=== PATIENT | male | born 1945 | race Caucasian/White ===

== ENCOUNTER → 2022-10-01 14:40 | Outpatient (BNVA) | payer MEDICARE, BC, OTHER, SELFPAY | PROVIDERS: PCP Internal Medicine; Visit Provider Psychiatry & Neurology Neurology | DX: R26.89 Other abnormalities of gait and mobility (principal) | CPT/HCPCS: 99202 ==

== ENCOUNTER → 2022-12-23 13:48 | Outpatient (BNVA) | payer MEDICARE, OTHER, SELFPAY | PROVIDERS: PCP Internal Medicine; Visit Provider Psychiatry & Neurology Neurology | DX: R26.89 Other abnormalities of gait and mobility (principal) | CPT/HCPCS: 99212 ==

== ENCOUNTER 2023-01-21 19:25 | Outpatient (REF) | payer MEDICARE, OTHER, SELFPAY ==
--- NOTE | ~2023-01-21 | MR_ITS ---
EXAMINATION: MRI OF THE BRAIN WITHOUT CONTRAST CLINICAL INFORMATION: Neurodegenerative disease. Abnormality of gait and mobility. COMPARISON: There are no prior studies available for comparison. Some images are degraded by patient motion artifact. TECHNIQUE: MRI of the brain was obtained using routine sequences without contrast. FINDINGS: No diffusion abnormalities are identified to suggest an acute or subacute infarct. No mass effect or midline shift is seen. The ventricles and sulci are commensurately prominent consistent with diffuse volume loss; volume loss is also noted in the cerebellum. There are extensive areas of increased T2 and FLAIR signal in the periventricular subcortical white matter, most consistent with chronic microvascular ischemic changes. There may be a 2 cm arachnoid cyst in the anterior left posterior fossa. The brainstem appears normal. No pathologic magnetic susceptibility artifact is identified on the gradient refocused acquisition. The craniocervical junction and marrow signal appear normal. 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 The major intracranial flow-voids at the level of the [place] are preserved. The dural venous sinus flow-voids are maintained. The mastoid air cells are well-aerated. There are small retention cysts in the inferior maxillary sinuses bilaterally. MR/MR head/brain wo con IMPRESSION: 1. There are no acute bleeds or territorial infarcts. No masses are demonstrated. 2. There are chronic microvascular ischemic changes and there is diffuse volume loss, including the cerebellum. There may be a 2 cm arachnoid cyst in the anterior left posterior fossa. 3. A 2 mm focus of low T1 signal in the pars intermedia of the pituitary gland may be consistent with a small pars intermedia cyst.
== END 2023-01-21 19:26 | disposition home or self-care (01) ==
LOC: HO.MRI 19:25
PROVIDERS: PCP Internal Medicine; Visit Provider Psychiatry & Neurology Neurology
DX: R26.89 Other abnormalities of gait and mobility (principal)
CPT/HCPCS: 70551

== ENCOUNTER 2023-06-08 14:55 | Outpatient (AMB) | payer MEDICARE, OTHER, SELFPAY ==
--- NOTE | 2023-06-08 15:09 | A.OFFVIS_ITS ---
Intake Vital Signs 06/08/23 15:14 Height 5 ft 11 in BP 122/78 Blood Pressure Location Rt brachial Position Sitting Respiration 17 Pulse 82 Pulse Source Pulse Oximeter Pulse Oximetry (%) 96 Oxygen Delivery Method Room Air Intake Visit Reasons: 4munsteadiness/stiffness (OK PER )-confirmed Intake Note: Pt presents to the office for his 4 month follow up and to discuss the results of his MRI. Allergies No Known Allergies Allergy (Verified 06/08/23 15:11) Medication List - Last Reconciled 06/08/23 by Demi Garcia MD albuterol sulfate 90 mcg/actuation inhalation amlodipine 2.5 mg PO DAILY bupropion HCl ea PO carbidopa-levodopa 25-100 mg 1 tab PO TID carbidopa-levodopa 25-100 mg (Sinemet) 1 tab PO QID fluoxetine 40 mg PO levothyroxine 75 mcg PO multivitamin 1 tab PO potassium chloride ER tabs PO temazepam 30 mg PO HPI HPI Comments History of Present Illness Details 78y/o male comes for evaluation of stiff ness , balance issues and gait problems.he responded to carbidopa/levodopa 25/100 1tab 11am, 4pm, 8pm.His gait and transfer in and out of the car is better no side effects No knee pain.He still has falls while transferring.He has urinary incontinence.He reports some cognitive issues. Previous history-He had bilateral knee replacements in November 2021 and March 2022. He was wheelchair bound for 6-12 mths prior to that which made his recovery slow. His knee pain resolved but his gait and balance did not improve. His balance and gait issues started atleast 10 years ago - he had knee pain. 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 He also had back pain many years ago treated with cortisone shots and has resolved. He denies any numbness, denies any tremors. He has h/o falls.He reports fh/o knee issues and has gait problems. He reports mild dysarthria. 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 Asthma Depression Hypothyroidism Surgical History Hx of shoulder surgery Hx of knee surgery Hx of appendectomy Family History Father COPD (chronic obstructive pulmonary disease) Mother Leukemia Social History Alcohol intake: never Patient Tobacco Use Status: Never used Tobacco Physical Exam Vital Signs: Last Vital Signs Pulse 82 06/08/23 15:14 Resp 17 06/08/23 15:14 BP 122/78 06/08/23 15:14 Pulse Ox 96 06/08/23 15:14 Oxygen Delivery Method Room Air 06/08/23 15:14 Const General: cooperative, healthy appearing and comfortable Nutritional Appearance: average body habitus Orientation/consciousness: patient oriented x3 Limitations: wheelchair HEENT Head: Yes normal to inspection and Yes normocephalic Eyes Pupils: Equal, round and reactive pupils present Neuro Other: good facial expression and blink Gait - better , good stride and unable to walk without assistance normal posture No tremors no cog wheel rigidity General: patient oriented x3 Cranial nerves: Yes Facial sensation intact/muscles of mastication intact, Yes Equal, round and reactive pupils present, Yes Bilaterally intact EOM present, Yes Nystagmus not present, Yes Normal facial strength present, Yes Midline tongue present, Yes Symmetric palate elevation present and Yes Ability to bilaterally elevate shoulders present Gait exam (Neuro): Shuffling gait present and Wide-based gait present Motor exam (neuro): 5/5 motor strength present throughout and Normal motor muscle tone present throughout Assessment & Plan Assessment & Plan (1) Neurodegenerative gait disorder: Comment: Frontal gait disorder, ? astasia katia Code(s): R26.89 - Other abnormalities of gait and mobility Plan Increase carbidopa/levodopa 25/100 1.5 tab qid side effects including GI distress, hypetension, dizziness etc discussed Medications: Changed From carbidopa-levodopa 25-100 mg (Sinemet) [id number] 1 tab PO QID 120 tabs 6RF To carbidopa-levodopa 25-100 mg (Sinemet) [id number] 1.5 tabs PO QID 180 tabs 6RF Coding Level of Care Code Est Pt Level 4 (93739) Diagnoses Neurodegenerative gait disorder R26.89
[2023-06-08 15:14] VITALS: BP 122/78; PULSE 82; RESP 17; O2SAT 96
== END 2023-06-08 15:32 | disposition home or self-care (01) ==
PROVIDERS: Visit Provider Psychiatry & Neurology Neurology
DX: R26.89 Other abnormalities of gait and mobility (principal)
CPT/HCPCS: 99214

== ENCOUNTER → 2023-06-08 14:55 | Outpatient (BNVA) | payer MEDICARE, OTHER, SELFPAY | PROVIDERS: Visit Provider Psychiatry & Neurology Neurology | DX: R26.89 Other abnormalities of gait and mobility (principal) | CPT/HCPCS: 99212 ==

== ENCOUNTER 2023-12-14 15:09 | Outpatient (AMB) | payer MEDICARE, OTHER, SELFPAY ==
--- NOTE | 2023-12-14 15:23 | A.OFFVIS_ITS ---
Vital Signs 12/14/23 15:24 Height 5 ft 11 in BP 168/82 H Blood Pressure Location Rt brachial Position Sitting Respiration 16 Pulse 71 Pulse Source Pulse Oximeter Pulse Oximetry (%) 98 Oxygen Delivery Method Room Air Intake Visit Reasons: 6M follow up-CONF Intake Note: Pt presents to the office for a 6 month follow up for Neurodegenerative gait disorder. Rn Angiography Required: No Allergies No Known Allergies Allergy (Verified 12/14/23 15:24) HPI Comments Details: 78y/o male comes for follow up of stiffness , balance issues and gait problems.He had knee surgery in Jul 2023 - revision and he is feeling better.He had mitarl valve repair in Sep 2023 and he is feeling better. He walks short distances with a walker. He responded to carbidopa/levodopa 25/100 1.5 tab 11am, 4pm, 8pm, 11pm .His gait and transfer in and out of the car is better no side effects No falls.He has urinary incontinence.He reports some cognitive issues. Speech is Ok Previous history-He had bilateral knee replacements in November 2021 and March 2022. He was wheelchair bound for 6-12 mths prior to that which made his recovery slow. His knee pain resolved but his gait and balance did not improve. His balance and gait issues started atleast 10 years ago - he had knee pain. 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 He also had back pain many years ago treated with cortisone shots and has resolved. He denies any numbness, denies any tremors. He has h/o falls.He reports fh/o knee issues and has gait problems. He reports mild dysarthria. 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 Asthma Depression Hypothyroidism Surgical History H/O mitral valve repair Hx of heart surgery H/O left knee surgery Hx of shoulder surgery Hx of knee surgery Hx of appendectomy Family History Father COPD (chronic obstructive pulmonary disease) Mother Leukemia Social History Alcohol intake: never Patient Tobacco Use Status: Never used Tobacco Physical Exam Vital Signs: Last Vital Signs Pulse 71 12/14/23 15:24 Resp 16 12/14/23 15:24 BP 168/82 H 12/14/23 15:24 Pulse Ox 98 12/14/23 15:24 Oxygen Delivery Method Room Air 12/14/23 15:24 Const General: cooperative, healthy appearing and comfortable Nutritional Appearance: average body habitus Orientation/consciousness: patient oriented x3 Limitations: wheelchair HEENT Head: Yes normal to inspection and Yes normocephalic Eyes Pupils: Equal, round and reactive pupils present Neuro Other: good facial expression and blink Gait - better , good stride and unable to walk without assistance normal posture No tremors no cog wheel rigidity General: patient oriented x3 Cranial nerves: Yes Facial sensation intact/muscles of mastication intact, Yes Equal, round and reactive pupils present, Yes Bilaterally intact EOM present, Yes Nystagmus not present, Yes Normal facial strength present, Yes Midline tongue present, Yes Symmetric palate elevation present and Yes Ability to bilaterally elevate shoulders present Gait exam (Neuro): Shuffling gait present and Wide-based gait present Motor exam (neuro): 5/5 motor strength present throughout and Normal motor muscle tone present throughout Deep tendon reflexes (DTR's): Right triceps reflex intensity grade: 1+, Left triceps reflex intensity grade: 1+, Rt Biceps (C5, C6): 1+, Left biceps reflex intensity grade: 1+, Right brachioradialis reflex intensity grade: 1+, Left brachioradialis reflex intensity grade: 1+, Right patellar reflex intensity grade: 1+ and Left patellar reflex intensity grade: 1+ Assessment & Plan Assessment & Plan (1) Neurodegenerative gait disorder: Comment: Frontal gait disorder, ? astasia abasia Code(s): R26.89 - Other abnormalities of gait and mobility Category: Medical Plan Continue carbidopa/levodopa 1 tabs qid side effects including GI distress, hypotension, dizziness etc discussed OT for hands Orders: Referrals [facility] Referral R26.89 - Other abnormalities of gait and mobility, R26.9 - Unspecified abnormalities of gait and mobility Coding Level of Care Code Est Pt Level 4 (45513) Diagnoses Neurodegenerative gait disorder R26.89
[2023-12-14 15:24] VITALS: BP 168/82; PULSE 71; RESP 16; O2SAT 98
== END 2023-12-14 15:58 | disposition home or self-care (01) ==
PROVIDERS: PCP Internal Medicine; Visit Provider Psychiatry & Neurology Neurology
DX: R26.89 Other abnormalities of gait and mobility (principal)
CPT/HCPCS: 99214

== ENCOUNTER → 2023-12-14 15:09 | Outpatient (BNVA) | payer MEDICARE, BC, OTHER, SELFPAY | PROVIDERS: PCP Internal Medicine; Visit Provider Psychiatry & Neurology Neurology | DX: R26.89 Other abnormalities of gait and mobility (principal) | CPT/HCPCS: 99212 ==

== ENCOUNTER 2024-08-31 14:27 | Outpatient (AMB) | payer MEDICARE, OTHER, SELFPAY ==
[2024-08-31 14:28] VITALS: BP 126/80
--- NOTE | 2024-08-31 14:28 | MHC.OFFVIS ---
Vital Signs 08/31/24 14:28 Height 5 ft 11 in BP 126/80 Blood Pressure Location Rt brachial Position Sitting Intake Visit Reasons: 6 mon follow up Intake Note: Patient presents for 6 month follow up Allergies No Known Allergies Allergy (Verified 08/31/24 14:32) Medication List - Last Reconciled 08/31/24 by Demi Garcia MD albuterol sulfate 90 mcg/actuation inhalation amlodipine 2.5 mg PO DAILY bupropion HCl SR ea PO carbidopa-levodopa 25-100 mg 2 tab at8 am 1.5tab at 11am 2tabs 5 pm 1.5 tabs 11pm orally 4 times a day; fluoxetine 40 mg PO levothyroxine 75 mcg PO multivitamin 1 tab PO potassium chloride ER tabs PO temazepam 30 mg PO HPI Comments Details: 79y/o male comes for follow up of stiffness , balance issues and gait problems.No worsening of his gait and balance.Mild worsening of his ADLS. He has difficulty writing He had knee surgery in Jul 2023 - revision and he is feeling better.He had mitral valve repair in Sep 2023 and he is feeling better. He walks short distances with a walker.No falls He responded to carbidopa/levodopa 25/100 1.5 tab 11am, 4pm, 8pm, 11pm .His gait and transfer in and out of the car is better no side effects .He has urinary incontinence.He reports some cognitive issues. Speech is Ok Previous history-He had bilateral knee replacements in November 2021 and March 2022. He was wheelchair bound for 6-12 mths prior to that which made his recovery slow. His knee pain resolved but his gait and balance did not improve. His balance and gait issues started atleast 10 years ago - he had knee pain. 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 He also had back pain many years ago treated with cortisone shots and has resolved. He denies any numbness, denies any tremors. He has h/o falls.He reports fh/o knee issues and has gait problems. He reports mild dysarthria. 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 Asthma Depression Hypothyroidism Surgical History H/O mitral valve repair Hx of heart surgery H/O left knee surgery Hx of shoulder surgery Hx of knee surgery Hx of appendectomy Family History Father COPD (chronic obstructive pulmonary disease) Mother Leukemia Social History Alcohol intake: never Patient Tobacco Use Status: Never used Tobacco Physical Exam Vital Signs: Last Vital Signs BP 126/80 08/31/24 14:28 Const General: cooperative, healthy appearing and comfortable Nutritional Appearance: average body habitus Orientation/consciousness: patient oriented x3 Limitations: wheelchair HEENT Head: Yes normal to inspection and Yes normocephalic Eyes Pupils: Equal, round and reactive pupils present Neuro Other: good facial expression and blink normal posture No tremors no cog wheel rigidity General: patient oriented x3 Cranial nerves: Yes Facial sensation intact/muscles of mastication intact, Yes Equal, round and reactive pupils present, Yes Bilaterally intact EOM present, Yes Nystagmus not present, Yes Normal facial strength present, Yes Midline tongue present, Yes Symmetric palate elevation present and Yes Ability to bilaterally elevate shoulders present Gait exam (Neuro): Shuffling gait present and Wide-based gait present Motor exam (neuro): 5/5 motor strength present throughout and Normal motor muscle tone present throughout Deep tendon reflexes (DTR's): Left patellar reflex intensity grade: 1+ Assessment & Plan Assessment & Plan (1) Neurodegenerative gait disorder: Comment: Frontal gait disorder, ? astasia abasia Code(s): R26.89 - Other abnormalities of gait and mobility Category: Medical Plan Increase carbidopa/levodopa 25/100 2-1.5-2-1.5 and in 1 mth will increase to 2tabs qid side effects including GI distress, hypotension, dizziness etc discussed OT for hands PT for gait Orders: Referrals [facility] Referral R26.89 - Other abnormalities of gait and mobility, W19.XXXA - Unspecified fall, initial encounter Medications: Changed From carbidopa-levodopa 25-100 mg 1 tab PO QID 180 tabs 6RF To carbidopa-levodopa 25-100 mg 2 tab at8 am 1.5tab at 11am 2tabs 5 pm 1.5 tabs 11pm orally 4 times a day; 180 tabs 6RF Refilled carbidopa-levodopa 25-100 mg 2 tab at8 am 1.5tab at 11am 2tabs 5 pm 1.5 tabs 11pm orally 4 times a day; 180 tabs 0RF Coding Level of Care Code Est Pt Level 4 (92057) Complex EM visit Add On G2211 Diagnoses Neurodegenerative gait disorder R26.89
--- OUTSIDE RECORDS SUMMARY | 2024-08-31 19:09 | XMS_ITS | Data Portability ---
Author Organization [place] [facility] [place] Address [address] [place] [address] Care Team Providers Care Load Manager Name Role Phone CAIT SALAZAR Referring Provider [facility] Primary Care Provider [phone] Assessment Encounter Date Assessment Date Assessment LastModified by Organization Details LastModified Time 04/14/2023 04/14/2023 HPI : Patient is here for 1 year follow-up for a LEFT total knee replacement.? ? he also has a history of a right total knee replacement with me from 1.5 years ago. He has been doing well in regards to both knees really minimal pain. 3 weeks ago he developed a fall on the left knee. There was some increased swelling and pain at that time. It has since reduced. He has a history of patellar dislocations and the procedure for this. He did think that he had more lateral subluxation of the patella after he fell, but this has resolved as well. Right now he reports minimal pain. He uses a walker because of balance issues. Overall, patient reports good pain relief in the knee and satisfactory pentecostal of function in terms of activities of daily living. Physical Exam : Patient is well nourished, well-developed, in no acute distress, with appropriate mood and affect. The patient is oriented to time, place, and person. Respirations are even and unlabored. There is no inguinal adenopathy. The left limb is well-perfused, with well healed skin incision. The patient demonstrates good knee motion, stability, and strength. The knee moves from 0-135 degrees. The alignment of the knee is neutral. Muscle strength is normal. There is more swelling in the left knee compared to the right knee. No lateral subluxation with range of motion of the left knee. The right limb is well-perfused, with well healed skin incision. The patient demonstrates good knee motion, stability, and strength. The knee moves from 0-135 degrees. The alignment of the knee is neutral. Muscle strength is normal. Pedal pulses are palpable. Hip examination, including flexion and internal rotation, was negative in that groin pain was not produced.produced. Assessment/Plan : This patient is functioning well 1 year after staged bilateral total knee arthroplasty. Continue knee conditioning exercises. [id number] medications as needed. He is instructed to keep me updated if he has continued subluxations given his history. Ultimate failure may occur due to mechanical wear, loosening or breakage. Follow-up is recommended to assess for the possibility of failure. Follow-up at 5 years from surgery unless there are new issues before then. Not available 04/14/2023 14:24:35 07/06/2023 07/06/2023 HPI : ? patient is coming in with new complaints in his left knee, status post left total knee replacement in February 2022 by me. He did have a history of Sandy osteotomy many years ago with recurrent patellar dislocations. He is now having worsening left knee symptoms. These seem to be related to patellar subluxations. I did see him in March and he had this event, but seem to be resolving. It has now worsened. He states that is limiting his weightbearing. He states it is painful when weightbearing. Review of systems is negative for rapidly progressive neurological disorder, chest pain, shortness of breath, fevers, chills, or any signs of active or persistent local or systemic infection. Physical Exam : Patient is well nourished, well-developed, in no acute distress, with appropriate mood and affect. The patient is oriented to time, place, and person. Respirations are even and unlabored. Gait evaluation does reveal a limp. There is no inguinal adenopathy. Examination of the contralateral knee shows normal range of motion, strength, no tenderness, and intact skin. The affected limb is well-perfused, shows a grossly normal motor and sensory examination. The previous skin incision is well-healed. Left knee motion is significantly reduced and does cause significant pain. The patella is dislocated laterally in the flexion position. The knee moves from 10-90 degrees. The alignment of the knee is neutral. Muscle strength is normal. Pedal pulses are palpable. Hip examination, including flexion and internal rotation, was negative in that groin pain was not produced. Assessment/Plan : The patient is an appropriate candidate for consideration of revision left total knee replacement for patellar dislocation and chronic patellar subluxation. Plan will likely be for medial reefing, lateral release, and patellar resurfacing. We are going to try avoid tibial and femoral component revision, due to comorbidities associated with this and patient preference. An extensive discussion was conducted on the variety of surgical and non-surgical treatment options available to the patient. A risk/benefit analysis was discussed with the patient reviewing the advantages and disadvantages of surgical intervention at this time. A full explanation was given of the nature and the purpose of the procedure and anesthesia, its benefits, possible alternative methods of diagnosis of treatment, the risks involved, the possibility of complications, the foreseeable consequences of the procedure and the possible results of the non-treatment. No guarantee or assurance was made as to the results that may be obtained. Specifically, the risks were identified to include, but are not limited, to the following: Infection, phlebitis, pulmonary embolism, , paralysis, dislocation, pain, stiffness, instability, limp, weakness, breakage, leg-length inequality, uncontrolled bleeding, nerve injury, blood vessel injury, pressure sores, anesthetic risks, delayed healing of wound and bone, and wear and loosening. Discussed with patients that these risks are increased compared to primary knee replacement surgery. Further discussion was undertaken with the patient about the details of surgical preparation, treatment and postoperative rehabilitation including medical clearance, the hospital course and the postoperative rehabilitation involved. As a part of routine preoperative counseling, the patient either denies recent smoking history or, after education was provided, agrees to practice smoking cessation over at least two months prior to surgery. The patient has also been counseled regarding the elevated risk of surgical complications in patients with an elevated BMI. The patient demonstrates understanding of the increased risk in such patients. The patient was encouraged to participate in physical activity and diet modification under the direction of their primary care physician. We will plan on proceeding with left total knee arthroplasty using the [place] revision total knee replacement system. However, it is possible during the preoperative planning process or due to intraoperative findings that a different implant system may be utilized in order to optimize the patient's outcome. We had a discussion regarding implant and bearing options. We had a detailed discussion of the advantages and limitations of the specific implant designs, materials and bearing surfaces. All questions were answered to the patient's satisfaction, and the patient was asked to call the office with any further concerns. All in all, I feel that this patient is a good candidate for surgical reconstruction.? I did have discussion with patient and son, that I am not confident this will bring a correction solution for his patellar issues. Often times, the patella can resubluxate over time even after soft tissue repair. He and his son are aware of this. More invasive bony and revision procedures are not preferred by patient. Plan for left limited revision total knee replacement at [place] [facility] [place]. Not available 07/06/2023 16:14:21 08/17/2023 08/17/2023 HPI : Patient is here for a 2 week follow-up from a left revision total knee replacement for patellar maltracking. He is recovering well. He has been in a knee immobilizer. He has left this on. This was removed today. He has minimal pain. He has been at a rehab facility. Physical Exam : Patient is well nourished, well- developed, in no acute distress, with appropriate mood and affect. The patient is AAOx3. The patient demonstrates good knee motion and strength. The incision is c/d/i patient is able to straight leg raise with good patellar tracking.. Assessment/Plan : The patient is functioning well 2 weeks from left revision total knee arthroplasty for patellar maltracking. Continue anticoagulation therapy for 2 week. Patient will be likely discharged from the rehab facility. He is getting get home physical therapy. Instruction for weightbearing as tolerated. No range of motion of the left knee. He is can to stay in the hinged knee brace which we are providing today locked in extension. He will follow-up with me in 1 month we will get x-rays of the left knee at that time. Patient was prescribed a t scope for above diagnosis. The patient is ambulatory but has weakness and/or instability of their Left knee which requires stabilization from this semi-rigid / rigid orthosis to improve their function. Not available 08/17/2023 14:59:30 09/14/2023 09/14/2023 HPI : Patient is here for a 6 week follow-up from a revision total knee replacement. He has been in a knee immobilizer locked in extension. He is not having any pain. He is functioning appropriately. Physical Exam : Patient is well nourished, well- developed, in no acute distress, with appropriate mood and affect. The patient is AAOx3. The patient demonstrates good knee motion and strength. The incision is well healed. There is no lateral subluxation of the patella with range of motion of the knee. Range of motion is 0 to 105 degrees today. Assessment/Plan : The patient is functioning well 6 weeks from revision total knee replacement for lateral patellar subluxation. The patella is not subluxating. We discussed possibilities today, including continued brace wear, versus allowing range of motion. It is possible that further knee extension would allow for further healing, although it is unclear the appropriate timeline. It is patient preference to discontinue knee immobilizer, which I think is reasonable. He is aware that there is a risk that the patella can resubluxate with time even after our revision surgery. Plan for weight bearing as tolerated. Range of motion as tolerated, but would avoid aggressive flexion. He will follow-up with me in 2 months with x-rays of the left knee at that time. Not available 09/14/2023 15:58:18 11/16/2023 11/16/2023 HPI : Patient is here for 3-month follow-up from left revision total knee replacement. He is recovering very well. He reports 0 pain. He reports good function. He is not having the preoperative symptoms around the patella. He is happy with his progress. He is ambulating with a walker. Physical Exam : Patient is well nourished, well-developed, in no acute distress, with appropriate mood and affect. The patient is oriented to time, place, and person. Respirations are even and unlabored. There is no inguinal adenopathy. Examination of the contralateral knee shows normal range of motion, strength, no tenderness, and intact skin. The affected limb is well-perfused, with well healed skin incision. The patient demonstrates good knee motion, stability, and strength. The knee moves from 0-125 degrees. The alignment of the knee is neutral. Muscle strength is normal. The patella is tracking appropriately throughout the range of motion. Pedal pulses are palpable. Hip examination, including flexion and internal rotation, was negative in that groin pain was not produced. Assessment/Plan : The patient is functioning well 6 weeks from revision total knee replacement for lateral patellar subluxation. The patella is not subluxating. He is aware that there is a risk that the patella can resubluxate with time even after our revision surgery. He will follow-up with me at 1 year from surgery with repeat x-rays of the left knee at that time. Not available 11/16/2023 16:09:00 Plan of Treatment Reminders Order Date Submit Date Provider Last Modified By Organization Details Last Modified Time Details Appointments None recorded. Lab None recorded. Referral None recorded. Procedures None recorded. Surgeries total knee arthroplast y (SURG) 2022 023 [facility] [place] [facility], [address] [place] [address], [address], 3 08:34:57 Imaging XR, knee, 3 view 2022 023 [email or web address] [facility], [address], [address], [place], [address], 3 14:22:00 XR, knee, 3 view 2022 023 [facility], [address], [address], [place], [address], 3 16:36:37 XR, knee, 3 view 2023 024 [email or web address] [facility], [address], [place], [address], 4 15:47:31 XR, knee, 3 view 2023 024 [facility], [address], [place], [address], 4 16:55:18 Medication Orders None recorded. Patient TargetsNo targets recorded. Patient Instructions Encounter Date Encounter Id Patient Instructions Last Modified By Organization Details Last Modified Time 04/14/2023 [id number] AP, lateral, and patellar views of the left knee demonstrate a left total knee replacement with 50 mm tibial stem component without any signs of hardware related complications. There is some lateral subluxation of the patellar component, although it is still within the notch. Not available 04/14/2023 14:24:25 09/14/2023 [id number] AP, lateral, patellar views of the left knee demonstrate a left total knee replacement. The patella is within the trochlear groove. There is lateral tilt. There is no signs of other hardware related complications. Not available 09/14/2023 15:58:46 11/16/2023 [id number] AP, lateral, and patellar radiographs of the left knee taken today demonstrate satisfactory position and alignment of components following left total knee replacement. There is lateral tilt of the patella as seen in x-rays from August, with no change in tilt. The patella is appropriately positioned within the trochlear groove. Not available 11/16/2023 16:09:20 Reason for Referral None Reported. Problems Name Problem SNOMED Code Status Onset Date Resolution Date Notes Provider Name and Address Organization Details Recorded Time Recurrent subluxation of the patella 644361480 Active 2022 Natalia Guevara [facility], [place] [facility] 4 14:43:50 History of hypothyroid ism 880441434 Active 2022 Natalia Guevara [facility], [place] [facility] 4 14:43:50 History of hypertensio n 115771905 Active 2022 Natalia Guevara [facility], [place] [facility] 4 14:43:50 Bipolar affective disorder, current episode depression 753863738 Active 2022 Natalia Guevara null, [place] [facility] 4 14:43:50 Asthma 975438840 Active 2022 Natalia Guevara null, [place] [facility] 4 14:43:50 Tremor 97816971 Active 2022 Natalia Guevara null, [place] [facility] 4 14:43:50 Recurrent falls 140219387 Active 2022 Natalia Guevara null, [place] [facility] 4 14:43:51 Osteoarthri tis of left knee joint 2381411738572 09 Active 2021 Natalia Guevara null, [place] [facility] 4 14:43:51 Hypokalemia 44112297 Active 2022 Natalia Guevara null, [place] [facility] 4 14:43:51 Essential hypertensio n 85619752 Active 2021 Natalia Guevara null, [place] [facility] 4 14:43:51 History of revision of left total knee arthroplast y 4054890652248 03 Active 2022 Natalia Guevara null, [place] [facility] 4 14:43:51 Cyst of kidney 753173082 Active 2022 Natalia Guevara null, [place] [facility] 4 14:43:51 Urgent desire to urinate 03252996 Active 2022 Natalia Guevara [facility], [place] [facility] 4 14:43:51 Spinal stenosis 80091729 Active 2022 Natalia Guevara [facility], [place] [facility] 4 14:43:51 Obstructive sleep apnea syndrome 31820255 Active 2022 Natalia Guevara null, [place] [facility] 4 14:43:51 Severe mitral valve regurgitati on 365165494 Active 2022 Natalia Guevara [facility], [place] [facility] 4 14:43:51 Problem Notes None recorded. Procedures Surgical History Date Name Laterality Status Provider Name and Address Organization Details Recorded Time 08/02/20 23 TOTAL KNEE ARTHROPLASTY (SURG) completed Jaci Lamar [place] [facility] 08/19/2023 17:54:46 Knee Surgery completed Natalia Guevara [place] [facility] 12/22/2022 14:19:32 Knee Surgery completed Natalia Guevara [place] [facility] 12/22/2022 14:19:33 Imaging Results None recorded. Procedure Notes None recorded. Medical Equipment None Reported. Allergies Allergen ID Allergen Name Allergen Category Reaction Reaction Severity Criticality Documentation Date Start Date Code Code System Note Provider Name and Address Organization Details Recorded Time 08332 No known allergy (situatio n) Not available Not available Not available Not available 08/17/2023 67696 6003 SNOMED Natalia Guevara null, [place] [facility] 14:43:49 Medications Name Sig Start Date Stop Date Status Note LastModified by Organization Details LastModified Time multivitami n tablet TAKE 1 TABLET BY MOUTH EVERY DAY active Not Available Not Available No t Available fluoxetine 40 mg capsule TAKE 2 CAPSULES BY MOUTH EVERY DAY active Not Available Not Available No t Available potassium chloride ER 10 mEq capsule,ext ended release active Not Available Not Available Not Available prednisone 10 mg tablet 11/22 completed Not Available Not Available Not Available doxycycline hyclate 100 mg capsule 100 mg by oral route. 08/11 completed Not Available Not Available Not Available albuterol sulfate 2.5 mg/3 mL (0.083 %) solution for nebulizatio n active Not Available Not Available Not Available prednisone 20 mg tablet 11/22 completed Not Available Not Available Not Available amlodipine 2.5 mg tablet TAKE 1 TABLET BY MOUTH DAILY 11/22 completed Not Available Not Available Not Available sulfamethox azole 800 mg-trimetho prim 160 mg tablet 11/22 completed Not Available Not Available Not Available aspirin 81 mg tablet,darien yed release 81 mg by oral route. active Not Available Not Available No t Available Macrobid 100 mg capsule 100 mg by oral route. 08/08 completed Not Available Not Available Not Available meloxicam 7.5 mg tablet 7.5 mg by oral route. 08/19 completed Not Available Not Available Not Available Zofran 4 mg tablet Take 4 mg every 6 hours by oral route. 11/22 completed Not Available Not Available Not Available potassium chloride ER 20 mEq tablet,exte nded release(par t/cryst) TAKE 1 TABLET BY MOUTH TWICE DAILY FOR 5 DAYS 11/22 completed Not Available Not Available Not Available famotidine 20 mg tablet 11/22 completed Not Available Not Available Not Available methocarbam ol 750 mg tablet 750 mg 4 times a day by oral route. 08/25 completed Not Available Not Available Not Available temazepam 15 mg capsule TAKE 1 TO 2 CAPSULES BY MOUTH AT BEDTIME NEEDED active Not Available Not Available No t Available tamsulosin 0.4 mg capsule 0.4 mg by oral route. active Not Available Not Available No t Available pantoprazol e 40 mg tablet,darien yed release 40 mg by oral route. active Not Available Not Available No t Available warfarin 5 mg tablet active Not Available Not Available No t Available levothyroxi ne 150 mcg tablet 300 ugs by oral route. active Not Available Not Available No t Available Senokot 8.6 mg tablet 1 {tbl} by oral route. 08/18 completed Not Available Not Available Not Available albuterol sulfate HFA 90 mcg/actuati on aerosol inhaler active Not Available Not Available Not Available carbidopa 25 mg-levodopa 100 mg tablet 1.5 {tbl}s by oral route. active Not Available Not Available No t Available amoxicillin 875 mg-potassiu m clavulanate 125 mg tablet TAKE 1 TABLET BY MOUTH TWICE DAILY FOR 5 DAYS 11/22 completed Not Available Not Available Not Available Tylenol Extra Strength 500 mg tablet 1000 mg every 6 hours by oral route. 08/25 completed Not Available Not Available Not Available bupropion HCl SR 200 mg tablet,12 hr sustained-r elease TAKE 1 TABLET BY MOUTH EVERY DAY active Not Available Not Available No t Available bupropion HCl XL 300 mg 24 hr tablet, extended release 11/22 completed Not Available Not Available Not Available metoprolol tartrate 25 mg tablet active Not Available Not Available No t Available carbidopa 25 mg-levodopa 100 mg disintegrat ing tablet active Not Available Not Available N ot Available Vitamin D3 active Not Available Not Av ailable Not Available Vitamin B12 active Not Available Not A vailable Not Available oxycodone 5 mg tablet,oral ONLY (not feeding tubes) Take 5 mg every 4 hours by oral route. 11/22 completed Not Available Not Available Not Available Vitals Date Recorded Body height Body mass index (BMI) Body weight Provider Name and Address Organization Details Last Updated DateTime 07/06/2023 177.8 cm 25.8 kg/m2 [address]1936.[address] [place] [facility] 07/06/2023 13:56:26 Date Recorded Body height Body mass index (BMI) Body weight Provider Name and Address Organization Details Last Updated DateTime 08/17/2023 177.8 cm 25.8 kg/m2 71655.[address] [place] [facility] 08/17/2023 14:44:30 Date Recorded Body height Provider Name an d Address Organization Details Last Updated DateTime 09/14/[address] [place] [facility] 09/14/2023 14:58:12 Date Recorded Body height Body mass index (BMI) Body weight Provider Name and Address Organization Details Last Updated DateTime 11/16/2023 177.8 cm 25.8 kg/m2 87681.[address] [place] [place] [facility] 11/16/2023 15:33:01 Social History None recorded. Functional Status None recorded. Mental Status None recorded. Family History Relationship Description Onset Age of this Age Resolved Age Notes LastModified by Organization Details LastModified Time Mother Family history of malignant neoplasm [email or web address] Not available 2022 14:19:26 Medical History Condition Response Asthma Y Immunizations Vaccine Type Date Status Note Provider Nam e and Address Organization Details Recorded Time COVID-19, mRNA, LNP-S, PF, 30 mcg/0.3 mL dose 03/14/2022 completed Natalia Guevara [facility], [place] [facility] 08/17/2023 14:43:51 Past Encounters Encounter ID Performer Location Encounter Start Date Encounter Closed Date Diagnosis/Indication Diagnosis SNOMED-CT Code Diagnosis ICD10 Code Diagnosis Note [id number] MD ALEX [address] [place] [address] 12/22/2022 13:52:56 12/22/2022 14:45:33 History of right total knee replacement [id number] 442452 Z96.651 History of left total knee replacement 2652551968 516410 Z96.652 Aftercare 429180017 Z47. 1 [id number] MD LAURYN Ge [address] [place] [address] [place] [address] 04/14/2023 13:37:20 04/14/2023 14:22:00 History of left total knee replacement [id number] 021331 Z96.652 [id number] MD LAURYN Ge [address] [address] 07/06/2023 13:31:27 07/06/2023 14:41:11 History of left total knee replacement 7065491875 649130 Z96.652 Recurrent subluxation of the patella 233365961 M22.12 [id number] MD LAURYN Ge [place] [id number] 08/17/2023 14:17:38 08/17/2023 15:20:19 History of revision of left total knee arthroplasty 6966186064 41501 Z96.652 [id number] MD LAURYN Ge [place] [id number] 09/14/2023 14:18:59 09/14/2023 15:47:31 History of left total knee replacement 6977031243 514499 Z96.652 Aftercare 106494020 Z47. 1 [id number] MD LAURYN Ge [address] [address] 11/16/2023 15:09:36 11/16/2023 16:03:31 History of total knee arthroplasty 1134985966 105 Z96.652 Additional diagnosis detail: Status post left knee replacemen t Surgical follow-up [id number] Z47.1 Z96.652 Additional diagnosis detail: Aftercare following left knee joint replacemen t surgery Health Concerns Section Related Observation LastModified by Organization Detai ls LastModified Time None Recorded Concern Status LastModified by Organization Details LastModified Time None Recorded Advance Directives Directive None Recorded Payers Encounter Date Sequence Insurance Name Policy Number Policy Hansen Covered Member ID Hansen Member ID Guarantor Name 04/14/2023 1 MEDICARE B-CT: NGS Lukasz Felicitas Roberts [id number] Lukaszelton Roberts 04/14/2023 2 [employer]AN ([place]) [id number] Lukaszelton Roberts [id number] Lukasz Felicitas Roberts 07/06/2023 1 MEDICARE B-CT: NGS Lukasz Roberts [id number] Lukasz Felicitas Roberts 07/06/2023 2 [employer]AN ([place]O) [id number] Lukaszelton Roberts [id number] Lukasz Felicitas Roberts 08/17/2023 1 MEDICARE B-CT: NGS Lukasz Roberts [id number] Lukasz Roberts 08/17/2023 2 [employer] ([place]) [id number] Lukaszelton Roberts [id number] Lukasz Roberts 09/14/2023 1 MEDICARE B-CT: NGS Lukasz Roberts [id number] Lukasz Felicitas Roberts 09/14/2023 2 [employer] ([place]) [id number] Lukasz Roberts [id number] Lukasz Roberts 11/16/2023 1 MEDICARE B-CT: NGS Lukasz Roberts [id number] Lukasz Felicitas Roberts 11/16/2023 2 [employer] (PPO) [id number] Lukasz Roberts [id number] Lukasz Roberts
--- OUTSIDE RECORDS SUMMARY | 2024-08-31 19:11 | XMS_ITS ---
Author Name [facility] Organization Unknown Results Test Name/Text Value Interpretation Date Range Source PT TIME PPP 20.6sec Above high normal [id number] 10.5 - 13.3 [facility] INR PPP 1.7 Above high normal [id number] 0.8 - 1.1 [facility] PT TIME PPP 18.9sec Above high normal [id number] 10.5 - 13.3 [facility] INR PPP 1.6 Above high normal [id number] 0.8 - 1.1 [facility] MAGNESIUM SERPL MCNC 2mg/dL Normal 1.7 - 2.8 [facility] CREAT SERPL [facility] 0.8mg/dL Normal [id number] 0.7 - 1.3 [facility] SODIUM SERPL SCNC 137mmol/L Normal [id number] 135 - 145 [facility] GLUCOSE SERPL [facility]NC 97mg/dL Normal [id number] 70 - 199 [facility] Glomerular filtration rate/1.73 sq M. predicted 89 Normal 60 - [facility] CHLORIDE SERPL SCNC 103mmol/L Normal [id number] 98 - 107 [facility] HCO3 SER SCNC 27mmol/L Normal [id number] 24 - 32 [facility] POTASSIUM SERPL SCNC 3.7mmol/L Normal [id number] 3.5 - 5.1 [facility] ANION GAP SERPL SCNC 7mmol/L Normal [id number] 5 - 14 [facility] BUN SERPL [facility] 23mg/dL Above high normal [id number] 9 - 20 [facility] CALCIUM SERPL [facility] 8.5mg/dL Normal [id number] 8.4 - 10 .2 [facility] DIFFERENTIAL TYPE AUTOMATED Normal [id number] [facility] NEUTROPHILS NFR BLD AUTO 75% Above high normal [id number] 44 - 74 [facility] BASOPHILS NFR BLD AUTO 1.1% Normal [id number] 0 - 2 [facility] MONOCYTES NFR BLD AUTO 10.4% Normal [id number] 2 - 12 [facility] HCT VFR BLD AUTO 27.1% Below low normal [id number] 40 - 54 [facility] MONOCYTES NO. BLD AUTO 0.8K/uL Normal [id number] 0 - 0.8 [facility] RDW RBC AUTO RTO 15.1% Normal [id number] 12.1 - 17. 7 [facility] PLATELET NO. BLD AUTO 329K/uL Normal [id number] 150 - 450 [facility] EOSINOPHIL NO. BLD AUTO 0.3K/uL Normal [id number] 0 - 0.5 [facility] RBC NO. BLD AUTO 2.95M/uL Below low normal [id number] 4.7 - 6 [facility] MCH RBC QN AUTO 31.1pg Normal [id number] 25 - 33 [facility] MCHC RBC AUTO MCNC 33.9g/dL Normal [id number] 32 - 36 [facility] HGB BLD MCNC 9.2g/dL Below low normal [id number] 13.5 - 18 [facility] BASOPHILS IN BLOOD BY AUTOMATED COUNT 0.1K/uL Normal [id number] 0 - 0.2 [facility] WBC NO. BLD AUTO 7.8K/uL Normal [id number] 4 - 10.5 [facility] EOSINOPHIL NFR BLD AUTO 4% Normal [id number] 0 - 6 [facility] LYMPHOCYTES NFR BLD AUTO 9.5% Below low normal [id number] 20 - 48 [facility] MCV RBC AUTO 92fL Normal [id number] 78 - 100 [facility] NEUTROPHILS NO. BLD AUTO 5.8K/uL Normal [id number] 1.8 - 7.8 [facility] LYMPHOCYTES NO. BLD AUTO 0.7K/uL Below low normal [id number] 1 - 3.2 [facility] PMV BLD AUTO 7.8fL Normal [id number] 7.4 - 11.4 [facility] PHOSPHATE SERPL MCNC 2.9mg/dL Normal [id number] 2.5 - 4.5 [facility] MAGNESIUM SERPL MCNC 2.1mg/dL Normal [id number] 1.7 - 2.8 [facility] CREAT SERPL MCNC 0.8mg/dL Normal [id number] 0.7 - 1.3 [facility] SODIUM SERPL SCNC 138mmol/L Normal [id number] 135 - 145 [facility] GLUCOSE SERPL MCNC 81mg/dL Normal [id number] 70 - 199 [facility] Glomerular filtration rate/1.73 sq M. predicted 89 Normal [id number] 60 - [facility] CHLORIDE SERPL SCNC 102mmol/L Normal [id number] 98 - 107 [facility] HCO3 SER SCNC 30mmol/L Normal [id number] 24 - 32 [facility] POTASSIUM SERPL SCNC 3.8mmol/L Normal [id number] 3.5 - 5.1 [facility] ANION GAP SERPL SCNC 6mmol/L Normal [id number] 5 - 14 [facility] BUN SERPL MCNC 20mg/dL Normal [id number] 9 - 20 [facility] CALCIUM SERPL MCNC 8.2mg/dL Below low normal [id number] 8 .4 - 10.2 [facility] PT TIME PPP 19.7sec Above high normal [id number] 10.5 - 13.3 [facility] INR PPP 1.7 Above high normal [id number] 0.8 - 1.1 [facility] RBC NO. BLD AUTO 2.83M/uL Below low normal [id number] 4.7 - 6 [facility] MCH RBC QN AUTO 30.8pg Normal [id number] 25 - 33 [facility] MCHC RBC AUTO MCNC 33.1g/dL Normal [id number] 32 - 36 [facility] HGB BLD MCNC 8.7g/dL Below low normal [id number] 13.5 - 18 [facility] WBC NO. BLD AUTO 6.2K/uL Normal [id number] 4 - 10.5 [facility] HCT VFR BLD AUTO 26.3% Below low normal [id number] 40 - 54 [facility] MCV RBC AUTO 93fL Normal [id number] 78 - 100 [facility] RDW RBC AUTO RTO 15.4% Normal [id number] 12.1 - 17. 7 [facility] PLATELET NO. BLD AUTO 241K/uL Normal [id number] 150 - 450 [facility] PMV BLD AUTO 8fL Normal [id number] 7.4 - 11.4 [facility] GLUCOSE BLDC GLUCOMTR MCNC 87mg/dL Normal [id number] 70 - 199 [facility] GLUCOSE BLDC GLUCOMTR MCNC 93mg/dL Normal [id number] 70 - 199 [facility] GLUCOSE BLDC GLUCOMTR MCNC 84mg/dL Normal [id number] 70 - 199 [facility] DIFFERENTIAL TYPE AUTOMATED Normal [id number] [facility] NEUTROPHILS NFR BLD AUTO 77% Above high normal [id number] 44 - 74 [facility] BASOPHILS NFR BLD AUTO 0.5% Normal [id number] 0 - 2 [facility] MONOCYTES NFR BLD AUTO 11% Normal [id number] 2 - 12 [facility] HCT VFR BLD AUTO 26.4% Below low normal [id number] 40 - 54 [facility] MONOCYTES NO. BLD AUTO 0.8K/uL Normal [id number] 0 - 0.8 [facility] RDW RBC AUTO RTO 15.5% Normal [id number] 12.1 - 17. 7 [facility] PLATELET NO. BLD AUTO 202K/uL Normal [id number] 150 - 450 [facility] EOSINOPHIL NO. BLD AUTO 0.2K/uL Normal [id number] 0 - 0.5 [facility] RBC NO. BLD AUTO 2.85M/uL Below low normal [id number] 4.7 - 6 [facility] MCH RBC QN AUTO 31.3pg Normal [id number] 25 - 33 [facility] MCHC RBC AUTO MCNC 33.8g/dL Normal [id number] 32 - 36 [facility] HGB BLD MCNC 8.9g/dL Below low normal [id number] 13.5 - 18 [facility] BASOPHILS IN BLOOD BY AUTOMATED COUNT 0K/uL Normal [id number] 0 - 0.2 [facility] WBC NO. BLD AUTO 7.7K/uL Normal [id number] 4 - 10.5 [facility] EOSINOPHIL NFR BLD AUTO 2.2% Normal [id number] 0 - 6 [facility] LYMPHOCYTES NFR BLD AUTO 9.3% Below low normal [id number] 20 - 48 [facility] MCV RBC AUTO 92.7fL Normal [id number] 78 - 100 [facility] NEUTROPHILS NO. BLD AUTO 5.8K/uL Normal [id number] 1.8 - 7.8 [facility] LYMPHOCYTES NO. BLD AUTO 0.7K/uL Below low normal [id number] 1 - 3.2 [facility] PMV BLD AUTO 8.5fL Normal [id number] 7.4 - 11.4 [facility] CREAT SERPL MCNC 0.7mg/dL Normal [id number] 0.7 - 1.3 [facility] SODIUM SERPL SCNC 136mmol/L Normal [id number] 135 - 145 [facility] GLUCOSE SERPL MCNC 87mg/dL Normal [id number] 70 - 199 [facility] Glomerular filtration rate/1.73 sq M. predicted 93 Normal [id number] 60 - [facility] CHLORIDE SERPL SCNC 102mmol/L Normal [id number] 98 - 107 [facility] HCO3 SER SCNC 28mmol/L Normal [id number] 24 - 32 [facility] POTASSIUM SERPL SCNC 3.8mmol/L Normal [id number] 3.5 - 5.1 [facility] ANION GAP SERPL SCNC 6mmol/L Normal [id number] 5 - 14 [facility] BUN SERPL MCNC 18mg/dL Normal [id number] 9 - 20 [facility] CALCIUM SERPL MCNC 8.5mg/dL Normal [id number] 8.4 - 10 .2 [facility] MAGNESIUM SERPL MCNC 2.2mg/dL Normal [id number] 1.7 - 2.8 [facility] PT TIME PPP 18.8sec Above high normal [id number] 10.5 - 13.3 [facility] INR PPP 1.6 Above high normal [id number] 0.8 - 1.1 [facility] APTT TIME PPP 30sec Normal [id number] 25 - 37 [facility] GLUCOSE BLDC GLUCOMTR MCNC 110mg/dL Normal [id number] 70 - 199 [facility] HGB BLD MCNC 9.1g/dL Below low normal [id number] 13.5 - 18 [facility] HCT VFR BLD AUTO 26.7% Below low normal [id number] 40 - 54 [facility] Normal [id number] [facility] ABO+RH GP BLD Normal [id number] [facility] BLD GP AB SCN SERPL QL Normal [id number] [facility] GLUCOSE BLDC GLUCOMTR MCNC 92mg/dL Normal [id number] 70 - 199 [facility] TRANS NUM UNITS PACKED RBC Normal [id number] [facility] TRANS NUM UNITS PACKED RBC Normal [id number] [facility] CREAT SERPL MCNC 0.6mg/dL Below low normal [id number] 0.7 - 1.3 [facility] SODIUM SERPL SCNC 137mmol/L Normal [id number] 135 - 145 [facility] GLUCOSE SERPL MCNC 110mg/dL Normal [id number] 70 - 199 [facility] Glomerular filtration rate/1.73 sq M. predicted 98 Normal [id number] 60 - [facility] CHLORIDE SERPL SCNC 103mmol/L Normal [id number] 98 - 107 [facility] HCO3 SER SCNC 28mmol/L Normal [id number] 24 - 32 [facility] POTASSIUM SERPL SCNC 3.6mmol/L Normal [id number] 3.5 - 5.1 [facility] ANION GAP SERPL SCNC 6mmol/L Normal [id number] 5 - 14 [facility] BUN SERPL MCNC 18mg/dL Normal [id number] 9 - 20 [facility] CALCIUM SERPL MCNC 8.1mg/dL Below low normal [id number] 8 .4 - 10.2 [facility] MAGNESIUM SERPL MCNC 2mg/dL Normal [id number] 1.7 - 2.8 [facility] PT TIME PPP 13.7sec Above high normal [id number] 10.5 - 13.3 [facility] INR PPP 1.1 Normal [id number] 0.8 - 1.1 [facility] APTT TIME PPP 28sec Normal [id number] 25 - 37 [facility] RBC NO. BLD AUTO 2.16M/uL Below low normal [id number] 4.7 - 6 [facility] MCH RBC QN AUTO 31.9pg Normal [id number] 25 - 33 [facility] MCHC RBC AUTO MCNC 34.3g/dL Normal [id number] 32 - 36 [facility] HGB BLD MCNC 6.9g/dL Below low normal [id number] 13.5 - 18 [facility] WBC NO. BLD AUTO 7.7K/uL Normal [id number] 4 - 10.5 [facility] HCT VFR BLD AUTO 20.1% Below low normal [id number] 40 - 54 [facility] MCV RBC AUTO 93fL Normal [id number] 78 - 100 [facility] RDW RBC AUTO RTO 15.3% Normal [id number] 12.1 - 17. 7 [facility] PLATELET NO. BLD AUTO 150K/uL Normal [id number] 150 - 450 [facility] PMV BLD AUTO 8.5fL Normal [id number] 7.4 - 11.4 [facility] GLUCOSE BLDC GLUCOMTR MCNC 121mg/dL Normal [id number] 70 - 199 [facility] GLUCOSE BLDC GLUCOMTR MCNC 91mg/dL Normal [id number] 70 - 199 [facility] GLUCOSE BLDC GLUCOMTR MCNC 103mg/dL Normal [id number] 70 - 199 [facility] HGB BLD MCNC 7.4g/dL Below low normal [id number] 13.5 - 18 [facility] HCT VFR BLD AUTO 22.2% Below low normal [id number] 40 - 54 [facility] GLUCOSE BLDC GLUCOMTR MCNC 105mg/dL Normal [id number] 70 - 199 [facility] PT TIME PPP 14.7sec Above high normal [id number] 10.5 - 13.3 [facility] INR PPP 1.2 Above high normal [id number] 0.8 - 1.1 [facility] APTT TIME PPP 30sec Normal [id number] 25 - 37 [facility] MAGNESIUM SERPL MCNC 2.1mg/dL Normal [id number] 1.7 - 2.8 [facility] CREAT SERPL MCNC 0.7mg/dL Normal [id number] 0.7 - 1.3 [facility] SODIUM SERPL SCNC 139mmol/L Normal [id number] 135 - 145 [facility] GLUCOSE SERPL MCNC 105mg/dL Normal [id number] 70 - 199 [facility] Glomerular filtration rate/1.73 sq M. predicted 93 Normal [id number] 60 - [facility] CHLORIDE SERPL SCNC 106mmol/L Normal [id number] 98 - 107 [facility] HCO3 SER SCNC 26mmol/L Normal [id number] 24 - 32 [facility] POTASSIUM SERPL SCNC 3.7mmol/L Normal [id number] 3.5 - 5.1 [facility] ANION GAP SERPL SCNC 7mmol/L Normal [id number] 5 - 14 [facility] BUN SERPL MCNC 17mg/dL Normal [id number] 9 - 20 [facility] CALCIUM SERPL MCNC 8.2mg/dL Below low normal [id number] 8 .4 - 10.2 [facility] PHOSPHATE SERPL MCNC 1.8mg/dL Below low normal [id number] 2.5 - 4.5 [facility] RBC NO. BLD AUTO 2.31M/uL Below low normal [id number] 4.7 - 6 [facility] MCH RBC QN AUTO 31.1pg Normal [id number] 25 - 33 [facility] MCHC RBC AUTO MCNC 33.3g/dL Normal [id number] 32 - 36 [facility] HGB BLD MCNC 7.2g/dL Below low normal [id number] 13.5 - 18 [facility] WBC NO. BLD AUTO 8.1K/uL Normal [id number] 4 - 10.5 [facility] HCT VFR BLD AUTO 21.6% Below low normal [id number] 40 - 54 [facility] MCV RBC AUTO 93.5fL Normal [id number] 78 - 100 [facility] RDW RBC AUTO RTO 16.2% Normal [id number] 12.1 - 17. 7 [facility] PLATELET NO. BLD AUTO 132K/uL Below low normal [id number] 150 - 450 [facility] PMV BLD AUTO 8.4fL Normal [id number] 7.4 - 11.4 [facility] CA I SERPL SCNC 1.07mmol/L Below low normal [id number] 1.1 9 - 1.35 [facility] GLUCOSE BLDC GLUCOMTR MCNC 121mg/dL Normal [id number] 70 - 199 [facility] GLUCOSE BLDC GLUCOMTR MCNC 109mg/dL Normal [id number] 70 - 199 [facility] BLOOD GAS SITE ARTERIAL Normal [id number] [facility] HCO3 BLDA SCNC 23.8mmol/L Normal [id number] 22 - 26 [facility] CORRECTED TEMP 100.4F Normal [id number] [facility] PO2 BLDA 119mmHg Above high normal [id number] 80 - 105 [facility] pCO2 temp adj Bld 39.1mmHg Normal [id number] 35 - 45 [facility] PCO2 BLDA 37.4mmHg Normal [id number] 35 - 45 [facility] O2/INSPIRED GAS SETTING VFR VENT 28% Normal [id number] [facility] PH BLDA 7.412 Normal [id number] 7.35 - 7.45 [facility] EMPERATRIZ BASE DEFICIT BLDA SCNC 1mmol/L Normal [id number] 0 - 2 [facility] PH TEMP ADJ BLDA 7.398 Normal [id number] 7.35 - 7.4 5 [facility] SAO2% BLDA 99% Above high normal [id number] 95 - 98 [facility] pO2 temp adj Bld 125mmHg Above high normal [id number] 80 - 105 [facility] GLUCOSE BLDC GLUCOMTR MCNC 110mg/dL Normal [id number] 70 - 199 [facility] GLUCOSE BLDC GLUCOMTR MCNC 115mg/dL Normal [id number] 70 - 199 [facility] GLUCOSE BLDC GLUCOMTR MCNC 120mg/dL Normal [id number] 70 - 199 [facility] MARISEL RISK SCORE 0.09 Normal [id number] - 0.31 [facility] CREAT SERPL MCNC 0.8mg/dL Normal [id number] 0.7 - 1.3 [facility] SODIUM SERPL SCNC 140mmol/L Normal 135 - 145 [facility] GLUCOSE P FAST SERPL MCNC 129mg/dL Above high normal 70 - 99 [facility] Glomerular filtration rate/1.73 sq M. predicted 89 Normal 60 - [facility] CHLORIDE SERPL SCNC 108mmol/L Above high normal 98 - 107 [facility] HCO3 SER SCNC 26mmol/L Normal 24 - 32 [facility] POTASSIUM SERPL SCNC 3.6mmol/L Normal 3.5 - 5.1 [facility] ANION GAP SERPL SCNC 6mmol/L Normal 5 - 14 [facility] BUN SERPL MCNC 15mg/dL Normal 9 - 20 [facility] CALCIUM SERPL MCNC 7.9mg/dL Below low normal 8 .4 - 10.2 [facility] PT TIME PPP 14.5sec Above high normal 10.5 - 13.3 [facility] INR PPP 1.2 Above high normal 0.8 - 1.1 [facility] APTT TIME PPP 28sec Normal 25 - 37 [facility] PHOSPHATE SERPL MCNC 2.4mg/dL Below low normal 2.5 - 4.5 [facility] MAGNESIUM SERPL MCNC 2.1mg/dL Normal 1.7 - 2.8 [facility] DIFFERENTIAL TYPE AUTOMATED Normal [facility] NEUTROPHILS NFR BLD AUTO 86.3% Above high normal 44 - 74 [facility] BASOPHILS NFR BLD AUTO 0.4% Normal 0 - 2 [facility] MONOCYTES NFR BLD AUTO 9% Normal 2 - 12 [facility] HCT VFR BLD AUTO 24.7% Below low normal 40 - 54 [facility] MONOCYTES NO. BLD AUTO 0.7K/uL Normal 0 - 0.8 [facility] RDW RBC AUTO RTO 15.5% Normal 12.1 - 17. 7 [facility] PLATELET NO. BLD AUTO 125K/uL Below low normal [id number] 150 - 450 [facility] EOSINOPHIL NO. BLD AUTO 0K/uL Normal 0 - 0.5 [facility] RBC NO. BLD AUTO 2.67M/uL Below low normal 4.7 - 6 [facility] MCH RBC QN AUTO 30.9pg Normal [id number] 25 - 33 [facility] MCHC RBC AUTO MCNC 33.4g/dL Normal 32 - 36 [facility] HGB BLD MCNC 8.3g/dL Below low normal 13.5 - 18 [facility] BASOPHILS IN BLOOD BY AUTOMATED COUNT 0K/uL Normal 0 - 0.2 [facility] WBC NO. BLD AUTO 7.6K/uL Normal 4 - 10.5 [facility] EOSINOPHIL NFR BLD AUTO 0.1% Normal 0 - 6 [facility] LYMPHOCYTES NFR BLD AUTO 4.2% Below low normal 20 - 48 [facility] MCV RBC AUTO 92.5fL Normal 78 - 100 [facility] NEUTROPHILS NO. BLD AUTO 6.6K/uL Normal 1.8 - 7.8 [facility] LYMPHOCYTES NO. BLD AUTO 0.3K/uL Below low normal 1 - 3.2 [facility] PMV BLD AUTO 8.1fL Normal 7.4 - 11.4 [facility] O2/INSPIRED GAS SETTING VFR VENT FIO2 not recorded Normal [facility] BASE DEFICIT BLDMV SCNC 1mmol/L Normal [facility] HCO3 BLDMV SCNC 23.7mmol/L Normal [facility] PH BLDMV 7.32 Below low normal 7.35 - 7.4 5 [facility] PCO2 BLDMV 50mmHg Normal [facility] PO2 BLDMV 45mmHg Normal [id number] [facility] SAO2% BLDMV 78.1% Normal [facility] EMPERATRIZ O2/INSPIRED GAS SETTING VFR VENT FIO2 not recorded Normal [id number] [facility] HCO3 BLDA SCNC 25.4mmol/L Normal [id number] 22 - 26 [facility] PO2 BLDA 135mmHg Above high normal [id number] 80 - 105 [facility] BASE EXCESS BLDA SCNC 0.5mmol/L Normal [id number] 0 - 2 [facility] PCO2 BLDA 50mmHg Above high normal [id number] 35 - 45 [facility] PH BLDA 7.34 Below low normal [id number] 7.35 - 7.4 5 [facility] SAO2% BLDA 100% Above high normal [id number] 95 - 98 [facility] CA I SERPL SCNC 1.17mmol/L Below low normal [id number] 1.1 9 - 1.35 [facility] BLOOD GAS SITE MIXED VENOUS Normal [id number] [facility] SPECIMEN TYPE ARTERIAL Normal [id number] [facility] GLUCOSE BLDC GLUCOMTR MCNC 99mg/dL Normal [id number] 70 - 199 [facility] GLUCOSE BLDC GLUCOMTR MCNC 138mg/dL Normal [id number] 70 - 199 [facility] GLUCOSE BLDC GLUCOMTR MCNC 141mg/dL Normal [id number] 70 - 199 [facility] BLOOD GAS SITE ARTERIAL Normal [id number] [facility] HCO3 BLDA SCNC 22.2mmol/L Normal [id number] 22 - 26 [facility] CORRECTED TEMP 99.6F Normal [id number] [facility] pCO2 temp adj Bld 41.7mmHg Normal [id number] 35 - 45 [facility] BASE DEFICIT BLDA SCNC 3mmol/L Above high normal [id number] 0 - 2 [facility] PH TEMP ADJ BLDA 7.337 Below low normal [id number] 7.3 5 - 7.45 [facility] SAO2% BLDA 95% Normal [id number] 95 - 98 [facility] pO2 temp adj Bld 83mmHg Normal [id number] 80 - 105 [facility] GLUCOSE BLDC GLUCOMTR MCNC 141mg/dL Normal [id number] 70 - 199 [facility] GLUCOSE BLDC GLUCOMTR MCNC 129mg/dL Normal [id number] 70 - 199 [facility] POTASSIUM SERPL SCNC 4mmol/L Normal [id number] 3.5 - 5.1 [facility] GLUCOSE SERPL MCNC 129mg/dL Normal [id number] 70 - 199 [facility] HGB BLD MCNC 8.6g/dL Below low normal [id number] 13.5 - 18 [facility] HCT VFR BLD AUTO 24.8% Below low normal [id number] 40 - 54 [facility] HCO3 BLDA SCNC 22.2mmol/L Normal [id number] 22 - 26 [facility] PO2 BLDA 123mmHg Above high normal [id number] 80 - 105 [facility] PCO2 BLDA 41mmHg Normal [id number] 35 - 45 [facility] O2/INSPIRED GAS SETTING VFR VENT 40% Normal [id number] [facility] PH BLDA 7.34 Below low normal [id number] 7.35 - 7.4 5 [facility] BASE DEFICIT BLDA SCNC 3.5mmol/L Above high normal [id number] 0 - 2 [facility] SAO2% BLDA 99.6% Above high normal [id number] 95 - 98 [facility] GLUCOSE BLDC GLUCOMTR MCNC 88mg/dL Normal [id number] 70 - 199 [facility] SPECIMEN TYPE ARTERIAL Normal [id number] [facility] BLOOD GAS SITE ARTERIAL Normal [id number] [facility] HCO3 BLDA SCNC 23.6mmol/L Normal [id number] 22 - 26 [facility] CORRECTED TEMP 99.2F [id number] [facility] PO2 BLDA 108mmHg Above high normal [id number] 80 - 105 [facility] pCO2 temp adj Bld 42mmHg Normal 752410392615 35 - 45 [facility] PCO2 BLDA 41.4mmHg Normal [id number] 35 - 45 [facility] O2/INSPIRED GAS SETTING VFR VENT 40% Normal [id number] [facility] PH BLDA 7.363 Normal [id number] 7.35 - 7.45 [facility] EMPERATRIZ BASE DEFICIT BLDA SCNC 2mmol/L Normal [id number] 0 - 2 [facility] PH TEMP ADJ BLDA 7.358 Normal [id number] 7.35 - 7.4 5 [facility] SAO2% BLDA 98% Normal [id number] 95 - 98 [facility] pO2 temp adj Bld 110mmHg Above high normal [id number] 80 - 105 [facility] BLOOD GAS SITE ARTERIAL Normal [id number] [facility] HCO3 BLDA SCNC 21.5mmol/L Below low normal [id number] 22 - 26 [facility] CORRECTED TEMP 97.3F [id number] [facility] PO2 BLDA 90mmHg Normal [id number] 80 - 105 [facility] pCO2 temp adj Bld 42.9mmHg Normal [id number] 35 - 45 [facility] PCO2 BLDA 44.3mmHg Normal [id number] 35 - 45 [facility] O2/INSPIRED GAS SETTING VFR VENT 50% Normal [id number] [facility] PH BLDA 7.293 Below low normal 833190455026 7.35 - 7.4 5 [facility] BASE DEFICIT BLDA SCNC 5mmol/L Above high normal [id number] 0 - 2 [facility] PH TEMP ADJ BLDA 7.303 Below low normal [id number] 7.3 5 - 7.45 [facility] SAO2% BLDA 96% Normal [id number] 95 - 98 [facility] pO2 temp adj Bld 86mmHg Normal [id number] 80 - 105 [facility] BLOOD GAS SITE ARTERIAL Normal [id number] [facility] HCO3 BLDA SCNC 23.5mmol/L Normal [id number] 22 - 26 C [facility] CORRECTED TEMP 98.5F Normal [id number] [facility] PO2 BLDA 120mmHg Above high normal 572959006702 80 - 105 [facility] pCO2 temp adj Bld 48.3mmHg Above high normal 962845124403 3 5 - 45 [facility] PCO2 BLDA 48.5mmHg Above high normal [id number] 35 - 45 [facility] O2/INSPIRED GAS SETTING VFR VENT 40% Normal [id number] [facility] PH BLDA 7.293 Below low normal [id number] 7.35 - 7.4 5 [facility] BASE DEFICIT BLDA SCNC 3mmol/L Above high normal [id number] 0 - 2 [facility] PH TEMP ADJ BLDA 7.294 Below low normal 133988351942 7.3 5 - 7.45 [facility] SAO2% BLDA 98% Normal [id number] 95 - 98 [facility] pO2 temp adj Bld 120mmHg Above high normal [id number] 80 - 105 [facility] BLOOD GAS SITE ARTERIAL Normal [id number] CT [facility] HCO3 BLDA SCNC 20mmol/L Below low normal [id number] 22 - 26 [facility] CORRECTED TEMP 97.2F Normal [id number] CT [facility] PO2 BLDA 136mmHg Above high normal [id number] 80 - 105 [facility] pCO2 temp adj Bld 34.8mmHg Below low normal [id number] 35 - 45 [facility] PCO2 BLDA 36mmHg Normal [id number] 35 - 45 [facility] AN O2/INSPIRED GAS SETTING VFR VENT 100% Normal [id number] [facility] PH BLDA 7.352 Normal [id number] 7.35 - 7.45 [facility] EMPERATRIZ BASE DEFICIT BLDA SCNC 6mmol/L Above high normal [id number] 0 - 2 [facility] PH TEMP ADJ BLDA 7.363 Normal [id number] 7.35 - 7.4 5 [facility] SAO2% BLDA 99% Above high normal [id number] 95 - 98 [facility] pO2 temp adj Bld 131mmHg Above high normal [id number] 80 - 105 [facility] GLUCOSE BLDC GLUCOMTR MCNC 92mg/dL Normal [id number] 70 - 199 [facility] GLUCOSE BLDC GLUCOMTR MCNC 123mg/dL Normal [id number] 70 - 199 [facility] POTASSIUM SERPL SCNC 4.2mmol/L Normal [id number] 3.5 - 5.1 [facility] GLUCOSE SERPL MCNC 126mg/dL Normal [id number] 70 - 199 [facility] O2/INSPIRED GAS SETTING VFR VENT FIO2 not recorded Normal [id number] [facility] HCO3 BLDA SCNC 23.4mmol/L Normal [id number] 22 - 26 C [facility] PO2 BLDA 131mmHg Above high normal [id number] 80 - 105 [facility] PCO2 BLDA 51mmHg Above high normal [id number] 35 - 45 [facility] PH BLDA 7.3 Below low normal [id number] 7.35 - 7.4 5 [facility] BASE DEFICIT BLDA SCNC 2mmol/L Normal [id number] 0 - 2 [facility] SAO2% BLDA 100% Above high normal [id number] 95 - 98 [facility] HGB BLD MCNC 9.6g/dL Below low normal [id number] 13.5 - 18 [facility] HCT VFR BLD AUTO 29.1% Below low normal [id number] 40 - 54 [facility] APTT TIME PPP 37sec Normal [id number] 25 - 37 CTT HS[facility]AN PT TIME PPP 14.5sec Above high normal [id number] 10.5 - 13.3 [facility] INR PPP 1.2 Above high normal [id number] 0.8 - 1.1 [facility] SPECIMEN TYPE ARTERIAL Normal [id number] CTT HSFRAN GLUCOSE BLDC GLUCOMTR MCNC 130mg/dL Normal [id number] 70 - 199 [facility] HCO3 BLDA SCNC 24.5mmol/L Normal [id number] 22 - 26 C [facility] PO2 BLDA 113mmHg Above high normal [id number] 80 - 105 [facility] PCO2 BLDA 46mmHg Above high normal [id number] 35 - 45 [facility] PH BLDA 7.35 Normal [id number] 7.35 - 7.45 [facility] EMPERATRIZ BASE DEFICIT BLDA SCNC 0.6mmol/L Normal [id number] 0 - 2 [facility] SAO2% BLDA 99.3% Above high normal [id number] 95 - 98 [facility] SPECIMEN TYPE ARTERIAL Normal [id number] CTT [facility] CREAT SERPL MCNC 0.9mg/dL Normal [id number] 0.7 - 1.3 [facility] SODIUM SERPL SCNC 142mmol/L Normal [id number] 135 - 145 [facility] GLUCOSE P FAST SERPL MCNC 128mg/dL Above high normal [id number] 70 - 99 [facility] Glomerular filtration rate/1.73 sq M. predicted 86 Normal [id number] 60 - [facility] CHLORIDE SERPL SCNC 114mmol/L Above high normal [id number] 98 - 107 [facility] HCO3 SER SCNC 21mmol/L Below low normal [id number] 24 - 3 2 [facility] POTASSIUM SERPL SCNC 4.4mmol/L Normal [id number] 3.5 - 5.1 [facility] ANION GAP SERPL SCNC 7mmol/L Normal [id number] 5 - 14 [facility] BUN SERPL MCNC 24mg/dL Above high normal [id number] 9 - 20 [facility] CALCIUM SERPL MCNC 8.1mg/dL Below low normal [id number] 8 .4 - 10.2 [facility] PHOSPHATE SERPL MCNC 2.8mg/dL Normal [id number] 2.5 - 4.5 [facility] PT TIME PPP 14.8sec Above high normal [id number] 10.5 - 13.3 [facility] INR PPP 1.2 Above high normal [id number] 0.8 - 1.1 [facility] APTT TIME PPP 32sec Normal [id number] 25 - 37 CTT [facility] GLUCOSE BLDC GLUCOMTR MCNC 123mg/dL Normal [id number] 70 - 199 [facility] DIFFERENTIAL TYPE AUTOMATED Normal [id number] [facility] NEUTROPHILS NFR BLD AUTO 88.1% Above high normal [id number] 44 - 74 [facility] BASOPHILS NFR BLD AUTO 0.4% Normal [id number] 0 - 2 [facility] MONOCYTES NFR BLD AUTO 6.5% Normal [id number] 2 - 12 [facility] HCT VFR BLD AUTO 31.9% Below low normal [id number] 40 - 54 [facility] MONOCYTES NO. BLD AUTO 0.9K/uL Above high normal 470457159090 0 - 0.8 [facility] RDW RBC AUTO RTO 14.5% Normal [id number] 12.1 - 17. 7 [facility] PLATELET NO. BLD AUTO 134K/uL Below low normal [id number] 150 - 450 [facility] EOSINOPHIL NO. BLD AUTO 0.1K/uL Normal [id number] 0 - 0.5 [facility] RBC NO. BLD AUTO 3.45M/uL Below low normal [id number] 4.7 - 6 [facility] MCH RBC QN AUTO 31.3pg Normal [id number] 25 - 33 [facility] MCHC RBC AUTO MCNC 33.8g/dL Normal [id number] 32 - 36 [facility] HGB BLD MCNC 10.8g/dL Below low normal [id number] 13.5 - 18 [facility] BASOPHILS IN BLOOD BY AUTOMATED COUNT 0.1K/uL Normal [id number] 0 - 0.2 [facility] WBC NO. BLD AUTO 13.8K/uL Above high normal [id number] 4 - 10.5 [facility] EOSINOPHIL NFR BLD AUTO 1% Normal [id number] 0 - 6 [facility] LYMPHOCYTES NFR BLD AUTO 4% Below low normal [id number] 20 - 48 [facility] MCV RBC AUTO 92.4fL Normal [id number] 78 - 100 [facility] NEUTROPHILS NO. BLD AUTO 12.1K/uL Above high normal [id number] 1.8 - 7.8 [facility] LYMPHOCYTES NO. BLD AUTO 0.5K/uL Below low normal [id number] 1 - 3.2 [facility] PMV BLD AUTO 8fL Normal [id number] 7.4 - 11.4 [facility] GLUCOSE BLDC GLUCOMTR MCNC 126mg/dL Normal [id number] 70 - 199 [facility] CA I SERPL SCNC 1.24mmol/L Normal [id number] 1.19 - 1.3 5 [facility] HCO3 BLDA SCNC 20.8mmol/L Below low normal [id number] 22 - 26 [facility] PO2 BLDA 157mmHg Above high normal 554033598621 80 - 105 [facility] PCO2 BLDA 38mmHg Normal [id number] 35 - 45 [facility] O2/INSPIRED GAS SETTING VFR VENT 100% Normal [id number] [facility] PH BLDA 7.33 Below low normal [id number] 7.35 - 7.4 5 [facility] BASE DEFICIT BLDA SCNC 5.4mmol/L Above high normal [id number] 0 - 2 [facility] SAO2% BLDA 100% Above high normal [id number] 95 - 98 [facility] BASE DEFICIT BLDMV SCNC 5mmol/L Normal [id number] [facility] HCO3 BLDMV SCNC 20.3mmol/L Normal [id number] [facility] PH BLDMV 7.25 Below low normal [id number] 7.35 - 7.4 5 [facility] PCO2 BLDMV 53mmHg Normal [id number] [facility]AN PO2 BLDMV 37mmHg Normal [id number] [facility] O2/INSPIRED GAS SETTING VFR VENT 100% Normal [id number] [facility] SAO2% BLDMV 62.7% Normal [id number] [facility] EMPERATRIZ SPECIMEN TYPE ARTERIAL Normal [id number] [facility] BLOOD GAS SITE MIXED VENOUS Normal [id number] [facility] BLOOD GAS SITE ARTERIAL Normal [id number] [facility] XXX-Imp ISTAT Normal [id number] [facility] pCO2 temp adj Bld 41.8mmHg Normal [id number] 35 - 45 [facility] O2/INSPIRED GAS SETTING VFR VENT 75% Normal [id number] [facility] SODIUM BLDC SCNC 142mmol/L Normal [id number] 135 - 145 [facility] BASE DEFICIT BLDA SCNC 2mmol/L Normal [id number] 0 - 2 [facility] PH TEMP ADJ BLDA 7.351 Normal [id number] 7.35 - 7.4 5 [facility] SAO2% BLDA 100% Above high normal [id number] 95 - 98 [facility] POTASSIUM BLDC SCNC 4.4mmol/L Normal [id number] 3.5 - 5.1 [facility] HGB BLDC MCNC 8.5g/dL Below low normal [id number] 13.5 - 18 [facility] HCO3 BLDA SCNC 23.2mmol/L Normal [id number] 22 - 26 [facility] CORRECTED TEMP 98.6F Normal [id number] [facility] GLUCOSE BLDC GLUCOMTR MCNC 127mg/dL Normal [id number] 70 - 199 [facility] HCT VFR BLDC 25% Below low normal [id number] 40 - 54 [facility] CA I BLDC SCNC 1.16mmol/L Below low normal [id number] 1.19 - 1.35 [facility] pO2 temp adj Bld 323mmHg Above high normal [id number] 80 - 105 [facility] BLOOD GAS SITE ARTERIAL Normal [id number] [facility] XXX-Imp ISTAT Normal [id number] [facility] pCO2 temp adj Bld 40.3mmHg Normal [id number] 35 - 45 [facility] O2/INSPIRED GAS SETTING VFR VENT 75% Normal [id number] [facility] SODIUM BLDC SCNC 142mmol/L Normal [id number] 135 - 145 [facility] BASE DEFICIT BLDA SCNC 2mmol/L Normal [id number] 0 - 2 [facility] PH TEMP ADJ BLDA 7.366 Normal [id number] 7.35 - 7.4 5 [facility] SAO2% BLDA 100% Above high normal [id number] 95 - 98 [facility] POTASSIUM BLDC SCNC 4mmol/L Normal [id number] 3.5 - 5.1 [facility] HGB BLDC MCNC 9.2g/dL Below low normal [id number] 13.5 - 18 [facility] HCO3 BLDA SCNC 23.1mmol/L Normal [id number] 22 - 26 [facility] CORRECTED TEMP 98.6F Normal [id number] [facility] GLUCOSE BLDC GLUCOMTR MCNC 125mg/dL Normal [id number] 70 - 199 [facility] HCT VFR BLDC 27% Below low normal [id number] 40 - 54 [facility] CA I BLDC SCNC 1.17mmol/L Below low normal [id number] 1.19 - 1.35 [facility] pO2 temp adj Bld 322mmHg Above high normal [id number] 80 - 105 [facility] BLOOD GAS SITE ARTERIAL Normal [id number] [facility] XXX-Imp ISTAT Normal [id number] [facility] pCO2 temp adj Bld 42mmHg Normal [id number] 35 - 45 [facility] O2/INSPIRED GAS SETTING VFR VENT 75% Normal [id number] [facility] SODIUM BLDC SCNC 142mmol/L Normal [id number] 135 - 145 [facility] BASE DEFICIT BLDA SCNC 2mmol/L Normal [id number] 0 - 2 [facility] PH TEMP ADJ BLDA 7.351 Normal [id number] 7.35 - 7.4 5 [facility] SAO2% BLDA 100% Above high normal [id number] 95 - 98 [facility] POTASSIUM BLDC SCNC 4.1mmol/L Normal [id number] 3.5 - 5.1 [facility] HGB BLDC MCNC 8.8g/dL Below low normal [id number] 13.5 - 18 [facility] HCO3 BLDA SCNC 23.6mmol/L Normal [id number] 22 - 26 [facility] CORRECTED TEMP 96.3F Normal [id number] [facility] GLUCOSE BLDC GLUCOMTR MCNC 108mg/dL Normal [id number] 70 - 199 [facility] HCT VFR BLDC 26% Below low normal [id number] 40 - 54 [facility] CA I BLDC SCNC 1.18mmol/L Below low normal [id number] 1.19 - 1.35 [facility] pO2 temp adj Bld 325mmHg Above high normal 877925700603 80 - 105 [facility] BLOOD GAS SITE ARTERIAL Normal [id number] [facility] XXX-Imp ISTAT Normal [id number] [facility] pCO2 temp adj Bld 39.3mmHg Normal [id number] 35 - 45 [facility] O2/INSPIRED GAS SETTING VFR VENT 75% Normal [id number] [facility] SODIUM BLDC SCNC 142mmol/L Normal [id number] 135 - 145 [facility] BASE DEFICIT BLDA SCNC 3mmol/L Above high normal [id number] 0 - 2 [facility] PH TEMP ADJ BLDA 7.36 Normal [id number] 7.35 - 7.4 5 [facility] SAO2% BLDA 100% Above high normal [id number] 95 - 98 [facility] POTASSIUM BLDC SCNC 4.8mmol/L Normal [id number] 3.5 - 5.1 [facility] HGB BLDC MCNC 8.2g/dL Below low normal [id number] 13.5 - 18 [facility] HCO3 BLDA SCNC 22.2mmol/L Normal [id number] 22 - 26 [facility] CORRECTED TEMP 98.6F Normal [id number] [facility] GLUCOSE BLDC GLUCOMTR MCNC 127mg/dL Normal [id number] 70 - 199 [facility] HCT VFR BLDC 24% Below low normal [id number] 40 - 54 [facility] CA I BLDC SCNC 1.14mmol/L Below low normal [id number] 1.19 - 1.35 [facility] pO2 temp adj Bld 339mmHg Above high normal [id number] 80 - 105 [facility] BLOOD GAS SITE ARTERIAL Normal [id number] [facility] XXX-Imp ISTAT Normal [id number] [facility] pCO2 temp adj Bld 34.9mmHg Below low normal [id number] 35 - 45 [facility] O2/INSPIRED GAS SETTING VFR VENT 60% Normal [id number] [facility] SODIUM BLDC SCNC 143mmol/L Normal [id number] 135 - 145 [facility] BASE DEFICIT BLDA SCNC 6mmol/L Above high normal [id number] 0 - 2 [facility] PH TEMP ADJ BLDA 7.361 Normal [id number] 7.35 - 7.4 5 [facility] SAO2% BLDA 99% Above high normal [id number] 95 - 98 [facility] POTASSIUM BLDC SCNC 4mmol/L Normal [id number] 3.5 - 5.1 [facility] HGB BLDC MCNC 9.2g/dL Below low normal [id number] 13.5 - 18 [facility] HCO3 BLDA SCNC 19.7mmol/L Below low normal [id number] 22 - 26 [facility] CORRECTED TEMP 98.6F Normal [id number] [facility] GLUCOSE BLDC GLUCOMTR MCNC 160mg/dL Normal [id number] 70 - 199 [facility] HCT VFR BLDC 27% Below low normal [id number] 40 - 54 [facility] CA I BLDC SCNC 1.4mmol/L Above high normal [id number] 1.19 - 1.35 [facility] pO2 temp adj Bld 130mmHg Above high normal [id number] 80 - 105 [facility] BLOOD GAS SITE ARTERIAL Normal [id number] [facility] XXX-Imp ISTAT Normal [id number] [facility] pCO2 temp adj Bld 37.2mmHg Normal [id number] 35 - 45 [facility] O2/INSPIRED GAS SETTING VFR VENT 60% Normal [id number] [facility] SODIUM BLDC SCNC 142mmol/L Normal [id number] 135 - 145 [facility] PH TEMP ADJ BLDA 7.42 Normal [id number] 7.35 - 7.4 5 [facility] SAO2% BLDA 99% Above high normal [id number] 95 - 98 [facility] POTASSIUM BLDC SCNC 3.4mmol/L Below low normal [id number] 3.5 - 5.1 [facility] HGB BLDC MCNC 10.9g/dL Below low normal [id number] 13.5 - 18 [facility] HCO3 BLDA SCNC 24.1mmol/L Normal [id number] 22 - 26 C [facility] CORRECTED TEMP 98.6F Normal [id number] [facility] GLUCOSE BLDC GLUCOMTR MCNC 99mg/dL Normal [id number] 70 - 199 [facility] BASE EXCESS BLDA SCNC 0mmol/L Normal [id number] 0 - 2 [facility] HCT VFR BLDC 32% Below low normal [id number] 40 - 54 [facility] CA I BLDC SCNC 1.25mmol/L Normal [id number] 1.19 - 1.35 [facility] pO2 temp adj Bld 161mmHg Above high normal [id number] 80 - 105 [facility] BLOOD GAS SITE ARTERIAL Normal [id number] [facility] XXX-Imp ISTAT Normal [id number] [facility] pCO2 temp adj Bld 36.9mmHg Normal [id number] 35 - 45 [facility] O2/INSPIRED GAS SETTING VFR VENT 70% Normal [id number] [facility] SODIUM BLDC SCNC 143mmol/L Normal [id number] 135 - 145 [facility] BASE DEFICIT BLDA SCNC 3mmol/L Above high normal [id number] 0 - 2 [facility] PH TEMP ADJ BLDA 7.377 Normal [id number] 7.35 - 7.4 5 [facility] SAO2% BLDA 100% Above high normal [id number] 95 - 98 [facility] POTASSIUM BLDC SCNC 4.1mmol/L Normal [id number] 3.5 - 5.1 [facility] HGB BLDC MCNC 8.5g/dL Below low normal [id number] 13.5 - 18 [facility] HCO3 BLDA SCNC 22mmol/L Normal [id number] 22 - 26 [facility] CORRECTED TEMP 96.1F Normal [id number] [facility] GLUCOSE BLDC GLUCOMTR MCNC 97mg/dL Normal [id number] 70 - 199 [facility] HCT VFR BLDC 25% Below low normal [id number] 40 - 54 [facility] CA I BLDC SCNC 1.17mmol/L Below low normal [id number] 1.19 - 1.35 [facility] pO2 temp adj Bld 278mmHg Above high normal [id number] 80 - 105 [facility] BLOOD GAS SITE ARTERIAL Normal [id number] [facility] XXX-Imp ISTAT Normal [id number] [facility] pCO2 temp adj Bld 44.5mmHg Normal [id number] 35 - 45 [facility] O2/INSPIRED GAS SETTING VFR VENT 75% Normal [id number] [facility] SODIUM BLDC SCNC 142mmol/L Normal [id number] 135 - 145 [facility] BASE DEFICIT BLDA SCNC 1mmol/L Normal [id number] 0 - 2 [facility] PH TEMP ADJ BLDA 7.344 Below low normal [id number] 7.3 5 - 7.45 [facility] SAO2% BLDA 100% Above high normal [id number] 95 - 98 [facility] POTASSIUM BLDC SCNC 3.9mmol/L Normal [id number] 3.5 - 5.1 [facility] HGB BLDC MCNC 8.8g/dL Below low normal [id number] 13.5 - 18 [facility] HCO3 BLDA SCNC 24.5mmol/L Normal [id number] 22 - 26 C [facility] CORRECTED TEMP 96.4F Normal [id number] [facility] GLUCOSE BLDC GLUCOMTR MCNC 119mg/dL Normal [id number] 70 - 199 [facility] HCT VFR BLDC 26% Below low normal [id number] 40 - 54 [facility] CA I BLDC SCNC 1.18mmol/L Below low normal [id number] 1.19 - 1.35 [facility] pO2 temp adj Bld 333mmHg Above high normal [id number] 80 - 105 [facility] BLOOD GAS SITE ARTERIAL Normal [id number] [facility] Service [facility] XXX-Imp ISTAT Normal [id number] [facility] pCO2 temp adj Bld 34.1mmHg Below low normal [id number] 35 - 45 [facility] O2/INSPIRED GAS SETTING VFR VENT 60% Normal [id number] [facility] SODIUM BLDC SCNC 145mmol/L Normal [id number] 135 - 145 [facility] BASE DEFICIT BLDA SCNC 5mmol/L Above high normal [id number] 0 - 2 [facility] PH TEMP ADJ BLDA 7.38 Normal [id number] 7.35 - 7.4 5 [facility] SAO2% BLDA 100% Above high normal [id number] 95 - 98 [facility] POTASSIUM BLDC SCNC 3mmol/L Below low normal [id number] 3.5 - 5.1 [facility] HGB BLDC MCNC 11.2g/dL Below low normal [id number] 13.5 - 18 [facility] HCO3 BLDA SCNC 20.2mmol/L Below low normal [id number] 22 - 26 [facility] CORRECTED TEMP 98.6F Normal [id number] [facility] GLUCOSE BLDC GLUCOMTR MCNC 88mg/dL Normal [id number] 70 - 199 [facility] HCT VFR BLDC 33% Below low normal [id number] 40 - 54 [facility] CA I BLDC SCNC 1.21mmol/L Normal [id number] 1.19 - 1.35 [facility] pO2 temp adj Bld 244mmHg Above high normal 495165503076 80 - 105 [facility] FIBRINOGEN PPP-MCNC 221mg/dL Normal [id number] 145 - 415 [facility] PLATELET NO. BLD AUTO 184K/uL Normal [id number] 150 - 450 [facility] BLOOD BANK [facility] PATIENT-IMP Normal [id number] [facility] ABO+RH GP BLD Normal [id number] [facility]TT [facility] BLD GP AB SCN SERPL QL Normal [id number] [facility] POTASSIUM SERPL SCNC 3.6mmol/L Normal [id number] 3.5 - 5.1 [facility] TRANS NUM UNITS PACKED RBC Normal [id number] [facility] PT TIME PPP 11.7sec Normal [id number] 10.5 - 13.3 [facility] INR PPP 1 Normal [id number] 0.8 - 1.1 [facility] AN APTT TIME PPP 33sec Normal [id number] 25 - 37 [facility] GLUCOSE BLDC GLUCOMTR MCNC 80mg/dL Normal [id number] 70 - 199 [facility] Hgb A1c MFr Bld HPLC 4.6% Normal [id number] - 5.7 [facility] BLOOD [facility] PATIENT-IMP Normal [id number] [facility] ABO+RH GP BLD Normal [id number] CTT [facility] BLD GP AB SCN SERPL QL Normal [id number] [facility] Glucose Ur Ql Strip.auto NEGATIVE Normal [id number] - [facility] Prot Ur Ql Strip.auto NEGATIVE Normal [id number] - [facility] Nitrite Ur Ql Strip.auto NEGATIVE Normal [id number] - [facility] Hgb Ur Ql Strip.auto NEGATIVE Normal [id number] - [facility] Leukocyte esterase Ur Ql Strip.auto NEGATIVE Normal [id number] - [facility] Clarity Ur Refract.auto CLEAR Normal [id number] [facility] Ketones Ur Ql Strip.auto NEGATIVE Normal [id number] - [facility] Color Ur Auto YELLOW Normal [id number] [facility] pH Ur Strip.auto 6 Normal [id number] 4.5 - 8 [facility] Sp Gr Ur Strip.auto 1.013 Normal [id number] 1.005 - 1.03 [facility] T4 FREE SERPL MCNC 1.4ng/dL Above high normal [id number] 0.5 - 1.3 [facility] TSH SerPl DL<=0.005 mIU/L-aCnc 0.07uIU/mL Below low normal [id number] 0.45 - 5.33 [facility] BNP BLD MCNC 257pg/mL Above high normal [id number] 0 - 10 0 [facility] CREAT SERPL MCNC 0.8mg/dL Normal [id number] 0.7 - 1.3 [facility] SODIUM SERPL SCNC 139mmol/L Normal [id number] 135 - 145 [facility] GLUCOSE SERPL MCNC 78mg/dL Normal [id number] 70 - 199 [facility] Glomerular filtration rate/1.73 sq M. predicted 89 Normal [id number] 60 - [facility] CHLORIDE SERPL SCNC 104mmol/L Normal [id number] 98 - 107 [facility] HCO3 SER SCNC 27mmol/L Normal [id number] 24 - 32 [facility] POTASSIUM SERPL SCNC 3.4mmol/L Below low normal [id number] 3.5 - 5.1 [facility] ANION GAP SERPL SCNC 8mmol/L Normal [id number] 5 - 14 [facility] BUN SERPL MCNC 22mg/dL Above high normal [id number] 9 - 20 [facility] CALCIUM SERPL MCNC 8.7mg/dL Normal [id number] 8.4 - 10 .2 [facility] ALBUMIN/GLOB SERPL MRTO 1.6 Normal [id number] [facility] ALP SERPL-CCNC 102U/L Normal [id number] 34 - 104 [facility] BILIRUB SERPL MCNC 0.4mg/dL Normal [id number] 0.3 - 1 [facility] AST SERPL CCNC 9U/L Normal [id number] 5 - 40 [facility] ALBUMIN SERPL BCG MCNC 4.1g/dL Normal [id number] 3.5 - 5 [facility] ALT SERPL CCNC 5U/L Below low normal [id number] 7 - 5 2 [facility] PROT SERPL MCNC 6.6g/dL Normal [id number] 6.4 - 8.5 C [facility] BILIRUB DIRECT SERPL MCNC 0.1mg/dL Normal [id number] 0 - 0.2 [facility] PREALB SERPL NEPH MCNC 23.3mg/dL Normal [id number] 17 - 34 [facility] PT TIME PPP 11.4sec Normal [id number] 10.5 - 13.3 [facility] INR PPP 1 Normal [id number] 0.8 - 1.1 [facility] APTT TIME PPP 32sec Normal [id number] 25 - 37 [facility] SPECIMEN SOURCE XXX URINE CLEAN CATCH Normal [id number] [facility] DIFFERENTIAL TYPE AUTOMATED Normal [id number] [facility] NEUTROPHILS NFR BLD AUTO 73.7% Normal [id number] 44 - 74 [facility] BASOPHILS NFR BLD AUTO 1% Normal [id number] 0 - 2 [facility] MONOCYTES NFR BLD AUTO 8% Normal [id number] 2 - 12 [facility] HCT VFR BLD AUTO 37.7% Below low normal [id number] 40 - 54 [facility] MONOCYTES NO. BLD AUTO 0.5K/uL Normal [id number] 0 - 0.8 [facility] RDW RBC AUTO RTO 15.3% Normal [id number] 12.1 - 17. 7 [facility] PLATELET NO. BLD AUTO 252K/uL Normal [id number] 150 - 450 [facility] EOSINOPHIL NO. BLD AUTO 0.3K/uL Normal [id number] 0 - 0.5 [facility] RBC NO. BLD AUTO 4.06M/uL Below low normal [id number] 4.7 - 6 [facility] MCH RBC QN AUTO 31.2pg Normal [id number] 25 - 33 C [facility] MCHC RBC AUTO MCNC 33.7g/dL Normal [id number] 32 - 36 [facility] HGB BLD MCNC 12.7g/dL Below low normal [id number] 13.5 - 18 [facility] BASOPHILS IN BLOOD BY AUTOMATED COUNT 0.1K/uL Normal 0 - 0.2 [facility] WBC NO. BLD AUTO 5.8K/uL Normal [id number] 4 - 10.5 [facility] EOSINOPHIL NFR BLD AUTO 4.3% Normal 0 - 6 [facility] LYMPHOCYTES NFR BLD AUTO 13% Below low normal 20 - 48 [facility] MCV RBC AUTO 92.8fL Normal 78 - 100 [facility] NEUTROPHILS NO. BLD AUTO 4.3K/uL Normal 1.8 - 7.8 [facility] LYMPHOCYTES NO. BLD AUTO 0.8K/uL Below low normal 1 - 3.2 [facility] PMV BLD AUTO 7.7fL Normal 7.4 - 11.4 [facility] CREAT SERPL MCNC 1mg/dL Normal 0.7 - 1.3 [facility] SODIUM SERPL SCNC 139mmol/L Normal 135 - 145 [facility] GLUCOSE P FAST SERPL MCNC 99mg/dL Normal 70 - 99 [facility] Glomerular filtration rate/1.73 sq M. predicted 76 Normal 60 - [facility] CHLORIDE SERPL SCNC 106mmol/L Normal 98 - 107 [facility] HCO3 SER SCNC 29mmol/L Normal 24 - 32 [facility] POTASSIUM SERPL SCNC 3.1mmol/L Below low normal [id number] 3.5 - 5.1 [facility] ANION GAP SERPL SCNC 4mmol/L Below low normal 5 - 14 [facility] BUN SERPL MCNC 19mg/dL Normal 9 - 20 [facility] CALCIUM SERPL MCNC 8.7mg/dL Normal 8.4 - 10 .2 [facility] HGB BLD MCNC 12.2g/dL Below low normal 13.5 - 18 [facility] HCT VFR BLD AUTO 36.6% Below low normal [id number] 40 - 54 [facility] BLOOD BANK CMNT PATIENT-IMP Normal [facility] ABO+RH GP BLD Normal [facility] BLOOD BANK NT PATIENT-IMP Normal [facility] ABO+RH GP BLD Normal [facility]TT [facility] BLD GP AB SCN SERPL QL Normal [facility] CREAT SERPL MCNC 1mg/dL Normal [id number] 0.7 - 1.3 [facility] SODIUM SERPL SCNC 142mmol/L Normal [id number] 135 - 145 [facility] GLUCOSE SERPL MCNC 79mg/dL Normal [id number] 70 - 199 [facility] Glomerular filtration rate/1.73 sq M. predicted 76 Normal [id number] 60 - [facility] CHLORIDE SERPL SCNC 106mmol/L Normal [id number] 98 - 107 [facility] HCO3 SER SCNC 28mmol/L Normal 24 - 32 [facility] POTASSIUM SERPL SCNC 3.4mmol/L Below low normal [id number] 3.5 - 5.1 [facility] ANION GAP SERPL SCNC 8mmol/L Normal [id number] 5 - 14 [facility] BUN SERPL MCNC 21mg/dL Above high normal [id number] 9 - 20 [facility] CALCIUM SERPL MCNC 9.5mg/dL Normal [id number] 8.4 - 10 .2 [facility] PREALB SERPL NEPH MCNC 23.2mg/dL Normal [id number] 17 - 34 [facility] CREAT SERPL MCNC 1mg/dL Normal [id number] 0.7 - 1.3 [facility] BILIRUB SERPL MCNC 0.6mg/dL Normal 0.3 - 1 [facility] AST SERPL CCNC 10U/L Normal [id number] 5 - 40 [facility] Glomerular filtration rate/1.73 sq M. predicted 76 Normal [id number] 60 - [facility] HCO3 SER SCNC 26mmol/L Normal 24 - 32 [facility] POTASSIUM SERPL SCNC 3.2mmol/L Below low normal 3.5 - 5.1 [facility] ANION GAP SERPL SCNC 10mmol/L Normal 5 - 14 [facility] PROT SERPL MCNC 6.8g/dL Normal 6.4 - 8.5 [facility] CALCIUM SERPL MCNC 9.5mg/dL Normal 8.4 - 10 .2 [facility] ALP SERPL-CCNC 103U/L Normal 34 - 104 [facility] SODIUM SERPL SCNC 143mmol/L Normal 135 - 145 [facility] GLUCOSE SERPL MCNC 84mg/dL Normal 70 - 199 [facility] ALBUMIN SERPL BCG MCNC 4.1g/dL Normal 3.5 - 5 [facility] CHLORIDE SERPL SCNC 107mmol/L Normal 98 - 107 [facility] ALT SERPL CCNC 11U/L Normal 7 - 52 [facility] BUN SERPL MCNC 19mg/dL Normal 9 - 20 [facility] DIFFERENTIAL TYPE AUTOMATED Normal [facility] NEUTROPHILS NFR BLD AUTO 69.6% Normal 44 - 74 [facility] BASOPHILS NFR BLD AUTO 1.8% Normal 0 - 2 [facility] MONOCYTES NFR BLD AUTO 7.4% Normal 2 - 12 [facility] HCT VFR BLD AUTO 41.5% Normal 40 - 54 [facility] MONOCYTES NO. BLD AUTO 0.4K/uL Normal 0 - 0.8 [facility] RDW RBC AUTO RTO 14.9% Normal 12.1 - 17. 7 [facility] PLATELET NO. BLD AUTO 258K/uL Normal 150 - 450 [facility] EOSINOPHIL NO. BLD AUTO 0.2K/uL Normal 0 - 0.5 [facility] RBC NO. BLD AUTO 4.42M/uL Below low normal 4.7 - 6 [facility] MCH RBC QN AUTO 31.7pg Normal 25 - 33 [facility] MCHC RBC AUTO MCNC 33.8g/dL Normal 32 - 36 [facility] HGB BLD MCNC 14g/dL Normal 13.5 - 18 [facility] BASOPHILS IN BLOOD BY AUTOMATED COUNT 0.1K/uL Normal 0 - 0.2 [facility] WBC NO. BLD AUTO 4.8K/uL Normal 4 - 10.5 [facility] EOSINOPHIL NFR BLD AUTO 4.7% Normal 0 - 6 [facility] LYMPHOCYTES NFR BLD AUTO 16.5% Below low normal 20 - 48 [facility] MCV RBC AUTO 93.8fL Normal 78 - 100 [facility] NEUTROPHILS NO. BLD AUTO 3.3K/uL Normal 1.8 - 7.8 [facility] LYMPHOCYTES NO. BLD AUTO 0.8K/uL Below low normal 1 - 3.2 [facility] PMV BLD AUTO 8.4fL Normal 7.4 - 11.4 [facility] History of Medication Use Medication Directions Dispensed Refills Start Date End Date Stat potassium chloride ER 10 mEq capsule,extended release 11/18/2023 active metoprolol tartrate 25 mg tablet 11/18/2023 active warfarin 5 mg tablet 11/18/2023 active pantoprazole 40 mg tablet,delayed release 40 mg by oral route. 11/18/2023 active carbidopa 25 mg-levodopa 100 mg tablet 1.5 {tbl}s by oral route. 04/16/2023 active sulfamethoxazole 800 mg-trimethoprim 160 mg tablet 04/16/2023 active aspirin EC 81 MG tablet Take 1 tablet (81 mg total) by mouth daily. 07/22/2023 active oxycodone 5 mg tablet,oral ONLY (not feeding tubes) 5 mg every 4 hours by oral route. 08/19/2023 active carbidopa 25 mg-levodopa 100 mg disintegrating tablet 04/16/2023 act jayna meloxicam 7.5 mg tablet 7.5 mg by oral route. 08/19/2023 completed levothyroxine (SYNTHROID) tablet 150 mcg Take 2 tablets (300 mcg total) by mouth daily. 07/22/2023 active tamsulosin (FLOMAX) 0.4 MG CAPS Take 1 capsule (0.4 mg total) by mouth every night at bedtime. 07/22/2023 active Protonix 40 mg tablet,delayed release 40 mg by oral route. 08/19/2023 completed IBUPROFEN PO Take 300 mg by mouth daily. 07/22/2023 active carbidopa-levodopa (Sinemet) 25-100 MG per tablet Take 1.5 tablets by mouth 4 (four) times a day. 07/22/2023 active prednisone 10 mg tablet 04/16/2023 active temazepam 15 mg capsule TAKE 1 TO 2 CAPSULES BY MOUTH AT BEDTIME NEEDED 04/16/2023 active methocarbamol 750 mg tablet 750 mg 4 times a day by oral route. 08/19/2023 completed tamsulosin (FLOMAX) 0.4 MG CAPS Take 1 capsule (0.4 mg total) by mouth every night at bedtime. 07/22/2023 active Protonix 40 mg tablet,delayed release 40 mg by oral route. 08/19/2023 completed aspirin 81 mg tablet,delayed release 81 mg by oral route. 08/19/2023 active albuterol sulfate 2.5 mg/3 mL (0.083 %) solution for nebulization 04/16/2023 active bupropion HCl XL 300 mg 24 hr tablet, extended release 07/09/2023 active bupropion HCl SR 200 mg tablet,12 hr sustained-release TAKE 1 TABLET BY MOUTH EVERY DAY 04/16/2023 active albuterol sulfate HFA 90 mcg/actuation aerosol inhaler 04/16/2023 active levothyroxine 150 mcg tablet 300 ugs by oral route. 04/16/2023 active potassium chloride ER 20 mEq tablet,extended release(part/cryst) TAKE 1 TABLET BY MOUTH TWICE DAILY FOR 5 DAYS 04/16/2023 active amoxicillin 875 mg-potassium clavulanate 125 mg tablet TAKE 1 TABLET BY MOUTH TWICE DAILY FOR 5 DAYS 04/16/2023 active Multiple Vitamin (multi-vitamin) Take 1 tablet by mouth daily. 07/22/2023 active Tylenol Extra Strength 500 mg tablet 1000 mg every 6 hours by oral route. 08/19/2023 completed Senokot 8.6 mg tablet 1 {tbl} by oral route. 08/19/2023 completed Macrobid 100 mg capsule 100 mg by oral route. 08/19/2023 completed prednisone 20 mg tablet 09/16/2023 active tamsulosin 0.4 mg capsule 0.4 mg by oral route. 07/09/2023 active amlodipine 2.5 mg tablet TAKE 1 TABLET BY MOUTH DAILY 04/16/2023 active multivitamin tablet TAKE 1 TABLET BY MOUTH EVERY DAY 04/16/2023 active doxycycline hyclate 100 mg capsule 100 mg by oral route. 08/19/2023 completed famotidine 20 mg tablet 09/16/2023 active Zofran 4 mg tablet 4 mg every 6 hours by oral route. 08/19/2023 active temazepam (RESTORIL) 15 MG capsule Take 2 capsules (30 mg total) by mouth every night at bedtime as needed. 07/22/2023 active FLUoxetine (PROzac) 40 MG capsule Take 2 capsules (80 mg total) by mouth daily. 07/22/2023 active fluoxetine 40 mg capsule TAKE 2 CAPSULES BY MOUTH EVERY DAY 04/16/2023 active Problems Problem Status Onset Date Problem Type Date of Resolution Source Hypokalemia active 2023-07-21 ProblemAct [facility] History of hypothyroidism active 2023-07-21 ProblemAct [facility] Recurrent subluxation of patella, left knee active EncounterDiagnosisAct [facility] JUANI (obstructive sleep apnea) active 2023-07-21 ProblemAct [facility] Frequent falls active 2023-07-21 ProblemAct [facility] Osteoarthritis of left knee active 2022-03-13 ProblemAct CTTHNEMG Bipolar affective disorder, current episode depressed active 2023-07-21 ProblemAct CTTHNEMG Recurrent subluxation of the patella active 2023-07-06 ProblemAct ENS_AONECT Obstructive sleep apnea syndrome active 2023-07-21 ProblemAct E[facility] History of hypertension active 2023-07-21 ProblemAct E[facility] Hypokalemia active 2023-07-21 ProblemAct ENS_AO NECT Tremor active 2023-07-21 ProblemAct ENS[facility] [address] Spinal stenosis active 2023-07-21 ProblemAct EN S_AONECT Severe mitral valve regurgitation active 2023-07-21 ProblemAct ENS_AONECT Osteoarthritis of left knee joint active 2022-03-13 ProblemAct E[facility] Urgent desire to urinate active 2023-07-21 ProblemAct E[facility] History of hypothyroidism active 2023-07-21 ProblemAct E[facility] Asthma active 2023-07-21 ProblemAct [facility]THNEMG Tremor active 2023-07-21 ProblemAct [facility]THNEMG Primary hypertension active 2021-11-19 ProblemAct [facility]THNEMG Urinary urgency active 2023-07-[address] [facility]EMG History of hypertension active 2023-07-21 ProblemAct CTTHNEMG Lower extremity edema active EncounterDiagnosisAct CTTHNE MG Renal cyst active 2023-07-21 ProblemAct CTTHNEM G Spinal stenosis active 2023-07-[address] THNEMG Severe mitral regurgitation active 2023-07-21 ProblemAct CTTHNEMG Recurrent falls active 2023-07-21 ProblemAct EN S_AONECT Essential hypertension active 2021-11-19 ProblemAct [facility] Asthma active 2023-07-[address] Cyst of kidney active 2023-07-21 ProblemAct ENS _AONECT Bipolar affective disorder, current episode depression active 2023-07-21 ProblemAct ENS_AONEC T 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 2023-08-02 ProblemAct E[facility] Immunizations Vaccine Date Source Lot Number Status SARS-COV-2 (COVID-19) vaccin e, mRNA, spike protein, LNP, preservative free, 30 mcg/0.3mL dose 03/14/2022 ENS_AONECT [id number] completed
--- OUTSIDE RECORDS SUMMARY | 2024-08-31 19:12 | XMS_ITS | Clinical Summary ---
Author Organization Unknown Care Team Providers Care Engineering And Development Director Name Role Phone АНДРЕЙ ALMONTE, CHARLI Unavailable Unavailable STACEY RN, MASOUD Unavailable Unavailable ALEX POND, NOAH Unavailable Unavailabl wade [facility] DIRECTOR, FOREST Unavailable Unavail able [facility] DIRECTOR, DIEGO Unavailable Unavail able EVANGELIST RN, CLINICAL TEAM SPECIALIST, KAT aGrcia available Unavailable [facility] DIRECTOR, ADRIANNE Unavailable Unavailab le Payers Payer Name Policy Type Policy Number Effective Date Expira tion Date MEDICARE - [facility]/ME - PD [id number] [facility] [id number] Problems Condition Name Condition Details Condition Category Status Onset Date Resolution Date Last Treatment Date Treating Clinician Comments SPINAL STENOSIS, LUMBAR REGION WITHOUT NEUROGENIC MARY Active 08-16 00:00: 00 ESSENTIAL (PRIMARY) HYPERTENSION Active 08-16 00:00: 00 UNSPECIFIED ASTHMA, UNCOMPLICATE D Active 08-16 00:00: 00 ALCOHOL USE, UNSP WITH ALCOHOL-[place] PERSISTING DEMENTIA Active 08-16 00:00: 00 ANXIETY DISORDER, UNSPECIFIED Active 08-16 00:00: 00 BIPOLAR DISORDER, UNSPECIFIED Active 08-16 00:00: 00 HYPOTHYROIDI SM, UNSPECIFIED Active 08-16 00:00: 00 CHRONIC PAIN SYNDROME Active 08-16 00:00: 00 PERSONAL HISTORY OF NICOTINE DEPENDENCE Active 08-16 00:00: 00 PRESENCE OF ARTIFICIAL KNEE JOINT, BILATERAL Active 08-16 00:00: 00 PERSONAL HISTORY OF URINARY (TRACT) INFECTIONS Active 08-16 00:00: 00 SKILLED NURSING (CURRENT) USE OF OPIATE ANALGESIC Active 08-16 00:00: 00 SKILLED NURSING (CURRENT) USE OF ASPIRIN Active 08-16 00:00: 00 SENIOR MARKETING ASSOCIATE (CURRENT) USE OF NON-STEROIDA L NON-INFLAM (NSAID) Active 08-16 00:00: 00 HISTORY OF FALLING Active 08-16 00:00: 00 Allergies, Adverse Reactions, Alerts Allergy Name Allergy Type Status Severity Reaction(s) Onset Date Inactive Date Treating Clinician Comments NKA Propensity to adverse reactions Active 2021-12 17:44:2 5 Medications Ordered Medication Name Filled Medication Name Start Date Stop Date Current Medication? Ordering Clinician Indication Dosage Frequency Signature (SIG) Comments Components temazepam 15 mg capsule 11-28 00:00: 00 12-28 23:59 :00 No [id number] 1 capsule AT BEDTIME NEEDED 1 capsule AT BEDTIME NEEDED (route: oral) Med Classific ation: Central Nervous System Agents acetaminoph en 500 mg tablet 12-24 00:00: 00 12-28 23:59 :00 No [id number] 2 tablet EVERY 8 HOURS 2 tablet EVERY 8 HOURS (route: oral) Med Classific ation: Analgesic , Anti-infl ammatory or Antipyret ic amlodipine 2.5 mg tablet 12-24 00:00: 00 12-28 23:59 :00 No [id number] 1 tablet EVERY AM 1 tablet EVERY AM (route: oral) Med Classific ation: Cardiovas cular Therapy Agents fluoxetine 40 mg capsule 12-24 00:00: 00 12-28 23:59 :00 No [id number] 1 capsule DAILY 1 capsule DAILY (route: oral) Med Classific ation: Central Nervous System Agents Levoxyl 150 mcg tablet 12-24 00:00: 00 12-28 23:59 :00 No [id number] 1 tablet DAILY 1 tablet DAILY (route: oral) Med Classific ation: Endocrine meloxicam 7.5 mg tablet 12-24 00:00: 00 08-18 23:59 :00 No [id number] 1 tablet EVERY AM 1 tablet EVERY AM (route: oral) Med Classific ation: Analgesic , Anti-infl ammatory or Antipyret ic oxycodone 5 mg tablet 12-24 00:00: 00 08-18 23:59 :00 No [id number] 1 tablet EVERY 4 HOURS 1 tablet EVERY 4 HOURS (route: oral) Med Classific ation: Analgesic , Anti-infl ammatory or Antipyret ic Wellbutrin XL 150 mg 24 hr tablet, extended release 12-24 00:00: 00 12-28 23:59 :00 No [id number] 1 tablet EVERY AM 1 tablet EVERY AM (route: oral) Med Classific ation: Central Nervous System Agents aspirin 81 mg tablet,darien yed release 08-21 00:00: 00 12-28 23:59 :00 No [id number] 1 tablet DAILY 1 tablet DAILY (route: oral) Med Classific ation: Hematolog ical Agents multivitami n tablet 08-21 00:00: 00 12-28 23:59 :00 No [id number] 1 tablet DAILY 1 tablet DAILY (route: oral) Med Classific ation: Electroly te Balance-N utritiona l Products Vital Signs Vital Name Observation Time Observation Value Commen ts Temperature 2022-10-16 10:31:00.000 97.7 [degF] Temperature 2022-10-01 19:48:00.000 98.2 [degF] Temperature 2022-09-17 13:21:00.000 98.4 [degF] Temperature 2022-09-01 13:09:00.000 98.2 [degF] Pulse 2022-10-16 10:31:00.000 76 /min Pulse 2022-10-01 19:48:00.000 77 /min Pulse 2022-09-17 13:21:00.000 76 /min Pulse 2022-09-07 13:51:00.000 82 /min Pulse 2022-09-01 13:09:00.000 92 /min Pulse 2022-08-25 13:14:00.000 68 /min O2 Saturation (%) 2022-10-16 10:31:00.000 95 % O2 Saturation (%) 2022-10-01 19:48:00.000 97 % O2 Saturation (%) 2022-09-17 13:21:00.000 98 % O2 Saturation (%) 2022-09-07 13:51:00.000 97 % O2 Saturation (%) 2022-09-01 13:09:00.000 99 % O2 Saturation (%) 2022-08-25 13:14:00.000 98 % Respirations 2022-10-16 10:31:00.000 20 /min Respirations 2022-10-01 19:48:00.000 18 /min Respirations 2022-09-17 13:21:00.000 18 /min Respirations 2022-09-01 13:09:00.000 20 /min Systolic Blood Pressure 2022-10-16 10:31:00.000 126 mm [Hg] Systolic Blood Pressure 2022-10-01 19:48:00.000 128 mm [Hg] Systolic Blood Pressure 2022-09-17 13:21:00.000 150 mm [Hg] Systolic Blood Pressure 2022-09-07 13:51:00.000 138 mm [Hg] Systolic Blood Pressure 2022-09-01 13:09:00.000 112 mm [Hg] Systolic Blood Pressure 2022-08-25 13:14:00.000 138 mm [Hg] Diastolic Blood Pressure 2022-10-16 10:31:00.000 70 mm [Hg] Diastolic Blood Pressure 2022-10-01 19:48:00.000 78 mm [Hg] Diastolic Blood Pressure 2022-09-17 13:21:00.000 90 mm [Hg] Diastolic Blood Pressure 2022-09-07 13:51:00.000 76 mm [Hg] Diastolic Blood Pressure 2022-09-01 13:09:00.000 70 mm [Hg] Diastolic Blood Pressure 2022-08-25 13:14:00.000 66 mm [Hg] Plan of Treatment Planned Activity Planned Date Details Comments Future Scheduled Test SKILLED NU RSE TO EVALUATE PATIENT, IDENTIFY PRIMARY AND CO-MORBID CONDITIONS CODED PER CODING GUIDELINES, AND DEVELOP PATIENT SPECIFIC PLAN OF CARE THAT INCLUDES PATIENT GOAL FOR HOME HEALTH. CLINICAL SUMMARY RECERT, 60 DAY THE PATIENT IS RECEIVING HOMECARE DUE TO SPINAL STENOSIS, ARTHRITIS, URINARY INCONTINENCE, CHRONIC PAIN RECENT HOSPITALIZATION/INPATIENT ADMISSION RELATED TO: NONE NEW OR CHANGED MEDICATIONS: PATIENT NO LONGER TAKES MELOXICAM OR OXYCODONE. STATES HAS BEEN TAKING BABY ASPIRIN AND MULTIVITAMIN PATIENT LIVING SITUATION/CAREGIVER STATUS: A L F RECENT FALLS: NONE REPORTED SUMMARIZE SKILLED NEED: SKILLED NURSE FOR ASSESS AND TEACH DOES THESE PROCESS, THEN CARE AND PREVENTATIVE BREAKDOWN, MEDICATIONS, HOME SAFETY, PAIN MANAGEMENT, FALL PREVENTION AND DIETARY NEEDS ADDITIONAL DISCIPLINES NEEDED OR DECLINED ORDERED SERVICES: OT EVAL IN TWO WEEKS [code = SKILLED NURSE TO EVALUATE PATIENT, IDENTIFY PRIMARY AND CO-MORBID CONDITIONS CODED PER CODING GUIDELINES, AND DEVELOP PATIENT SPECIFIC PLAN OF CARE THAT INCLUDES PATIENT GOAL FOR HOME HEALTH. CLINICAL SUMMARY RECERT, 60 DAY THE PATIENT IS RECEIVING HOMECARE DUE TO SPINAL STENOSIS, ARTHRITIS, URINARY INCONTINENCE, CHRONIC PAIN RECENT HOSPITALIZATION/INPATIENT ADMISSION RELATED TO: NONE NEW OR CHANGED MEDICATIONS: PATIENT NO LONGER TAKES MELOXICAM OR OXYCODONE. STATES HAS BEEN TAKING BABY ASPIRIN AND MULTIVITAMIN PATIENT LIVING SITUATION/CAREGIVER STATUS: A L F RECENT FALLS: NONE REPORTED SUMMARIZE SKILLED NEED: SKILLED NURSE FOR ASSESS AND TEACH DOES THESE PROCESS, THEN CARE AND PREVENTATIVE BREAKDOWN, MEDICATIONS, HOME SAFETY, PAIN MANAGEMENT, FALL PREVENTION AND DIETARY NEEDS ADDITIONAL DISCIPLINES NEEDED OR DECLINED ORDERED SERVICES: OT EVAL IN TWO WEEKS] Future Scheduled Test SKILLED NU RSE TO PROVIDE TEACHING/REINFORCEMENT RELATED TO URINARY INCONTINENCE. [code = SKILLED NURSE TO PROVIDE TEACHING/REINFORCEMENT RELATED TO URINARY INCONTINENCE.] Future Scheduled Test SKILLED NU RSE TO REVIEW PATIENT MEDICATIONS. INSTRUCT PATIENT/CAREGIVER ON MONITORING OF EFFECTIVENESS, ADVERSE DRUG REACTIONS, SIDE EFFECTS OF ALL MEDICATIONS (PRESCRIPTION/-OTC), AND HOW AND WHEN TO REPORT PROBLEMS. [code = SKILLED NURSE TO REVIEW PATIENT MEDICATIONS. INSTRUCT PATIENT/CAREGIVER ON MONITORING OF EFFECTIVENESS, ADVERSE DRUG REACTIONS, SIDE EFFECTS OF ALL MEDICATIONS (PRESCRIPTION/-OTC), AND HOW AND WHEN TO REPORT PROBLEMS.] Future Scheduled Test SKILLED NU RSE TO PERFORM HOME SAFETY AND FALL ASSESSMENT AND PROVIDE INSTRUCTION TO IMPLEMENT HOME SAFETY AND FALL PREVENTION STRATEGIES. [code = SKILLED NURSE TO PERFORM HOME SAFETY AND FALL ASSESSMENT AND PROVIDE INSTRUCTION TO IMPLEMENT HOME SAFETY AND FALL PREVENTION STRATEGIES.] Future Scheduled Test SKILLED NU RSE FOR O/A OF ALTERED MOOD D/T BIPOLAR DISORDER. [code = SKILLED NURSE FOR O/A OF ALTERED MOOD D/T BIPOLAR DISORDER.] Future Scheduled Test PATIENT COOPER S A RISK OF HOSPITALIZATION AND ED USE. SKILLED NURSE TO ESTABLISH SUPPORT MEASURES TO MINIMIZE RISK OF HOSPITALIZATION AND ED USE, AND INSTRUCT PATIENT/CAREGIVER ON METHODS TO REDUCE AVOIDABLE HOSPITALIZATION AND ED USE. [code = PATIENT HAS A RISK OF HOSPITALIZATION AND ED USE. SKILLED NURSE TO ESTABLISH SUPPORT MEASURES TO MINIMIZE RISK OF HOSPITALIZATION AND ED USE, AND INSTRUCT PATIENT/CAREGIVER ON METHODS TO REDUCE AVOIDABLE HOSPITALIZATION AND ED USE.] Future Scheduled Test SKILLED NU RSE TO PROVIDE INSTRUCTION TO PATIENT/CAREGIVER RELATED TO DISCHARGE PLANNING. [code = SKILLED NURSE TO PROVIDE INSTRUCTION TO PATIENT/CAREGIVER RELATED TO DISCHARGE PLANNING. ] Future Scheduled Test SKILLED NU RSE FOR OBSERVATION AND ASSESSMENT OF PATIENTS PAIN LEVEL AND EFFECTIVENESS OF PAIN MANAGEMENT REGIMEN. SKILLED NURSE TO INSTRUCT PATIENT/CAREGIVER REGARDING PHARMACOLOGIC AND NON-PHARMACOLOGIC PAIN CONTROL MEASURES. SKILLED NURSE TO REPORT TO PHYSICIAN IF PAIN IS UNCONTROLLED WITH CURRENT PAIN MANAGEMENT REGIMEN. [code = SKILLED NURSE FOR OBSERVATION AND ASSESSMENT OF PATIENTS PAIN LEVEL AND EFFECTIVENESS OF PAIN MANAGEMENT REGIMEN. SKILLED NURSE TO INSTRUCT PATIENT/CAREGIVER REGARDING PHARMACOLOGIC AND NON-PHARMACOLOGIC PAIN CONTROL MEASURES. SKILLED NURSE TO REPORT TO PHYSICIAN IF PAIN IS UNCONTROLLED WITH CURRENT PAIN MANAGEMENT REGIMEN.] Future Scheduled Test OCCUPATION AL THERAPIST TO EVALUATE PATIENT FOR EVAL RT HAND FUNCTION FOR ADLS [code = OCCUPATIONAL THERAPIST TO EVALUATE PATIENT FOR EVAL RT HAND FUNCTION FOR ADLS] Future Scheduled Test SKILLED NU RSE FOR O/A OF RESPIRATORY SYSTEM TO IDENTIFY CHANGES ASSOCIATED WITH EXACERBATION AND TO PROVIDE SKILLED TEACHING ON MANAGEMENT OF JUANI RESPIRATORY DISEASE PROCESS. [code = SKILLED NURSE FOR O/A OF RESPIRATORY SYSTEM TO IDENTIFY CHANGES ASSOCIATED WITH EXACERBATION AND TO PROVIDE SKILLED TEACHING ON MANAGEMENT OF JUANI RESPIRATORY DISEASE PROCESS.] Future Scheduled Test SKILLED NU RSE TO INSTRUCT/REINFORCE MEASURES TO PREVENT BARRIERS TO CARE. [code = SKILLED NURSE TO INSTRUCT/REINFORCE MEASURES TO PREVENT BARRIERS TO CARE.] Future Scheduled Test SKILLED NU RSE FOR O/A AND TEACHING OF ENDOCRINE SYSTEM TO IDENTIFY CHANGES ASSOCIATED WITH EXACERBATION OF HYPOTHYROID FOR EARLY INTERVENTION OF COMPLICATIONS. [code = SKILLED NURSE FOR O/A AND TEACHING OF ENDOCRINE SYSTEM TO IDENTIFY CHANGES ASSOCIATED WITH EXACERBATION OF HYPOTHYROID FOR EARLY INTERVENTION OF COMPLICATIONS.] Future Scheduled Test SKILLED NU RSE TO ASSESS PATIENT'S SKIN INTEGRITY AND INSTRUCT PATIENT/CAREGIVER ON MEASURES TO PREVENT PRESSURE ULCERS [code = SKILLED NURSE TO ASSESS PATIENT'S SKIN INTEGRITY AND INSTRUCT PATIENT/CAREGIVER ON MEASURES TO PREVENT PRESSURE ULCERS] Future Scheduled Test SKILLED NU RSE TO PROVIDE TEACHING ON SIGNS AND SYMPTOMS AND MANAGEMENT OF HYPERTENSION. [code = SKILLED NURSE TO PROVIDE TEACHING ON SIGNS AND SYMPTOMS AND MANAGEMENT OF HYPERTENSION.] Future Scheduled Test SKILLED NU RSE FOR O/A OF SIGNS AND SYMPTOMS OF ALCOHOL USE. INSTRUCT PATIENT ON RELATED RISKS AND WILL NOTIFY TREATMENT TEAM NEEDED. [code = SKILLED NURSE FOR O/A OF SIGNS AND SYMPTOMS OF ALCOHOL USE. INSTRUCT PATIENT ON RELATED RISKS AND WILL NOTIFY TREATMENT TEAM NEEDED.] Goal 2022-02-19 Patient Goal - TO FEEL SHIREEN R Goal 2022-04-16 Patient Goal - TO FEEL SHIREEN R Goal 2022-06-19 Patient Goal - TO FEEL SHIREEN R Goal 2022-04-21 Patient Goal - TO FEEL SHIREEN R Goal 2022-08-18 Patient Goal - T O FEEL BETTER GET MEDS ORGANIZED Goal 2022-10-16 Patient Goal - T O FEEL BETTER AND GAIN SOME STRENGTH AND BALANCE Goal Provider Goal - A PLAN OF CARE WILL BE ESTABLISHED THAT MEETS PATIENT'S JAIL NEEDS AND INCLUDES PATIENT GOAL FOR HOME HEALTH. Goal Provider Goal - PATIENT / CAREGIVER WILL VERBALIZE UNDERSTANDING OF EFFECTS OF URINARY INCONTINENCE BY THE END OF THE CERTIFICATION PERIOD. Goal Provider Goal - PATIENT/CAREGIVER WILL VERBALIZE UNDERSTANDING OF EDUCATION PROVIDED ON MEDICATIONS BY THE END OF THE CERTIFICATION PERIOD. Goal Provider Goal - PATIENT/CAREGIVER WILL VERBALIZE/DEMONSTRATE EFFECTIVE HOME SAFETY AND FALL PREVENTION STRATEGIES THROUGHOUT CERTIFICATION PERIOD. Goal Provider Goal - PATIENT WILL BE ABLE TO PERFORM DAILY FUNCTIONS AND HAVE OPTIMAL IMPROVEMENT IN MOOD STABILITY. Goal Provider Goal - PATIENT WILL HAVE SUPPORT MEASURES ESTABLISHED TO PREVENT HOSPITALIZATION AND ED USE AND PATIENT/CAREGIVER WILL VERBALIZE/DEMONSTRATE METHODS TO REDUCE AVOIDABLE HOSPITALIZATION AND ED USE BY THE END OF THE EPISODE. Goal Provider Goal - PATIENT/CAREGIVER WILL VERBALIZE UNDERSTANDING OF DISCHARGE PLANNING INSTRUCTIONS BY DATE OF DISCHARGE. Goal Provider Goal - PATIENT/CAREGIVER WILL DEMONSTRATE UNDERSTANDING OF PHARMACOLOGIC AND NONPHARMACOLOGIC PAIN CONTROL MEASURES AND PATIENT WILL HAVE IMPROVEMENT IN PAIN INTERFERING WITH ACTIVITY EVIDENCED BY PAIN CONTROLLED AT LEVEL OF 7 OR LESS BY END OF CERTIFICATION PERIOD. Goal Provider Goal - OCCUPATIONAL THERAPY EVALUATION TO BE COMPLETED WITH RECOMMENDATIONS AND WRITTEN PLAN OF TREATMENT ESTABLISHED FOR THE PHYSICIANS SIGNATURE. Goal Provider Goal - PATIENT/CAREGIVER WILL VERBALIZE/DEMONSTRATE MANAGEMENT OF RESPIRATORY DISEASE PROCESS. CHANGES IN RESPIRATORY STATUS WILL BE IDENTIFIED AND REPORTED TO PHYSICIAN FOR PROMPT INTERVENTION THROUGHOUT THE CERTIFICATION PERIOD. Goal Provider Goal - PATIENT / CAREGIVER WILL VERBALIZE UNDERSTANDING OF BARRIERS PREVENTING PROPER CARE AND DEMONSTRATE MEASURES TO ELIMINATE THOSE BARRIERS DURING THIS EPISODE. Goal Provider Goal - PATIENT/CAREGIVER WILL VERBALIZE SIGNS AND SYMPTOMS OF EXACERBATION TO REPORT TO NURSE/PHYSICIAN. CHANGES IN ENDOCRINE SYSTEM WILL BE IDENTIFIED AND REPORTED TO PHYSICIAN FOR PROMPT INTERVENTION THROUGHOUT THE CERTIFICATION PERIOD. Goal Provider Goal - PATIENT/CAREGIVER WILL VERBALIZE UNDERSTANDING OF PRESSURE ULCER PREVENTION BY END OF CERTIFICATION PERIOD. Goal Provider Goal - PATIENT/CAREGIVER WILL VERBALIZE SIGNS AND SYMPTOMS OF HYPERTENSION AND WILL BE ABLE TO DEMONSTRATE ABILITY TO MANAGE EXACERBATION BY END OF CERTIFICATION PERIOD Goal Provider Goal - PATIENT WILL REMAIN SAFE IN COMMUNITY AND WILL ACKNOWLEDGE RELATED RISKS OF SUBSTANCE USE. Reason for Visit INDEPENDENT WITH USE OF ASSISTIVE DEVICE Encounters Start Date/Time End Date/Time Encounter Type Admission Type Attending [facility] Care Department Encounter ID Discharge Date Discharge Status Discharge Condition Discharge Reason Percent Goals Met 2021-12-24 00:00:00 2022-10-16 00:00:00 Outpatient RECERTIFIC MASOUD [facility] [id number] 00:00:00 DISCHARGE TO HOME OR SELF CARE INDEPENDEN T WITH USE OF ASSISTIVE DEVICE GOALS MET ( ONLY) 72.00
== END 2024-08-31 15:02 | disposition home or self-care (01) ==
PROVIDERS: PCP Internal Medicine; Visit Provider Psychiatry & Neurology Neurology
DX: R26.89 Other abnormalities of gait and mobility (principal)
CPT/HCPCS: 99214; G2211

== ENCOUNTER → 2024-08-31 14:27 | Outpatient (BNVA) | payer MEDICARE, OTHER, SELFPAY | PROVIDERS: PCP Internal Medicine; Visit Provider Psychiatry & Neurology Neurology | DX: R26.89 Other abnormalities of gait and mobility (principal); Z96.653 Presence of artificial knee joint, bilateral | CPT/HCPCS: 99212 ==

== ENCOUNTER → 2024-10-11 23:59 | Outpatient (BNV) | payer MEDICARE, OTHER, SELFPAY | PROVIDERS: PCP Internal Medicine; Visit Provider Psychiatry & Neurology Neurology | DX: R47.1 Dysarthria and anarthria (principal); R41.89 Other symptoms and signs involving cognitive functions and awareness; R32 Unspecified urinary incontinence | CPT/HCPCS: G0180 ==

== ENCOUNTER 2025-02-28 13:35 | Outpatient (AMB) | payer MEDICARE, OTHER, SELFPAY ==
[2025-02-28 13:47] VITALS: BP 120/68; PULSE 72; O2SAT 95; BMI 25.8
--- NOTE | 2025-02-28 13:47 | MHC.OFFVIS ---
Vital Signs 02/28/25 13:47 Height 5 ft 11 in Weight 185 lb BMI 25.8 BP 120/68 Blood Pressure Location Rt brachial Position Sitting Pulse 72 Pulse Source Pulse Oximeter Pulse Oximetry (%) 95 Oxygen Delivery Method Room Air Intake Visit Reasons: Follow Up 6mo Intake Note: Patient presents for follow up. referred to [facility] not scanned Instruction Dean Required: No Accompanied by: Self / Same As Patient Allergies No Known Allergies Allergy (Verified 02/28/25 13:48) Medication List - Last Reconciled 02/28/25 by Demi Garcia MD albuterol sulfate 90 mcg/actuation inhalation amlodipine 2.5 mg PO DAILY bupropion HCl SR ea PO carbidopa-levodopa 25-100 mg 2 tab at8 am 1.5tab at 11am 2tabs 5 pm 1.5 tabs 11pm orally 4 times a day; fluoxetine 40 mg PO levothyroxine 75 mcg PO multivitamin 1 tab PO potassium chloride ER tabs PO temazepam 30 mg PO HPI Comments Details: 80y/o male comes for follow up of stiffness , balance issues and gait problems.No worsening of his gait and balance.Mild worsening of his ADLS. He has difficulty writing He is doing better with good physical exercise. He is ambulating with a walker and does not use his wheel chair as often He is independent in all his ADLs. but slow. He had knee surgery in Jul 2023 - revision and he is feeling better.He had mitral valve repair in Sep 2023 and he is feeling better.No falls He responded to carbidopa/levodopa 25/100 2 tab 11am,1 /2 4pm, 2 tabs 8pm, 1 11pm .His gait and transfer in and out of the car is better no side effects .He has urinary incontinence.He reports some cognitive issues. Speech is Ok Previous history-He had bilateral knee replacements in November 2021 and March 2022. He was wheelchair bound for 6-12 mths prior to that which made his recovery slow. His knee pain resolved but his gait and balance did not improve. His balance and gait issues started atleast 10 years ago - he had knee pain. 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 He also had back pain many years ago treated with cortisone shots and has resolved. He denies any numbness, denies any tremors. He has h/o falls.He reports fh/o knee issues and has gait problems. He reports mild dysarthria. 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 Asthma Depression Hypothyroidism Surgical History H/O mitral valve repair Hx of heart surgery H/O left knee surgery Hx of shoulder surgery Hx of knee surgery Hx of appendectomy Family History Father COPD (chronic obstructive pulmonary disease) Mother Leukemia Social History Alcohol intake: never Patient Tobacco Use Status: Never used Tobacco Physical Exam Vital Signs: Last Vital Signs Pulse 72 02/28/25 13:47 BP 120/68 02/28/25 13:47 Pulse Ox 95 02/28/25 13:47 Oxygen Delivery Method Room Air 02/28/25 13:47 BMI result Body Mass Index 25.8 Const General: cooperative, healthy appearing and comfortable Nutritional Appearance: average body habitus Orientation/consciousness: patient oriented x3 Limitations: wheelchair HEENT Head: Yes normal to inspection and Yes normocephalic Eyes Pupils: Equal, round and reactive pupils present Neuro Other: good facial expression and blink normal posture No tremors no cog wheel rigidity with walker - good posture , mild narrow based , good stride General: patient oriented x3 Cranial nerves: Yes Facial sensation intact/muscles of mastication intact, Yes Equal, round and reactive pupils present, Yes Bilaterally intact EOM present, Yes Nystagmus not present, Yes Normal facial strength present, Yes Midline tongue present, Yes Symmetric palate elevation present and Yes Ability to bilaterally elevate shoulders present Motor exam (neuro): 5/5 motor strength present throughout and Normal motor muscle tone present throughout Deep tendon reflexes (DTR's): Left patellar reflex intensity grade: 1+ Assessment & Plan Assessment & Plan (1) Neurodegenerative gait disorder: Comment: Frontal gait disorder, ? astasia abasia Code(s): R26.89 - Other abnormalities of gait and mobility Category: Medical Plan carbidopa/levodopa 25/100 2-1.5-2-1.5 side effects including GI distress, hypotension, dizziness etc discussed Use hand splints Coding Level of Care Code Est Pt Level 4 (65419) Complex EM visit Add On G2211 Diagnoses Neurodegenerative gait disorder R26.89
--- OUTSIDE RECORDS SUMMARY | 2025-02-28 14:26 | XMS_ITS ---
Author Name [facility] Organization Unknown Results Test Name/Text Value Interpretation Date Range Source INR PPP 1.7 Above high normal 10/11/2023 0.8 - 1.1 [facility] PT TIME PPP 20.6 sec Above high normal 10/11/2023 10.5 - 13 .3 [facility] PT TIME PPP 18.9 sec Above high normal 10/10/2023 10.5 - 13 .3 [facility] INR PPP 1.6 Above high normal 10/10/2023 0.8 - 1.1 [facility] MAGNESIUM SERPL MCNC 2.0 mg/dL Normal 10/10/2023 1.7 - 2.8 [facility] MCV RBC AUTO 92.0 fL Normal 10/10/2023 78 - 100 [facility] NEUTROPHILS NO. BLD AUTO 5.8 K/uL Normal 10/10/2023 1.8 - 7.8 [facility] MONOCYTES NFR BLD AUTO 10.4 % Normal 10/10/2023 2 - 12 [facility] MCHC RBC AUTO MCNC 33.9 g/dL Normal 10/10/2023 32 - 36 [facility] BASOPHILS NFR BLD AUTO 1.1 % Normal 10/10/2023 0 - 2 [facility] HGB BLD MCNC 9.2 g/dL Below low normal 10/10/2023 13.5 - 18 [facility] PLATELET NO. BLD AUTO 329.0 K/uL Normal 10/10/2023 150 - 450 [facility] WBC NO. BLD AUTO 7.8 K/uL Normal 10/10/2023 4 - 10.5 [facility] LYMPHOCYTES NFR BLD AUTO 9.5 % Below low normal 10/10/2023 20 - 48 [facility] LYMPHOCYTES NO. BLD AUTO 0.7 K/uL Below low normal 10/10/2023 1 - 3.2 [facility] PMV BLD AUTO 7.8 fL Normal 10/10/2023 7.4 - 11.4 [facility] EMPERATRIZ EOSINOPHIL NO. BLD AUTO 0.3 K/uL Normal 10/10/2023 0 - 0.5 [facility] NEUTROPHILS NFR BLD AUTO 75.0 % Above high normal 10/10/2023 44 - 74 [facility] MCH RBC QN AUTO 31.1 pg Normal 10/10/2023 25 - 33 [facility] HCT VFR BLD AUTO 27.1 % Below low normal 10/10/2023 40 - 54 [facility] RBC NO. BLD AUTO 2.95 M/uL Below low normal 10/10/2023 4.7 - 6 [facility] MONOCYTES NO. BLD AUTO 0.8 K/uL Normal 10/10/2023 0 - 0.8 [facility] RDW RBC AUTO RTO 15.1 % Normal 10/10/2023 12.1 - 17.7 [facility] EOSINOPHIL NFR BLD AUTO 4.0 % Normal 10/10/2023 0 - 6 [facility] BASOPHILS IN BLOOD BY AUTOMATED COUNT 0.1 K/uL Normal 10/10/2023 0 - 0.2 [facility] DIFFERENTIAL TYPE AUTOMATED Normal 10/10/2023 C [facility] HCO3 SER SCNC 27.0 mmol/L Normal 10/10/2023 24 - 32 [facility] CREAT SERPL MCNC 0.8 mg/dL Normal 10/10/2023 0.7 - 1.3 [facility] CHLORIDE SERPL SCNC 103.0 mmol/L Normal 10/10/2023 98 - 1 07 [facility] CALCIUM SERPL MCNC 8.5 mg/dL Normal 10/10/2023 8.4 - 10.2 [facility] ANION GAP SERPL SCNC 7.0 mmol/L Normal 10/10/2023 5 - 14 [facility] GLUCOSE SERPL MCNC 97.0 mg/dL Normal 10/10/2023 70 - 199 [facility] Glomerular filtration rate/1.73 sq M. predicted 89.0 Normal 10/10/2023 60 - [facility] POTASSIUM SERPL SCNC 3.7 mmol/L Normal 10/10/2023 3.5 - 5.1 [facility] BUN SERPL MCNC 23.0 mg/dL Above high normal 10/10/2023 9 - 2 0 [facility] SODIUM SERPL SCNC 137.0 mmol/L Normal 10/10/2023 135 - 14 5 [facility] INR PPP 1.7 Above high normal 10/09/2023 0.8 - 1.1 C [facility] PT TIME PPP 19.7 sec Above high normal 10/09/2023 10.5 - 13 .3 [facility] PMV BLD AUTO 8.0 fL Normal 10/09/2023 7.4 - 11.4 [facility] EMPERATRIZ PLATELET NO. BLD AUTO 241.0 K/uL Normal 10/09/2023 150 - 450 [facility] MCV RBC AUTO 93.0 fL Normal 10/09/2023 78 - 100 [facility] HCT VFR BLD AUTO 26.3 % Below low normal 10/09/2023 40 - 54 [facility] MCHC RBC AUTO MCNC 33.1 g/dL Normal 10/09/2023 32 - 36 [facility] HGB BLD MCNC 8.7 g/dL Below low normal 10/09/2023 13.5 - 18 [facility] RBC NO. BLD AUTO 2.83 M/uL Below low normal 10/09/2023 4.7 - 6 [facility] MCH RBC QN AUTO 30.8 pg Normal 10/09/2023 25 - 33 [facility] WBC NO. BLD AUTO 6.2 K/uL Normal 10/09/2023 4 - 10.5 [facility] RDW RBC AUTO RTO 15.4 % Normal 10/09/2023 12.1 - 17.7 [facility] PHOSPHATE SERPL MCNC 2.9 mg/dL Normal 10/09/2023 2.5 - 4.5 [facility] MAGNESIUM SERPL MCNC 2.1 mg/dL Normal 10/09/2023 1.7 - 2.8 [facility] POTASSIUM SERPL SCNC 3.8 mmol/L Normal 10/09/2023 3.5 - 5.1 [facility] CREAT SERPL MCNC 0.8 mg/dL Normal 10/09/2023 0.7 - 1.3 [facility] Glomerular filtration rate/1.73 sq M. predicted 89.0 Normal 10/09/2023 60 - [facility] CALCIUM SERPL MCNC 8.2 mg/dL Below low normal 10/09/2023 8.4 - 10.2 [facility] SODIUM SERPL SCNC 138.0 mmol/L Normal 10/09/2023 135 - 14 5 [facility] HCO3 SER SCNC 30.0 mmol/L Normal 10/09/2023 24 - 32 [facility] BUN SERPL MCNC 20.0 mg/dL Normal 10/09/2023 9 - 20 [facility] CHLORIDE SERPL SCNC 102.0 mmol/L Normal 10/09/2023 98 - 1 07 [facility] ANION GAP SERPL SCNC 6.0 mmol/L Normal 10/09/2023 5 - 14 [facility] GLUCOSE SERPL MCNC 81.0 mg/dL Normal 10/09/2023 70 - 199 [facility] GLUCOSE BLDC GLUCOMTR MCNC 87.0 mg/dL Normal 10/08/2023 70 - 199 [facility] GLUCOSE BLDC GLUCOMTR MCNC 93.0 mg/dL Normal 10/08/2023 70 - 199 [facility] GLUCOSE BLDC GLUCOMTR MCNC 84.0 mg/dL Normal 10/08/2023 70 - 199 [facility] INR PPP 1.6 Above high normal 10/08/2023 0.8 - 1.1 [facility] PT TIME PPP 18.8 sec Above high normal 10/08/2023 10.5 - 13 .3 [facility] APTT TIME PPP 30.0 sec Normal 10/08/2023 25 - 37 [facility] EMPERATIRZ Glomerular filtration rate/1.73 sq M. predicted 93.0 Normal 10/08/2023 60 - [facility] POTASSIUM SERPL SCNC 3.8 mmol/L Normal 10/08/2023 3.5 - 5.1 [facility] GLUCOSE SERPL MCNC 87.0 mg/dL Normal 10/08/2023 70 - 199 [facility] CHLORIDE SERPL SCNC 102.0 mmol/L Normal 10/08/2023 98 - 1 07 [facility] ANION GAP SERPL SCNC 6.0 mmol/L Normal 10/08/2023 5 - 14 [facility] CALCIUM SERPL MCNC 8.5 mg/dL Normal 10/08/2023 8.4 - 10.2 [facility] SODIUM SERPL SCNC 136.0 mmol/L Normal 10/08/2023 135 - 14 5 [facility] CREAT SERPL MCNC 0.7 mg/dL Normal 10/08/2023 0.7 - 1.3 [facility] HCO3 SER SCNC 28.0 mmol/L Normal 10/08/2023 24 - 32 [facility] BUN SERPL MCNC 18.0 mg/dL Normal 10/08/2023 9 - 20 [facility] MAGNESIUM SERPL MCNC 2.2 mg/dL Normal 10/08/2023 1.7 - 2.8 [facility] BASOPHILS IN BLOOD BY AUTOMATED COUNT 0.0 K/uL Normal 10/08/2023 0 - 0.2 [facility] BASOPHILS NFR BLD AUTO 0.5 % Normal 10/08/2023 0 - 2 [facility] MCH RBC QN AUTO 31.3 pg Normal 10/08/2023 25 - 33 [facility] LYMPHOCYTES NFR BLD AUTO 9.3 % Below low normal 10/08/2023 20 - 48 [facility] DIFFERENTIAL TYPE AUTOMATED Normal 10/08/2023 C [facility] LYMPHOCYTES NO. BLD AUTO 0.7 K/uL Below low normal 10/08/2023 1 - 3.2 [facility] MONOCYTES NO. BLD AUTO 0.8 K/uL Normal 10/08/2023 0 - 0.8 [facility] PLATELET NO. BLD AUTO 202.0 K/uL Normal 10/08/2023 150 - 450 [facility] HGB BLD MCNC 8.9 g/dL Below low normal 10/08/2023 13.5 - 18 [facility] EOSINOPHIL NFR BLD AUTO 2.2 % Normal 10/08/2023 0 - 6 [facility] EOSINOPHIL NO. BLD AUTO 0.2 K/uL Normal 10/08/2023 0 - 0.5 [facility] HCT VFR BLD AUTO 26.4 % Below low normal 10/08/2023 40 - 54 [facility] WBC NO. BLD AUTO 7.7 K/uL Normal 10/08/2023 4 - 10.5 [facility] NEUTROPHILS NO. BLD AUTO 5.8 K/uL Normal 10/08/2023 1.8 - 7.8 [facility] PMV BLD AUTO 8.5 fL Normal 10/08/2023 7.4 - 11.4 [facility] EMPERATRI[facility] RDW RBC AUTO RTO 15.5 % Normal 10/08/2023 12.1 - 17.7 [facility] RBC NO. BLD AUTO 2.85 M/uL Below low normal 10/08/2023 4.7 - 6 [facility] MCHC RBC AUTO MCNC 33.8 g/dL Normal 10/08/2023 32 - 36 [facility] NEUTROPHILS NFR BLD AUTO 77.0 % Above high normal 10/08/2023 44 - 74 [facility] MONOCYTES NFR BLD AUTO 11.0 % Normal 10/08/2023 2 - 12 [facility] MCV RBC AUTO 92.7 fL Normal 10/08/2023 78 - 100 [facility] GLUCOSE BLDC GLUCOMTR MCNC 110.0 mg/dL Normal 10/08/2023 70 - 199 [facility] HGB BLD MCNC 9.1 g/dL Below low normal 10/08/2023 13.5 - 18 [facility] HCT VFR BLD AUTO 26.7 % Below low normal 10/08/2023 40 - 54 [facility] GLUCOSE BLDC GLUCOMTR MCNC 92.0 mg/dL Normal 10/07/2023 70 - 199 [facility] ABO+RH GP BLD O POSITIVE Normal 10/08/2023 [facility] BLD GP AB SCN SERPL QL NEGATIVE Normal 10/08/2023 [facility] BLOOD BANK CMNT PATIENT-IMP Testing performed at [facility], [address] [place] [id number], Nayana Corrales MD Heating [employer] Air Conditioning Mechanic, [facility] [id number] Normal 10/08/2023 [facility] TRANS NUM UNITS PACKED RBC Refer to TYPE AND SCREEN Order, for Red Cell Product Data / Detail Normal 10/07/2023 [facility] TRANS NUM UNITS PACKED RBC Refer to TYPE AND SCREEN Order, for Red Cell Product Data / Detail Normal 10/07/2023 [facility] MAGNESIUM SERPL MCNC 2.0 mg/dL Normal 10/07/2023 1.7 - 2.8 [facility] MCHC RBC AUTO MCNC 34.3 g/dL Normal 10/07/2023 32 - 36 [facility] HCT VFR BLD AUTO 20.1 % Below low normal 10/07/2023 40 - 54 [facility] WBC NO. BLD AUTO 7.7 K/uL Normal 10/07/2023 4 - 10.5 [facility] MCH RBC QN AUTO 31.9 pg Normal 10/07/2023 25 - 33 [facility] HGB BLD MCNC 6.9 g/dL Below low normal 10/07/2023 13.5 - 18 [facility] MCV RBC AUTO 93.0 fL Normal 10/07/2023 78 - 100 [facility] PMV BLD AUTO 8.5 fL Normal 10/07/2023 7.4 - 11.4 [facility] EMPERATRIZ RDW RBC AUTO RTO 15.3 % Normal 10/07/2023 12.1 - 17.7 [facility] RBC NO. BLD AUTO 2.16 M/uL Below low normal 10/07/2023 4.7 - 6 [facility] PLATELET NO. BLD AUTO 150.0 K/uL Normal 10/07/2023 150 - 450 [facility] POTASSIUM SERPL SCNC 3.6 mmol/L Normal 10/07/2023 3.5 - 5.1 [facility] BUN SERPL MCNC 18.0 mg/dL Normal 10/07/2023 9 - 20 [facility] HCO3 SER SCNC 28.0 mmol/L Normal 10/07/2023 24 - 32 [facility] CHLORIDE SERPL SCNC 103.0 mmol/L Normal 10/07/2023 98 - 1 07 [facility] ANION GAP SERPL SCNC 6.0 mmol/L Normal 10/07/2023 5 - 14 [facility] Glomerular filtration rate/1.73 sq M. predicted 98.0 Normal 10/07/2023 60 - [facility] CREAT SERPL MCNC 0.6 mg/dL Below low normal 10/07/2023 0.7 - 1.3 [facility] SODIUM SERPL SCNC 137.0 mmol/L Normal 10/07/2023 135 - 14 5 [facility] GLUCOSE SERPL MCNC 110.0 mg/dL Normal 10/07/2023 70 - 199 [facility] CALCIUM SERPL MCNC 8.1 mg/dL Below low normal 10/07/2023 8.4 - 10.2 [facility] PT TIME PPP 13.7 sec Above high normal 10/07/2023 10.5 - 13 .3 [facility] INR PPP 1.1 Normal 10/07/2023 0.8 - 1.1 [facility] APTT TIME PPP 28.0 sec Normal 10/07/2023 25 - 37 [facility] EMPERATRIZ GLUCOSE BLDC GLUCOMTR MCNC 121.0 mg/dL Normal 10/07/2023 70 - 199 [facility] GLUCOSE BLDC GLUCOMTR MCNC 91.0 mg/dL Normal 10/06/2023 70 - 199 [facility] GLUCOSE BLDC GLUCOMTR MCNC 103.0 mg/dL Normal 10/06/2023 70 - 199 [facility] HGB BLD MCNC 7.4 g/dL Below low normal 10/06/2023 13.5 - 18 [facility] HCT VFR BLD AUTO 22.2 % Below low normal 10/06/2023 40 - 54 [facility] GLUCOSE BLDC GLUCOMTR MCNC 105.0 mg/dL Normal 10/06/2023 70 - 199 [facility] CA I SERPL SCNC 1.07 mmol/L Below low normal 10/06/2023 1.19 - 1.35 [facility] HGB BLD MCNC 7.2 g/dL Below low normal 10/06/2023 13.5 - 18 [facility] MCV RBC AUTO 93.5 fL Normal 10/06/2023 78 - 100 [facility] HCT VFR BLD AUTO 21.6 % Below low normal 10/06/2023 40 - 54 [facility] MCHC RBC AUTO MCNC 33.3 g/dL Normal 10/06/2023 32 - 36 [facility] MCH RBC QN AUTO 31.1 pg Normal 10/06/2023 25 - 33 [facility] PLATELET NO. BLD AUTO 132.0 K/uL Below low normal 10/06/2023 150 - 450 [facility] PMV BLD AUTO 8.4 fL Normal 10/06/2023 7.4 - 11.4 [facility] EMPERATRIZ RBC NO. BLD AUTO 2.31 M/uL Below low normal 10/06/2023 4.7 - 6 [facility] RDW RBC AUTO RTO 16.2 % Normal 10/06/2023 12.1 - 17.7 [facility] WBC NO. BLD AUTO 8.1 K/uL Normal 10/06/2023 4 - 10.5 [facility] MAGNESIUM SERPL MCNC 2.1 mg/dL Normal 10/06/2023 1.7 - 2.8 [facility] PHOSPHATE SERPL MCNC 1.8 mg/dL Below low normal 10/06/2023 2.5 - 4.5 [facility] APTT TIME PPP 30.0 sec Normal 10/06/2023 25 - 37 [facility] EMPERATRI[facility] PT TIME PPP 14.7 sec Above high normal 10/06/2023 10.5 - 13 .3 [facility] INR PPP 1.2 Above high normal 10/06/2023 0.8 - 1.1 C [facility] SODIUM SERPL SCNC 139.0 mmol/L Normal 10/06/2023 135 - 14 5 [facility] Glomerular filtration rate/1.73 sq M. predicted 93.0 Normal 10/06/2023 60 - [facility] CALCIUM SERPL MCNC 8.2 mg/dL Below low normal 10/06/2023 8.4 - 10.2 [facility] HCO3 SER SCNC 26.0 mmol/L Normal 10/06/2023 24 - 32 [facility] POTASSIUM SERPL SCNC 3.7 mmol/L Normal 10/06/2023 3.5 - 5.1 [facility] CHLORIDE SERPL SCNC 106.0 mmol/L Normal 10/06/2023 98 - 1 07 [facility] ANION GAP SERPL SCNC 7.0 mmol/L Normal 10/06/2023 5 - 14 [facility] GLUCOSE SERPL MCNC 105.0 mg/dL Normal 10/06/2023 70 - 199 [facility] CREAT SERPL MCNC 0.7 mg/dL Normal 10/06/2023 0.7 - 1.3 [facility] BUN SERPL MCNC 17.0 mg/dL Normal 10/06/2023 9 - 20 [facility] GLUCOSE BLDC GLUCOMTR MCNC 121.0 mg/dL Normal 10/06/2023 70 - 199 [facility] GLUCOSE BLDC GLUCOMTR MCNC 109.0 mg/dL Normal 10/05/2023 70 - 199 [facility] PCO2 BLDA 37.4 mmHg Normal 10/05/2023 35 - 45 [facility] SAO2% BLDA 99.0 % Above high normal 10/05/2023 95 - 98 [facility] CORRECTED TEMP 100.4 F Normal 10/05/2023 [facility] BASE DEFICIT BLDA SCNC 1.0 mmol/L Normal 10/05/2023 0 - 2 [facility] PH TEMP ADJ BLDA 7.398 Normal 10/05/2023 7.35 - 7.45 [facility] PO2 BLDA 119.0 mmHg Above high normal 10/05/2023 80 - 105 [facility] pCO2 temp adj Bld 39.1 mmHg Normal 10/05/2023 35 - 45 C [facility] PH BLDA 7.412 Normal 10/05/2023 7.35 - 7.45 [facility] pO2 temp adj Bld 125.0 mmHg Above high normal 10/05/2023 80 - 105 [facility] HCO3 BLDA SCNC 23.8 mmol/L Normal 10/05/2023 22 - 26 [facility] BLOOD GAS SITE ARTERIAL Normal 10/05/2023 [facility] O2/INSPIRED GAS SETTING VFR VENT 28.0 % Normal 10/05/2023 [facility] GLUCOSE BLDC GLUCOMTR MCNC 110.0 mg/dL Normal 10/05/2023 70 - 199 [facility] GLUCOSE BLDC GLUCOMTR MCNC 115.0 mg/dL Normal 10/05/2023 70 - 199 [facility] MARISEL RISK SCORE 0.09 Normal 10/05/2023 - 0.31 [facility] PCO2 BLDMV 50.0 mmHg Normal 10/05/2023 [facility] N PH BLDMV 7.32 Below low normal 10/05/2023 7.35 - 7.45 [facility] BASE DEFICIT BLDMV SCNC 1.0 mmol/L Normal 10/05/2023 [facility] HCO3 BLDMV SCNC 23.7 mmol/L Normal 10/05/2023 C [facility] SAO2% BLDMV 78.1 % Normal 10/05/2023 [facility] PO2 BLDMV 45.0 mmHg Normal 10/05/2023 [facility] O2/INSPIRED GAS SETTING VFR VENT FIO2 not recorded Normal 10/05/2023 [facility] BLOOD GAS SITE MIXED VENOUS Normal 10/05/2023 C [facility] MAGNESIUM SERPL MCNC 2.1 mg/dL Normal 10/05/2023 1.7 - 2.8 [facility] INR PPP 1.2 Above high normal 10/05/2023 0.8 - 1.1 C [facility] PT TIME PPP 14.5 sec Above high normal 10/05/2023 10.5 - 13 .3 [facility] APTT TIME PPP 28.0 sec Normal 10/05/2023 25 - 37 [facility] EMPERATRI[facility] PCO2 BLDA 50.0 mmHg Above high normal 10/05/2023 35 - 45 C [facility] PH BLDA 7.34 Below low normal 10/05/2023 7.35 - 7.45 [facility] HCO3 BLDA SCNC 25.4 mmol/L Normal 10/05/2023 22 - 26 [facility] PO2 BLDA 135.0 mmHg Above high normal 10/05/2023 80 - 105 [facility] BASE EXCESS BLDA SCNC 0.5 mmol/L Normal 10/05/2023 0 - 2 [facility] SAO2% BLDA 100.0 % Above high normal 10/05/2023 95 - 98 [facility] O2/INSPIRED GAS SETTING VFR VENT FIO2 not recorded Normal 10/05/2023 [facility] SPECIMEN TYPE ARTERIAL Normal 10/05/2023 [facility] EMPERATRI[facility] CA I SERPL SCNC 1.17 mmol/L Below low normal 10/05/2023 1.19 - 1.35 [facility] PHOSPHATE SERPL MCNC 2.4 mg/dL Below low normal 10/05/2023 2.5 - 4.5 [facility] ANION GAP SERPL SCNC 6.0 mmol/L Normal 10/05/2023 5 - 14 [facility] CALCIUM SERPL MCNC 7.9 mg/dL Below low normal 10/05/2023 8.4 - 10.2 [facility] CHLORIDE SERPL SCNC 108.0 mmol/L Above high normal 98 - 107 [facility] CREAT SERPL MCNC 0.8 mg/dL Normal 10/05/2023 0.7 - 1.3 [facility] POTASSIUM SERPL SCNC 3.6 mmol/L Normal 10/05/2023 3.5 - 5.1 [facility] SODIUM SERPL SCNC 140.0 mmol/L Normal 10/05/2023 135 - 14 5 [facility] HCO3 SER SCNC 26.0 mmol/L Normal 10/05/2023 24 - 32 [facility] BUN SERPL MCNC 15.0 mg/dL Normal 10/05/2023 9 - 20 [facility] GLUCOSE P FAST SERPL MCNC 129.0 mg/dL Above high normal 10/05/2023 70 - 99 [facility] Glomerular filtration rate/1.73 sq M. predicted 89.0 Normal 10/05/2023 60 - [facility] NEUTROPHILS NFR BLD AUTO 86.3 % Above high normal 10/05/2023 44 - 74 [facility] EOSINOPHIL NO. BLD AUTO 0.0 K/uL Normal 10/05/2023 0 - 0.5 [facility] LYMPHOCYTES NO. BLD AUTO 0.3 K/uL Below low normal 10/05/2023 1 - 3.2 [facility] NEUTROPHILS NO. BLD AUTO 6.6 K/uL Normal 10/05/2023 1.8 - 7.8 [facility] MONOCYTES NFR BLD AUTO 9.0 % Normal 10/05/2023 2 - 12 [facility] PLATELET NO. BLD AUTO 125.0 K/uL Below low normal 10/05/2023 150 - 450 [facility] BASOPHILS IN BLOOD BY AUTOMATED COUNT 0.0 K/uL Normal 10/05/2023 0 - 0.2 [facility] RBC NO. BLD AUTO 2.67 M/uL Below low normal 10/05/2023 4.7 - 6 [facility] HCT VFR BLD AUTO 24.7 % Below low normal 10/05/2023 40 - 54 [facility] BASOPHILS NFR BLD AUTO 0.4 % Normal 10/05/2023 0 - 2 [facility] RDW RBC AUTO RTO 15.5 % Normal 10/05/2023 12.1 - 17.7 [facility] PMV BLD AUTO 8.1 fL Normal 10/05/2023 7.4 - 11.4 [facility] EMPERATRIZ DIFFERENTIAL TYPE AUTOMATED Normal 10/05/2023 C [facility] HGB BLD MCNC 8.3 g/dL Below low normal 10/05/2023 13.5 - 18 [facility] LYMPHOCYTES NFR BLD AUTO 4.2 % Below low normal 10/05/2023 20 - 48 [facility] EOSINOPHIL NFR BLD AUTO 0.1 % Normal 10/05/2023 0 - 6 [facility] MCH RBC QN AUTO 30.9 pg Normal 10/05/2023 25 - 33 [facility] WBC NO. BLD AUTO 7.6 K/uL Normal 10/05/2023 4 - 10.5 [facility] MCV RBC AUTO 92.5 fL Normal 10/05/2023 78 - 100 [facility] MCHC RBC AUTO MCNC 33.4 g/dL Normal 10/05/2023 32 - 36 [facility] MONOCYTES NO. BLD AUTO 0.7 K/uL Normal 10/05/2023 0 - 0.8 [facility] GLUCOSE BLDC GLUCOMTR MCNC 120.0 mg/dL Normal 10/05/2023 70 - 199 [facility] GLUCOSE BLDC GLUCOMTR MCNC 99.0 mg/dL Normal 10/05/2023 70 - 199 [facility] GLUCOSE BLDC GLUCOMTR MCNC 138.0 mg/dL Normal 10/05/2023 70 - 199 [facility] CORRECTED TEMP 99.6 F Normal 10/05/2023 [facility] BLOOD GAS SITE ARTERIAL Normal 10/05/[address] [facility] BASE DEFICIT BLDA SCNC 3.0 mmol/L Above high normal 10/05/2023 0 - 2 [facility] HCO3 BLDA SCNC 22.2 mmol/L Normal 10/05/2023 22 - 26 [facility] PH TEMP ADJ BLDA 7.337 Below low normal 10/05/2023 7.35 - 7.45 [facility] SAO2% BLDA 95.0 % Normal 10/05/2023 95 - 98 [facility] N pO2 temp adj Bld 83.0 mmHg Normal 10/05/2023 80 - 105 [facility] pCO2 temp adj Bld 41.7 mmHg Normal 10/05/2023 35 - 45 C [facility] GLUCOSE BLDC GLUCOMTR MCNC 141.0 mg/dL Normal 10/05/2023 70 - 199 [facility] GLUCOSE BLDC GLUCOMTR MCNC 141.0 mg/dL Normal 10/05/2023 70 - 199 [facility] HCT VFR BLD AUTO 24.8 % Below low normal 10/05/2023 40 - 54 [facility] HGB BLD MCNC 8.6 g/dL Below low normal 10/05/2023 13.5 - 18 [facility] POTASSIUM SERPL SCNC 4.0 mmol/L Normal 10/05/2023 3.5 - 5.1 [facility] BASE DEFICIT BLDA SCNC 3.5 mmol/L Above high normal 10/05/2023 0 - 2 [facility] PO2 BLDA 123.0 mmHg Above high normal 10/05/2023 80 - 105 [facility] PCO2 BLDA 41.0 mmHg Normal 10/05/2023 35 - 45 [facility] PH BLDA 7.34 Below low normal 10/05/2023 7.35 - 7.45 [facility] HCO3 BLDA SCNC 22.2 mmol/L Normal 10/05/2023 22 - 26 [facility] SAO2% BLDA 99.6 % Above high normal 10/05/2023 95 - 98 [facility] O2/INSPIRED GAS SETTING VFR VENT 40.0 % Normal 10/05/2023 [facility] SPECIMEN TYPE ARTERIAL Normal 10/05/2023 [facility] EMPERATRIZ GLUCOSE SERPL MCNC 129.0 mg/dL Normal 10/05/2023 70 - 199 [facility] GLUCOSE BLDC GLUCOMTR MCNC 129.0 mg/dL Normal 10/05/2023 70 - 199 [facility] BLOOD GAS SITE ARTERIAL Normal 10/04/2023 [facility] O2/INSPIRED GAS SETTING VFR VENT 40.0 % Normal 10/04/2023 [facility] SAO2% BLDA 98.0 % Normal 10/04/2023 95 - 98 [facility] N pO2 temp adj Bld 110.0 mmHg Above high normal 10/04/2023 80 - 105 [facility] HCO3 BLDA SCNC 23.6 mmol/L Normal 10/04/2023 22 - CT [facility] pCO2 temp adj Bld 42.0 mmHg Normal 10/04/2023 35 - 45 C [facility] PH TEMP ADJ BLDA 7.358 Normal 10/04/2023 7.35 - 7.45 [facility] BASE DEFICIT BLDA SCNC 2.0 mmol/L Normal 10/04/2023 0 - 2 [facility] PO2 BLDA 108.0 mmHg Above high normal 10/04/2023 80 - 105 [facility] CORRECTED TEMP 99.2 F Normal 10/04/2023 [facility] PH BLDA 7.363 Normal 10/04/2023 7.35 - 7.45 [facility] AN PCO2 BLDA 41.4 mmHg Normal 10/04/2023 35 - 45 [facility] GLUCOSE BLDC GLUCOMTR MCNC 88.0 mg/dL Normal 10/05/2023 70 - 199 [facility] GLUCOSE BLDC GLUCOMTR MCNC 92.0 mg/dL Normal 10/04/2023 70 - 199 [facility] HCO3 BLDA SCNC 23.4 mmol/L Normal 10/04/2023 22 - CT [facility] PO2 BLDA 131.0 mmHg Above high normal 10/04/2023 80 - 105 [facility] SAO2% BLDA 100.0 % Above high normal 10/04/2023 95 - 98 [facility] O2/INSPIRED GAS SETTING VFR VENT FIO2 not recorded Normal 10/04/2023 [facility] PH BLDA 7.3 Below low normal 10/04/2023 7.35 - 7.45 [facility] BASE DEFICIT BLDA SCNC 2.0 mmol/L Normal 10/04/2023 0 - 2 [facility] PCO2 BLDA 51.0 mmHg Above high normal 10/04/2023 35 - 45 C [facility] SPECIMEN TYPE ARTERIAL Normal 10/04/2023 [facility] EMPERATRIZ HCO3 BLDA SCNC 23.5 mmol/L Normal 10/04/2023 22 - CT [facility] pO2 temp adj Bld 120.0 mmHg Above high normal 10/04/2023 80 - 105 [facility] PO2 BLDA 120.0 mmHg Above high normal 10/04/2023 80 - 105 [facility] SAO2% BLDA 98.0 % Normal 10/04/2023 95 - 98 [facility] N PH TEMP ADJ BLDA 7.294 Below low normal 10/04/2023 7.35 - 7.45 [facility] pCO2 temp adj Bld 48.3 mmHg Above high normal 10/04/2023 35 - 45 [facility] CORRECTED TEMP 98.5 F Normal 10/04/2023 [facility] BLOOD GAS SITE ARTERIAL Normal 10/04/2023 [facility] PH BLDA 7.293 Below low normal 10/04/2023 7.35 - 7.45 [facility] BASE DEFICIT BLDA SCNC 3.0 mmol/L Above high normal 10/04/2023 0 - 2 [facility] O2/INSPIRED GAS SETTING VFR VENT 40.0 % Normal 10/04/2023 [facility] PCO2 BLDA 48.5 mmHg Above high normal 10/04/2023 35 - 45 C [facility] GLUCOSE BLDC GLUCOMTR MCNC 123.0 mg/dL Normal 10/04/2023 70 - 199 [facility] INR PPP 1.2 Above high normal 10/04/2023 0.8 - 1.1 C [facility] PT TIME PPP 14.5 sec Above high normal 10/04/2023 10.5 - 13 .3 [facility] APTT TIME PPP 37.0 sec Normal 10/04/2023 25 - 37 [facility] EMPERATRI[facility] POTASSIUM SERPL SCNC 4.2 mmol/L Normal 10/04/2023 3.5 - 5.1 [facility] HGB BLD MCNC 9.6 g/dL Below low normal 10/04/2023 13.5 - 18 [facility] HCT VFR BLD AUTO 29.1 % Below low normal 10/04/2023 40 - 54 [facility] GLUCOSE SERPL MCNC 126.0 mg/dL Normal 10/04/2023 70 - 199 [facility] GLUCOSE BLDC GLUCOMTR MCNC 130.0 mg/dL Normal 10/04/2023 70 - 199 [facility] BASE DEFICIT BLDA SCNC 0.6 mmol/L Normal 10/04/2023 0 - 2 [facility] PCO2 BLDA 46.0 mmHg Above high normal 10/04/2023 35 - 45 C [facility] SAO2% BLDA 99.3 % Above high normal 10/04/2023 95 - 98 [facility] PO2 BLDA 113.0 mmHg Above high normal 10/04/2023 80 - 105 [facility] HCO3 BLDA SCNC 24.5 mmol/L Normal 10/04/2023 22 - 26 [facility] PH BLDA 7.35 Normal 10/04/2023 7.35 - 7.45 [facility] AN SPECIMEN TYPE ARTERIAL Normal 10/04/2023 [facility] EMPERATRIZ CORRECTED TEMP 97.3 F Normal 10/04/2023 [facility] SAO2% BLDA 96.0 % Normal 10/04/2023 95 - 98 [facility] N BASE DEFICIT BLDA SCNC 5.0 mmol/L Above high normal 10/04/2023 0 - 2 [facility] O2/INSPIRED GAS SETTING VFR VENT 50.0 % Normal 10/04/2023 [facility] BLOOD GAS SITE ARTERIAL Normal 10/04/2023 [facility] PH TEMP ADJ BLDA 7.303 Below low normal 10/04/2023 7.35 - 7.45 [facility] PCO2 BLDA 44.3 mmHg Normal 10/04/2023 35 - 45 [facility] PO2 BLDA 90.0 mmHg Normal 10/04/2023 80 - 105 [facility] pCO2 temp adj Bld 42.9 mmHg Normal 10/04/2023 35 - 45 C [facility] PH BLDA 7.293 Below low normal 10/04/2023 7.35 - 7.45 [facility] HCO3 BLDA SCNC 21.5 mmol/L Below low normal 10/04/2023 22 - 26 [facility] pO2 temp adj Bld 86.0 mmHg Normal 10/04/2023 80 - 105 [facility] GLUCOSE BLDC GLUCOMTR MCNC 123.0 mg/dL Normal 10/04/2023 70 - 199 [facility] PH BLDA 7.352 Normal 10/04/2023 7.35 - 7.45 [facility] PH TEMP ADJ BLDA 7.363 Normal 10/04/2023 7.35 - 7.45 [facility] BLOOD GAS SITE ARTERIAL Normal 10/04/2023 [facility] BASE DEFICIT BLDA SCNC 6.0 mmol/L Above high normal 10/04/2023 0 - 2 [facility] CORRECTED TEMP 97.2 F Normal 10/04/2023 [facility] pCO2 temp adj Bld 34.8 mmHg Below low normal 10/04/2023 35 - 45 [facility] PCO2 BLDA 36.0 mmHg Normal 10/04/2023 35 - 45 [facility] HCO3 BLDA SCNC 20.0 mmol/L Below low normal 10/04/2023 22 - 26 [facility] PO2 BLDA 136.0 mmHg Above high normal 10/04/2023 80 - 105 [facility] pO2 temp adj Bld 131.0 mmHg Above high normal 10/04/2023 80 - 105 [facility] O2/INSPIRED GAS SETTING VFR VENT 100.0 % Normal 10/04/2023 [facility] SAO2% BLDA 99.0 % Above high normal 10/04/2023 95 - 98 [facility] PCO2 BLDMV 53.0 mmHg Normal 10/04/2023 [facility] N PH BLDMV 7.25 Below low normal 10/04/2023 7.35 - 7.45 [facility] PO2 BLDMV 37.0 mmHg Normal 10/04/2023 [facility] BASE DEFICIT BLDMV SCNC 5.0 mmol/L Normal 10/04/2023 [facility] HCO3 BLDMV SCNC 20.3 mmol/L Normal 10/04/2023 C [facility] O2/INSPIRED GAS SETTING VFR VENT 100.0 % Normal 10/04/2023 [facility] SAO2% BLDMV 62.7 % Normal 10/04/2023 [facility] BLOOD GAS SITE MIXED VENOUS Normal 10/04/2023 C [facility] GLUCOSE BLDC GLUCOMTR MCNC 126.0 mg/dL Normal 10/04/2023 70 - 199 [facility] PO2 BLDA 157.0 mmHg Above high normal 10/04/2023 80 - 105 [facility] SAO2% BLDA 100.0 % Above high normal 10/04/2023 95 - 98 [facility] BASE DEFICIT BLDA SCNC 5.4 mmol/L Above high normal 10/04/2023 0 - 2 [facility] PH BLDA 7.33 Below low normal 10/04/2023 7.35 - 7.45 [facility] O2/INSPIRED GAS SETTING VFR VENT 100.0 % Normal 10/04/2023 [facility] PCO2 BLDA 38.0 mmHg Normal 10/04/2023 35 - 45 [facility] HCO3 BLDA SCNC 20.8 mmol/L Below low normal 10/04/2023 22 - 26 [facility] SPECIMEN TYPE ARTERIAL Normal 10/04/2023 [facility] PT TIME PPP 14.8 sec Above high normal 10/04/2023 10.5 - 13 .3 [facility] INR PPP 1.2 Above high normal 10/04/2023 0.8 - 1.1 C [facility] PHOSPHATE SERPL MCNC 2.8 mg/dL Normal 10/04/2023 2.5 - 4.5 [facility] DIFFERENTIAL TYPE AUTOMATED Normal 10/04/2023 C [facility] LYMPHOCYTES NO. BLD AUTO 0.5 K/uL Below low normal 10/04/2023 1 - 3.2 [facility] MCV RBC AUTO 92.4 fL Normal 10/04/2023 78 - 100 [facility] RAN MONOCYTES NO. BLD AUTO 0.9 K/uL Above high normal 10/04/2023 0 - 0.8 [facility] WBC NO. BLD AUTO 13.8 K/uL Above high normal 10/04/2023 4 - 10.5 [facility] MONOCYTES NFR BLD AUTO 6.5 % Normal 10/04/2023 2 - 12 [facility] RDW RBC AUTO RTO 14.5 % Normal 10/04/2023 12.1 - 17.7 [facility] BASOPHILS IN BLOOD BY AUTOMATED COUNT 0.1 K/uL Normal 10/04/2023 0 - 0.2 [facility] BASOPHILS NFR BLD AUTO 0.4 % Normal 10/04/2023 0 - 2 [facility] MCHC RBC AUTO MCNC 33.8 g/dL Normal 10/04/2023 32 - 36 [facility] PLATELET NO. BLD AUTO 134.0 K/uL Below low normal 10/04/2023 150 - 450 [facility] EOSINOPHIL NO. BLD AUTO 0.1 K/uL Normal 10/04/2023 0 - 0.5 [facility] HCT VFR BLD AUTO 31.9 % Below low normal 10/04/2023 40 - 54 [facility] HGB BLD MCNC 10.8 g/dL Below low normal 10/04/2023 13.5 - 18 [facility] LYMPHOCYTES NFR BLD AUTO 4.0 % Below low normal 10/04/2023 20 - 48 [facility] EOSINOPHIL NFR BLD AUTO 1.0 % Normal 10/04/2023 0 - 6 [facility] RBC NO. BLD AUTO 3.45 M/uL Below low normal 10/04/2023 4.7 - 6 [facility] NEUTROPHILS NO. BLD AUTO 12.1 K/uL Above high normal 10/04/2023 1.8 - 7.8 [facility] NEUTROPHILS NFR BLD AUTO 88.1 % Above high normal 10/04/2023 44 - 74 [facility] PMV BLD AUTO 8.0 fL Normal 10/04/2023 7.4 - 11.4 [facility] MCH RBC QN AUTO 31.3 pg Normal 10/04/2023 25 - 33 [facility] CA I SERPL SCNC 1.24 mmol/L Normal 10/04/2023 1.19 - 1.35 [facility] APTT TIME PPP 32.0 sec Normal 10/04/2023 25 - 37 [facility] ANION GAP SERPL SCNC 7.0 mmol/L Normal 10/04/2023 5 - 14 [facility] CHLORIDE SERPL SCNC 114.0 mmol/L Above high normal 98 - 107 [facility] SODIUM SERPL SCNC 142.0 mmol/L Normal 10/04/2023 135 - 14 5 [facility] Glomerular filtration rate/1.73 sq M. predicted 86.0 Normal 10/04/2023 60 - [facility] POTASSIUM SERPL SCNC 4.4 mmol/L Normal 10/04/2023 3.5 - 5.1 [facility] HCO3 SER SCNC 21.0 mmol/L Below low normal 10/04/2023 24 - 3 2 [facility] CREAT SERPL MCNC 0.9 mg/dL Normal 10/04/2023 0.7 - 1.3 [facility] GLUCOSE P FAST SERPL MCNC 128.0 mg/dL Above high normal 10/04/2023 70 - 99 [facility] BUN SERPL MCNC 24.0 mg/dL Above high normal 10/04/2023 9 - 2 0 [facility] CALCIUM SERPL MCNC 8.1 mg/dL Below low normal 10/04/2023 8.4 - 10.2 [facility] pO2 temp adj Bld 130.0 mmHg Above high normal 10/04/2023 80 - 105 [facility] HCT VFR BLDC 27.0 % Below low normal 10/04/2023 40 - 54 [facility] BLOOD GAS SITE ARTERIAL Normal 10/04/2023 [facility] pCO2 temp adj Bld 34.9 mmHg Below low normal 10/04/2023 35 - 45 [facility] SODIUM BLDC SCNC 143.0 mmol/L Normal 10/04/2023 135 - 145 [facility] SAO2% BLDA 99.0 % Above high normal 10/04/2023 95 - 98 [facility] CA I BLDC SCNC 1.4 mmol/L Above high normal 10/04/2023 1.19 - 1.35 [facility] POTASSIUM BLDC SCNC 4.0 mmol/L Normal 10/04/2023 3.5 - 5. 1 [facility] PH TEMP ADJ BLDA 7.361 Normal 10/04/2023 7.35 - 7.45 [facility] BASE DEFICIT BLDA SCNC 6.0 mmol/L Above high normal 10/04/2023 0 - 2 [facility] Service Cmmt XXX-Imp ISTAT Normal 10/04/2023 [facility] HGB BLDC MCNC 9.2 g/dL Below low normal 10/04/2023 13.5 - 1 8 [facility] O2/INSPIRED GAS SETTING VFR VENT 60.0 % Normal 10/04/2023 [facility] CORRECTED TEMP 98.6 F Normal 10/04[facility]20[facility] GLUCOMTR MCNC 160.0 mg/dL Normal 10/04/2023 70 - 199 [facility] HCO3 BLDA SCNC 19.7 mmol/L Below low normal 10/04/2023 22 - 26 [facility] BLOOD GAS SITE ARTERIAL Normal 10/04/2023 [facility] HGB BLDC MCNC 8.2 g/dL Below low normal 10/04/2023 13.5 - 1 8 [facility] GLUCOSE BLDC GLUCOMTR MCNC 127.0 mg/dL Normal 10/04/2023 70 - 199 [facility] HCT VFR BLDC 24.0 % Below low normal 10/04/2023 40 - 54 [facility] CA I BLDC SCNC 1.14 mmol/L Below low normal 10/04/2023 1.19 - 1.35 [facility] POTASSIUM BLDC SCNC 4.8 mmol/L Normal 10/04/2023 3.5 - 5. 1 [facility] SODIUM BLDC SCNC 142.0 mmol/L Normal 10/04/2023 135 - 145 [facility] PH TEMP ADJ BLDA 7.36 Normal 10/04/2023 7.35 - 7.45 [facility] SAO2% BLDA 100.0 % Above high normal 10/04/2023 95 - 98 [facility] O2/INSPIRED GAS SETTING VFR VENT 75.0 % Normal 10/04/2023 [facility] CORRECTED TEMP 98.6 F Normal 10/04/2023 [facility] Service Cmmt XXX-Imp ISTAT Normal 10/04/2023 [facility] pCO2 temp adj Bld 39.3 mmHg Normal 10/04/2023 35 - 45 C [facility] BASE DEFICIT BLDA SCNC 3.0 mmol/L Above high normal 10/04/2023 0 - 2 [facility] pO2 temp adj Bld 339.0 mmHg Above high normal 10/04/2023 80 - 105 [facility] HCO3 BLDA SCNC 22.2 mmol/L Normal 10/04/2023 22 - 26 [facility] SODIUM BLDC SCNC 142.0 mmol/L Normal 10/04/2023 135 - 145 [facility] CA I BLDC SCNC 1.16 mmol/L Below low normal 10/04/2023 1.19 - 1.35 [facility] HCO3 BLDA SCNC 23.2 mmol/L Normal 10/04/2023 22 - 26 [facility] pO2 temp adj Bld 323.0 mmHg Above high normal 10/04/2023 80 - 105 [facility] POTASSIUM BLDC SCNC 4.4 mmol/L Normal 10/04/2023 3.5 - 5. 1 [facility] SAO2% BLDA 100.0 % Above high normal 10/04/2023 95 - 98 [facility] HCT VFR BLDC 25.0 % Below low normal 10/04/2023 40 - 54 [facility] CORRECTED TEMP 98.6 F Normal 10/04/2023 [facility] GLUCOMTR MCNC 127.0 mg/dL Normal 10/04/2023 70 - 199 [facility] Service [facility] XXX-Imp ISTAT Normal 10/04/2023 [facility] O2/INSPIRED GAS SETTING VFR VENT 75.0 % Normal 10/04/2023 [facility] pCO2 temp adj Bld 41.8 mmHg Normal 10/04/2023 35 - 45 C [facility] PH TEMP ADJ BLDA 7.351 Normal 10/04/2023 7.35 - 7.45 [facility] HGB BLDC MCNC 8.5 g/dL Below low normal 10/04/2023 13.5 - 1 8 [facility] BASE DEFICIT BLDA SCNC 2.0 mmol/L Normal 10/04/2023 0 - 2 [facility] BLOOD GAS SITE ARTERIAL Normal 10/04/2023 [facility] FIBRINOGEN PPP-MCNC 221.0 mg/dL Normal 10/04/2023 145 - 4 15 [facility] PLATELET NO. BLD AUTO 184.0 K/uL Normal 10/04/2023 150 - 450 [facility] SAO2% BLDA 100.0 % Above high normal 10/04/2023 95 - 98 [facility] HCO3 BLDA SCNC 23.1 mmol/L Normal 10/04/2023 22 - 26 [facility] HCT VFR BLDC 27.0 % Below low normal 10/04/2023 40 - 54 [facility] BLOOD GAS SITE ARTERIAL Normal 10/04/2023 [facility] pCO2 temp adj Bld 40.3 mmHg Normal 10/04/2023 35 - 45 C [facility] Service [facility] XXX-Imp ISTAT Normal 10/04/2023 [facility] POTASSIUM BLDC SCNC 4.0 mmol/L Normal 10/04/2023 3.5 - 5. 1 [facility] O2/INSPIRED GAS SETTING VFR VENT 75.0 % Normal 10/04/2023 [facility] CORRECTED TEMP 98.6 F Normal 10/04/2023 [facility] HGB BLDC MCNC 9.2 g/dL Below low normal 10/04/2023 13.5 - 1 8 [facility] BASE DEFICIT BLDA SCNC 2.0 mmol/L Normal 10/04/2023 0 - 2 [facility] pO2 temp adj Bld 322.0 mmHg Above high normal 10/04/2023 80 - 105 [facility] SODIUM BLDC SCNC 142.0 mmol/L Normal 10/04/2023 135 - 145 [facility] CA I BLDC SCNC 1.17 mmol/L Below low normal 10/04/2023 1.19 - 1.35 [facility] GLUCOSE BLDC GLUCOMTR MCNC 125.0 mg/dL Normal 10/04/2023 70 - 199 [facility] PH TEMP ADJ BLDA 7.366 Normal 10/04/2023 7.35 - 7.45 [facility] SAO2% BLDA 100.0 % Above high normal 10/04/2023 95 - 98 [facility] CORRECTED TEMP 96.4 F Normal 10/04/2023 [facility] HCO3 BLDA SCNC 24.5 mmol/L Normal 10/04/2023 22 - 26 [facility] pCO2 temp adj Bld 44.5 mmHg Normal 10/04/2023 35 - 45 C [facility] PH TEMP ADJ BLDA 7.344 Below low normal 10/04/2023 7.35 - 7.45 [facility] SODIUM BLDC SCNC 142.0 mmol/L Normal 10/04/2023 135 - 145 [facility] O2/INSPIRED GAS SETTING VFR VENT 75.0 % Normal 10/04/2023 [facility] CA I BLDC SCNC 1.18 mmol/L Below low normal 10/04/2023 1.19 - 1.35 [facility] GLUCOSE BLDC GLUCOMTR MCNC 119.0 mg/dL Normal 10/04/2023 70 - 199 [facility] HCT VFR BLDC 26.0 % Below low normal 10/04/2023 40 - 54 [facility] Service [facility] XXX-Imp ISTAT Normal 10/04/2023 [facility] pO2 temp adj Bld 333.0 mmHg Above high normal 10/04/2023 80 - 105 [facility] POTASSIUM BLDC SCNC 3.9 mmol/L Normal 10/04/2023 3.5 - 5. 1 [facility] BASE DEFICIT BLDA SCNC 1.0 mmol/L Normal 10/04/2023 0 - 2 [facility] BLOOD GAS SITE ARTERIAL Normal 10/04/2023 [facility] HGB BLDC MCNC 8.8 g/dL Below low normal 10/04/2023 13.5 - 1 8 [facility] CORRECTED TEMP 96.3 F Normal 10/04/2023 [facility] PH TEMP ADJ BLDA 7.351 Normal 10/04/2023 7.35 - 7.45 [facility] pCO2 temp adj Bld 42.0 mmHg Normal 10/04/2023 35 - 45 C [facility] POTASSIUM BLDC SCNC 4.1 mmol/L Normal 10/04/2023 3.5 - 5. 1 [facility] BLOOD GAS SITE ARTERIAL Normal 10/04/2023 [facility] HCO3 BLDA SCNC 23.6 mmol/L Normal 10/04/2023 22 - 26 [facility] CA I BLDC SCNC 1.18 mmol/L Below low normal 10/04/2023 1.19 - 1.35 [facility] SODIUM BLDC SCNC 142.0 mmol/L Normal 10/04/2023 135 - 145 [facility] HGB BLDC MCNC 8.8 g/dL Below low normal 10/04/2023 13.5 - 1 8 [facility] Service [facility] XXX-Imp ISTAT Normal 10/04/2023 [facility] pO2 temp adj Bld 325.0 mmHg Above high normal 10/04/2023 80 - 105 [facility] BASE DEFICIT BLDA SCNC 2.0 mmol/L Normal 10/04/2023 0 - 2 [facility] SAO2% BLDA 100.0 % Above high normal 10/04/2023 95 - 98 [facility] O2/INSPIRED GAS SETTING VFR VENT 75.0 % Normal 10/04/2023 [facility] GLUCOSE BLDC GLUCOMTR MCNC 108.0 mg/dL Normal 10/04/2023 70 - 199 [facility] HCT VFR BLDC 26.0 % Below low normal 10/04/2023 40 - 54 [facility] SODIUM BLDC SCNC 143.0 mmol/L Normal 10/04/2023 135 - 145 [facility] pCO2 temp adj Bld 36.9 mmHg Normal 10/04/2023 35 - 45 C [facility] GLUCOSE BLDC GLUCOMTR MCNC 97.0 mg/dL Normal 10/04/2023 70 - 199 [facility] Service [facility] XXX-Imp ISTAT Normal 10/04/2023 [facility] HCO3 BLDA SCNC 22.0 mmol/L Normal 10/04/2023 22 - 26 CT [facility] SAO2% BLDA 100.0 % Above high normal 10/04/2023 95 - 98 [facility] O2/INSPIRED GAS SETTING VFR VENT 70.0 % Normal 10/04/2023 [facility] POTASSIUM BLDC SCNC 4.1 mmol/L Normal 10/04/2023 3.5 - 5. 1 [facility] BASE DEFICIT BLDA SCNC 3.0 mmol/L Above high normal 10/04/2023 0 - 2 [facility] HGB BLDC MCNC 8.5 g/dL Below low normal 10/04/2023 13.5 - 1 8 [facility] BLOOD GAS SITE ARTERIAL Normal 10/04/2023 [facility] PH TEMP ADJ BLDA 7.377 Normal 10/04/2023 7.35 - 7.45 [facility] CORRECTED TEMP 96.1 F Normal 10/04/2023 [facility] HCT VFR BLDC 25.0 % Below low normal 10/04/2023 40 - 54 [facility] CA I BLDC SCNC 1.17 mmol/L Below low normal 10/04/2023 1.19 - 1.35 [facility] pO2 temp adj Bld 278.0 mmHg Above high normal 10/04/2023 80 - 105 [facility] GLUCOSE BLDC GLUCOMTR MCNC 99.0 mg/dL Normal 10/04/2023 70 - 199 [facility] Service [facility] XXX-Imp ISTAT Normal 10/04/2023 [facility] pO2 temp adj Bld 161.0 mmHg Above high normal 10/04/2023 80 - 105 [facility] SAO2% BLDA 99.0 % Above high normal 10/04/2023 95 - 98 [facility] SODIUM BLDC SCNC 142.0 mmol/L Normal 10/04/2023 135 - 145 [facility] POTASSIUM BLDC SCNC 3.4 mmol/L Below low normal 10/04/2023 3 .5 - 5.1 [facility] HCO3 BLDA SCNC 24.1 mmol/L Normal 10/04/2023 22 - 26 [facility] BASE EXCESS BLDA SCNC 0.0 mmol/L Normal 10/04/2023 0 - 2 [facility] CA I BLDC SCNC 1.25 mmol/L Normal 10/04/2023 1.19 - 1.35 [facility] CORRECTED TEMP 98.6 F Normal 10/04/2023 [facility] HCT VFR BLDC 32.0 % Below low normal 10/04/2023 40 - 54 [facility] pCO2 temp adj Bld 37.2 mmHg Normal 10/04/2023 35 - 45 C [facility] O2/INSPIRED GAS SETTING VFR VENT 60.0 % Normal 10/04/2023 [facility] BLOOD GAS SITE ARTERIAL Normal 10/04/2023 [facility] HGB BLDC MCNC 10.9 g/dL Below low normal 10/04/2023 13.5 - 1 8 [facility] PH TEMP ADJ BLDA 7.42 Normal 10/04/2023 7.35 - 7.45 [facility] HCT VFR BLDC 33.0 % Below low normal 10/04/2023 40 - 54 [facility] CORRECTED TEMP 98.6 F Normal 10/04/2023 [facility] pCO2 temp adj Bld 34.1 mmHg Below low normal 10/04/2023 35 - 45 [facility] CA I BLDC SCNC 1.21 mmol/L Normal 10/04/2023 1.19 - 1.35 [facility] HCO3 BLDA SCNC 20.2 mmol/L Below low normal 10/04/2023 22 - 26 [facility] pO2 temp adj Bld 244.0 mmHg Above high normal 10/04/2023 80 - 105 [facility] BASE DEFICIT BLDA SCNC 5.0 mmol/L Above high normal 10/04/2023 0 - 2 [facility] POTASSIUM BLDC SCNC 3.0 mmol/L Below low normal 10/04/2023 3 .5 - 5.1 [facility] SODIUM BLDC SCNC 145.0 mmol/L Normal 10/04/2023 135 - 145 [facility] SAO2% BLDA 100.0 % Above high normal 10/04/2023 95 - 98 [facility] GLUCOSE BLDC GLUCOMTR MCNC 88.0 mg/dL Normal 10/04/2023 70 - 199 [facility] PH TEMP ADJ BLDA 7.38 Normal 10/04/2023 7.35 - 7.45 [facility] Service Cmmt XXX-Imp ISTAT Normal 10/04/2023 [facility] O2/INSPIRED GAS SETTING VFR VENT 60.0 % Normal 10/04/2023 [facility] HGB BLDC MCNC 11.2 g/dL Below low normal 10/04/2023 13.5 - 1 8 [facility] BLOOD GAS SITE ARTERIAL Normal 10/04/2023 [facility] INR PPP 1.0 Normal 10/04/2023 0.8 - 1.[facility] 11.7 sec Normal 10/04/2023 10.5 - 13.[address] [facility] APTT TIME PPP 33.0 sec Normal 10/04/2023 25 - [address] [facility] BLOOD BANK CMNT PATIENT-IMP Testing performed at [facility], [address] [place] [id number], Nayana Corrales MD Heating [employer]ing Mechanic, [facility] [id number] Normal 10/04/2023 [facility] ABO+RH GP BLD O POSITIVE Normal 10/04/2023 CTT SFR[facility] BLD GP AB SCN SERPL QL NEGATIVE Normal 10/04/2023 [facility] POTASSIUM SERPL SCNC 3.6 mmol/L Normal 10/04/2023 3.5 - 5.1 [facility] GLUCOSE BLDC GLUCOMTR MCNC 80.0 mg/dL Normal 10/04/2023 70 - 199 [facility] TRANS NUM UNITS PACKED RBC Refer to TYPE AND SCREEN Order, for Red Cell Product Data / Detail Normal 10/04/2023 [facility] Prot Ur Ql Strip.auto NEGATIVE Normal 09/27/2023 - [facility] Sp Gr Ur Strip.auto 1.013 Normal 09/27/2023 1.005 - 1.03 [facility] Glucose Ur Ql Strip.auto NEGATIVE Normal 09/27/2023 - [facility] Leukocyte esterase Ur Ql Strip.auto NEGATIVE Normal 09/27/2023 - [facility] Color Ur Auto YELLOW Normal 09/27/2023 [facility]ER[facility] Nitrite Ur Ql Strip.auto NEGATIVE Normal 09/27/2023 - [facility] Ketones Ur Ql Strip.auto NEGATIVE Normal 09/27/2023 - [facility] pH Ur Strip.auto 6.0 Normal 09/27/2023 4.5 - 8 CT [facility] Hgb Ur Ql Strip.auto NEGATIVE Normal 09/27/2023 - [facility] Clarity Ur Refract.auto CLEAR Normal 09/27/2023 [facility] SPECIMEN SOURCE XXX URINE CLEAN CATCH Normal 09/27/2023 [facility] PROT SERPL MCNC 6.6 g/dL Normal 09/27/2023 6.4 - 8.5 CTT [facility] ALT SERPL CCNC 5.0 U/L Below low normal 09/27/2023 7 - 52 [facility] AST SERPL CCNC 9.0 U/L Normal 09/27/2023 5 - 40 [facility] ALP SERPL-CCNC 102.0 U/L Normal 09/27/2023 34 - 104 [facility] ALBUMIN/GLOB SERPL MRTO 1.6 Normal 09/27/2023 [facility] ALBUMIN SERPL BCG MCNC 4.1 g/dL Normal 09/27/2023 3.5 - 5 [facility] BILIRUB DIRECT SERPL MCNC 0.1 mg/dL Normal 09/27/2023 0 - 0.2 [facility] BILIRUB SERPL MCNC 0.4 mg/dL Normal 09/27/2023 0.3 - 1 [facility] INR PPP 1.0 Normal 09/27/2023 0.8 - 1.1 [facility] APTT TIME PPP 32.0 sec Normal 09/27/2023 25 - 37 [facility] PT TIME PPP 11.4 sec Normal 09/27/2023 10.5 - 13.3 [facility] Hgb A1c MFr Bld HPLC 4.6 % Normal 09/28/2023 - 5.7 [facility] PREALB SERPL NEPH MCNC 23.3 mg/dL Normal 09/27/2023 17 - 34 [facility] TSH SerPl DL<=0.005 mIU/L-aCnc 0.07 uIU/mL Below low normal 09/27/2023 0.45 - 5.33 [facility] BLD GP AB SCN SERPL QL NEGATIVE Normal 09/27/2023 [facility] ABO+RH GP BLD O POSITIVE Normal 09/27/2023 [facility] BLOOD BANK CMNT PATIENT-IMP Testing performed at [facility], [address] [place] [id number], Nayana Corrales MD Heating [employer] Conditioning Mechanic, [facility] [id number] Normal 09/27/2023 [facility] T4 FREE SERPL MCNC 1.4 ng/dL Above high normal 09/27/2023 0. 5 - 1.3 [facility] LYMPHOCYTES NO. BLD AUTO 0.8 K/uL Below low normal 09/27/2023 1 - 3.2 [facility] NEUTROPHILS NFR BLD AUTO 73.7 % Normal 09/27/2023 44 - 74 [facility] MCV RBC AUTO 92.8 fL Normal 09/27/2023 78 - 100 [facility] RAN EOSINOPHIL NFR BLD AUTO 4.3 % Normal 09/27/2023 0 - 6 [facility] EOSINOPHIL NO. BLD AUTO 0.3 K/uL Normal 09/27/2023 0 - 0.5 [facility] RBC NO. BLD AUTO 4.06 M/uL Below low normal 09/27/2023 4.7 - 6 [facility] PLATELET NO. BLD AUTO 252.0 K/uL Normal 09/27/2023 150 - 450 [facility] MONOCYTES NO. BLD AUTO 0.5 K/uL Normal 09/27/2023 0 - 0.8 [facility] PMV BLD AUTO 7.7 fL Normal 09/27/2023 7.4 - 11.4 [facility]ER[facility] BASOPHILS NFR BLD AUTO 1.0 % Normal 09/27/2023 0 - 2 [facility] RDW RBC AUTO RTO 15.3 % Normal 09/27/2023 12.1 - 17.7 [facility] MCHC RBC AUTO MCNC 33.7 g/dL Normal 09/27/2023 32 - 36 [facility] NEUTROPHILS NO. BLD AUTO 4.3 K/uL Normal 09/27/2023 1.8 - 7.8 [facility] MONOCYTES NFR BLD AUTO 8.0 % Normal 09/27/2023 2 - 12 [facility] LYMPHOCYTES NFR BLD AUTO 13.0 % Below low normal 09/27/2023 20 - 48 [facility] HCT VFR BLD AUTO 37.7 % Below low normal 09/27/2023 40 - 54 [facility] MCH RBC QN AUTO 31.2 pg Normal 09/27/2023 25 - 33 [facility]TT [facility] BASOPHILS IN BLOOD BY AUTOMATED COUNT 0.1 K/uL Normal 09/27/2023 0 - 0.2 [facility] HGB BLD MCNC 12.7 g/dL Below low normal 09/27/2023 13.5 - 18 [facility] WBC NO. BLD AUTO 5.8 K/uL Normal 09/27/2023 4 - 10.5 CT [facility] DIFFERENTIAL TYPE AUTOMATED Normal 09/27/2023 C [facility] ANION GAP SERPL SCNC 8.0 mmol/L Normal 09/27/2023 5 - 14 [facility] HCO3 SER SCNC 27.0 mmol/L Normal 09/27/2023 24 - 32 CTT [facility] SODIUM SERPL SCNC 139.0 mmol/L Normal 09/27/2023 135 - 14 5 [facility] Glomerular filtration rate/1.73 sq M. predicted 89.0 Normal 09/27/2023 60 - [facility] CALCIUM SERPL MCNC 8.7 mg/dL Normal 09/27/2023 8.4 - 10.2 [facility] GLUCOSE SERPL MCNC 78.0 mg/dL Normal 09/27/2023 70 - 199 [facility] BUN SERPL MCNC 22.0 mg/dL Above high normal 09/27/2023 9 - 2 0 [facility] POTASSIUM SERPL SCNC 3.4 mmol/L Below low normal 09/27/2023 3.5 - 5.1 [facility] CREAT SERPL MCNC 0.8 mg/dL Normal 09/27/2023 0.7 - 1.3 CT [facility] CHLORIDE SERPL SCNC 104.0 mmol/L Normal 09/27/2023 98 - 1 07 [facility] BNP BLD MCNC 257.0 pg/mL Above high normal 09/27/2023 0 - 10 0 [facility] HCT VFR BLD AUTO 36.6 % Below low normal 08/03/2023 40 - 54 [facility] HGB BLD MCNC 12.2 g/dL Below low normal 08/03/2023 13.5 - 18 [facility] BUN SERPL MCNC 19.0 mg/dL Normal 08/03/2023 9 - 20 CTT [facility] Glomerular filtration rate/1.73 sq M. predicted 76.0 Normal 08/03/2023 60 - [facility] CHLORIDE SERPL SCNC 106.0 mmol/L Normal 08/03/2023 98 - 1 07 [facility] CREAT SERPL MCNC 1.0 mg/dL Normal 08/03/2023 0.7 - 1.3 CT [facility] ANION GAP SERPL SCNC 4.0 mmol/L Below low normal 08/03/2023 5 - 14 [facility] CALCIUM SERPL MCNC 8.7 mg/dL Normal 08/03/2023 8.4 - 10.2 [facility] GLUCOSE P FAST SERPL MCNC 99.0 mg/dL Normal 08/03/2023 70 - 99 [facility] SODIUM SERPL SCNC 139.0 mmol/L Normal 08/03/2023 135 - 14 5 [facility] POTASSIUM SERPL SCNC 3.1 mmol/L Below low normal 08/03/2023 3.5 - 5.1 [facility] HCO3 SER SCNC 29.0 mmol/L Normal 08/03/2023 24 - 32 [facility] BLOOD BANK CMNT PATIENT-IMP Testing performed at [facility], [address] [place] [id number], Nayana Corrales MD He[employer]ing Mechanic, [facility] [id number] Normal 08/02/2023 [facility] ABO+RH GP BLD O POSITIVE Normal 08/02/2023 [facility] BLOOD BANK CMNT PATIENT-IMP Testing performed at [facility], [address] [place] [id number], Nayana Corrales MD [employer], [facility] [id number] Normal 08/02/2023 [facility] ABO+RH GP BLD O POSITIVE Normal 08/02/2023 [facility] BLD GP AB SCN SERPL QL NEGATIVE Normal 08/02/2023 [facility] CHLORIDE SERPL SCNC 106.0 mmol/L Normal 08/02/2023 98 - 1 07 [facility] POTASSIUM SERPL SCNC 3.4 mmol/L Below low normal 08/02/2023 3.5 - 5.1 [facility] SODIUM SERPL SCNC 142.0 mmol/L Normal 08/02/2023 135 - 14 5 [facility] CREAT SERPL MCNC 1.0 mg/dL Normal 08/02/2023 0.7 - 1.3 [facility] CALCIUM SERPL MCNC 9.5 mg/dL Normal 08/02/2023 8.4 - 10.2 [facility] ANION GAP SERPL SCNC 8.0 mmol/L Normal 08/02/2023 5 - 14 [facility] Glomerular filtration rate/1.73 sq M. predicted 76.0 Normal 08/02/2023 60 - [facility] BUN SERPL MCNC 21.0 mg/dL Above high normal 08/02/2023 9 - 2 0 [facility] GLUCOSE SERPL MCNC 79.0 mg/dL Normal 08/02/2023 70 - 199 [facility] HCO3 SER SCNC 28.0 mmol/L Normal 08/02/2023 24 - 32 [facility] PREALB SERPL NEPH MCNC 23.2 mg/dL Normal 07/21/2023 17 - 34 [facility] GLUCOSE SERPL MCNC 84.0 mg/dL Normal 07/20/2023 70 - 199 [facility] PROT SERPL MCNC 6.8 g/dL Normal 07/20/2023 6.4 - 8.5 [facility] SODIUM SERPL SCNC 143.0 mmol/L Normal 07/20/2023 135 - 14 5 [facility] CHLORIDE SERPL SCNC 107.0 mmol/L Normal 07/20/2023 98 - 1 07 [facility] AST SERPL CCNC 10.0 U/L Normal 07/20/2023 5 - 40 [facility] CALCIUM SERPL MCNC 9.5 mg/dL Normal 07/20/2023 8.4 - 10.2 [facility] ALBUMIN SERPL BCG MCNC 4.1 g/dL Normal 07/20/2023 3.5 - 5 [facility] BUN SERPL MCNC 19.0 mg/dL Normal 07/20/2023 9 - 20 [facility] BILIRUB SERPL MCNC 0.6 mg/dL Normal 07/20/2023 0.3 - 1 [facility] ALT SERPL CCNC 11.0 U/L Normal 07/20/2023 7 - 52 [facility] POTASSIUM SERPL SCNC 3.2 mmol/L Below low normal 07/20/2023 3.5 - 5.1 [facility] Glomerular filtration rate/1.73 sq M. predicted 76.0 Normal 07/20/2023 60 - [facility] HCO3 SER SCNC 26.0 mmol/L Normal 07/20/2023 24 - 32 [facility] CREAT SERPL MCNC 1.0 mg/dL Normal 07/20/2023 0.7 - 1.3 [facility] ALP SERPL-CCNC 103.0 U/L Normal 07/20/2023 34 - 104 [facility] ANION GAP SERPL SCNC 10.0 mmol/L Normal 07/20/2023 5 - 14 [facility] MCV RBC AUTO 93.8 fL Normal 07/20/2023 78 - 100 [facility] MG EOSINOPHIL NO. BLD AUTO 0.2 K/uL Normal 07/20/2023 0 - 0.5 [facility] MONOCYTES NO. BLD AUTO 0.4 K/uL Normal 07/20/2023 0 - 0.8 [facility] NEUTROPHILS NO. BLD AUTO 3.3 K/uL Normal 07/20/2023 1.8 - 7.8 [facility] WBC NO. BLD AUTO 4.8 K/uL Normal 07/20/2023 4 - 10.5 [facility] NEUTROPHILS NFR BLD AUTO 69.6 % Normal 07/20/2023 44 - 74 [facility] PMV BLD AUTO 8.4 fL Normal 07/20/2023 7.4 - 11.4 [facility] EMG RDW RBC AUTO RTO 14.9 % Normal 07/20/2023 12.1 - 17.7 [facility] MCHC RBC AUTO MCNC 33.8 g/dL Normal 07/20/2023 32 - 36 [facility] RBC NO. BLD AUTO 4.42 M/uL Below low normal 07/20/2023 4.7 - 6 [facility] LYMPHOCYTES NFR BLD AUTO 16.5 % Below low normal 07/20/2023 20 - 48 [facility] PLATELET NO. BLD AUTO 258.0 K/uL Normal 07/20/2023 150 - 450 [facility] BASOPHILS IN BLOOD BY AUTOMATED COUNT 0.1 K/uL Normal 07/20/2023 0 - 0.2 [facility] MCH RBC QN AUTO 31.7 pg Normal 07/20/2023 25 - 33 [facility] BASOPHILS NFR BLD AUTO 1.8 % Normal 07/20/2023 0 - 2 [facility] HGB BLD MCNC 14.0 g/dL Normal 07/20/2023 13.5 - 18 [facility] MG LYMPHOCYTES NO. BLD AUTO 0.8 K/uL Below low normal 07/20/2023 1 - 3.2 [facility] HCT VFR BLD AUTO 41.5 % Normal 07/20/2023 40 - 54 [facility] MONOCYTES NFR BLD AUTO 7.4 % Normal 07/20/2023 2 - 12 [facility] EOSINOPHIL NFR BLD AUTO 4.7 % Normal 07/20/2023 0 - 6 [facility] DIFFERENTIAL TYPE AUTOMATED Normal 07/20/2023 C [facility] History of Medication Use Medication Directions Dispensed Refills Start Date End Date Stat Protonix 40 mg tablet,delayed release 40 mg by oral route. 08/03/2023 09/03/2023 completed Senokot 8.6 mg tablet 1 {tbl} by oral route. 08/03/2023 08/18/2023 completed doxycycline hyclate 100 mg capsule 100 mg by oral route. 08/03/2023 08/11/2023 completed oxycodone 5 mg tablet,oral ONLY (not feeding tubes) 5 mg every 4 hours by oral route. 08/03/2023 active Zofran 4 mg tablet 4 mg every 6 hours by oral route. 08/03/2023 active albuterol sulfate 2.5 mg/3 mL (0.083 %) solution for nebulization active albuterol sulfate HFA 90 mcg/actuation aerosol inhaler active amlodipine 2.5 mg tablet TAKE 1 TABLET BY MOUTH DAILY active amoxicillin 875 mg-potassium clavulanate 125 mg tablet TAKE 1 TABLET BY MOUTH TWICE DAILY FOR 5 DAYS active fluoxetine 40 mg capsule TAKE 2 CAPSULES BY MOUTH EVERY DAY active metoprolol tartrate 25 mg tablet active pantoprazole 40 mg tablet,delayed release 40 mg by oral route. active potassium chloride ER 20 mEq tablet,extended release(part/cryst) TAKE 1 TABLET BY MOUTH TWICE DAILY FOR 5 DAYS active prednisone 20 mg tablet active IBUPROFEN PO Take 300 mg by mouth daily. active Problems Problem Status Onset Date Problem Type Date of Resolution Source Recurrent subluxation of the patella active 2023-07-06 ProblemAct ENS_AONECT Recurrent falls active 2023-07-21 ProblemAct EN S_AONECT Essential hypertension active 2021-11-19 ProblemAct ENS_AONECT Obstructive sleep apnea syndrome active 2023-07-21 ProblemAct ENS_AONECT History of hypertension active 2023-07-21 ProblemAct ENS_AONECT Asthma active 2023-07-21 ProblemAct ENS_AONE CT Hypokalemia active 2023-07-21 ProblemAct ENS_AO NECT Tremor active 2023-07-21 ProblemAct ENS_AONE CT Spinal stenosis active 2023-07-21 ProblemAct EN S_AONECT Cyst of kidney active 2023-07-21 ProblemAct ENS _AONECT Severe mitral valve regurgitation active 2023-07-21 ProblemAct ENS_AONECT Bipolar affective disorder, current episode depression active 2023-07-21 ProblemAct ENS_AONEC T 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 2023-08-02 ProblemAct ENS_AONECT Osteoarthritis of left knee joint active 2022-03-13 ProblemAct ENS_AONECT Urgent desire to urinate active 2023-07-21 ProblemAct ENS_AONECT History of hypothyroidism active 2023-07-21 ProblemAct ENS_AONECT Asthma active 2023-07-21 ProblemAct CTTHNEMG Tremor active 2023-07-21 ProblemAct CTTHNEMG Primary hypertension active 2021-11-19 ProblemAct CTTHNEMG Urinary urgency active 2023-07-[address] THNEMG History of hypertension active 2023-07-21 ProblemAct CTTHNEMG Lower extremity edema active EncounterDiagnosisAct CTTHNE MG Recurrent subluxation of patella, left knee active EncounterDiagnosisAct CTTHNEMG JUANI (obstructive sleep apnea) active 2023-07-21 ProblemAct CTTHNEMG Frequent falls active 2023-07-21 ProblemAct CTT HNEMG Osteoarthritis of left knee active 2022-03-13 ProblemAct CTTHNEMG Renal cyst active 2023-07-21 ProblemAct CTTHNEM G Spinal stenosis active 2023-07-[address] THNEMG Hypokalemia active 2023-07-21 ProblemAct CTTHNE MG Bipolar affective disorder, current episode depressed active 2023-07-21 ProblemAct CTTHNEMG Severe mitral regurgitation active 2023-07-21 ProblemAct CTTHNEMG History of hypothyroidism active 2023-07-21 ProblemAct CTTHNEMG Immunizations Vaccine Date Source Lot Number Status SARS-COV-2 (COVID-19) vaccin e, mRNA, spike protein, LNP, preservative free, 30 mcg/0.3mL dose 03/14/2022 ENS_AONECT [id number] completed Encounters Encounter Type Encounter Reason Primary Diagnosis Location Date [facility] 05/26/2024 Ambulatory [facility] 11/22/2023 Ambulatory [facility] 11/16/2023 Ambulatory [facility] 10/14/2023 Inpatient Nonrheumatic mitral (valve) insufficiency Nonrheumatic mitral (valve) insufficiency [facility] [place] [facility] 09/30/2023 Ambulatory Encounter for other preprocedural examination Encounter for other preprocedural examination [facility] [place]23 Amb[place] [facility] [place]/2023 Ambulatory Shortness of breath Shortness of breath [facility] 09/27/2023 Ambulatory [facility] 08/27/2023 Ambulatory [facility] 08/17/2023 Inpatient Encounter for other preprocedural examination Encounter for other preprocedural examination [facility] [place]2023 [facility] 07/13/2023 Ambulatory [facility] 07/06/2023 Ambulatory [facility] 06/19/2023 Ambulatory [facility] 05/15/2023 Ambulatory [facility] 02/25/2023 Ambulatory [facility] 01/22/2023 Ambulatory [facility] 12/22/2022 Ambulatory [facility] 10/21/2022 Care Team Organization Name Specialty Phone Email Start Date End Da lou [facility] 12/09/2024 [facility] 09/[place]/2023 [facility] 07/13/2023 2025 [facility] 07/13/2023 07/13/2023 [facility] 06/20/2022 04/03/2024
--- OUTSIDE RECORDS SUMMARY | 2025-02-28 14:26 | XMS_ITS | Patient Health Record ---
Author Organization [facility] Address [address] [place] [address] Care Team Providers Care Personal Injury Law Specialist Name Role Phone Mario Alberto Isaac M.D. Primary Care Provider Unavailable Matthew Barahona Unavailable [phone] Allergies No Known Allergies Reason For Referral No Information Medications Medication SIG (Take, Route, Frequency, Duration) Notes Start Date End Date Status FLUoxetine HCl 20 MG 1 capsule in the mo rning Orally Once a day Active Levothyroxine Sodium 150 MCG 1 tablet on an empty stomach in the morning Orally Once a day Active Aspir-81 81 MG 1 tablet Orally Once a day Active Immunizations Vaccine Route Administration Date Status Comme nts COVID-19 Pfizer BioNTech Vaccine Unknown 10/09/2020 Adm inistered COVID-19 Pfizer BioNTech Vaccine Unknown 10/30/2020 Adm inistered Influenza Unknown 04/27/2019 Administered Social History Tobacco Use: Social History Observation Description Date Details (start date - stop date) Never Smoker NA - NA Tobacco Use/Smoking Question Answer Notes Are you a: nonsmoker Additional Findings: Tobacco Non-User Current no n-smoker Alcohol Screen Question Answer Notes Did you have a drink containing alcohol in the p ast year? No Points 0 Interpretation Negative Tobacco use other than smoking: Question Answer Notes Are you an other tobacco user? No Problems Problem Type SNOMED Code ICD Code Onset Dates Problem Status W/U Status Risk Notes Problem Tinea unguium (B35.1) Active confirmed Problem Plantar wart (25283265) Plantar wart (B07.0) Active confirmed Chronic Plan Of Treatment Pending Test Test Name Order Date NAIL, 6 OR MORE 05/17/2017 [id number] NAIL, 6 OR MORE 07/26/2017 [id number] NAIL, 6 OR MORE 10/06/2017 [id number] NAIL, 6 OR MORE 12/29/2017 58340-DSVCHNV NAIL, 6 OR MORE 03/10/2018 [id number] NAIL, 6 OR MORE 06/09/2018 13577-UZBGKZS NAIL, 6 OR MORE 09/08/2018 23603-OXJFSUK NAIL, 6 OR MORE 12/08/2018 59771-MBDUOTQ NAIL, 6 OR MORE 03/09/2019 98551-KMGEUBU NAIL, 6 OR MORE 06/28/2019 70075-MOLJNVB NAIL, 6 OR MORE 09/28/2019 73309-AIUJZUF NAIL, 6 OR MORE 02/12/2020 72083-ZLETVGW NAIL, 6 OR MORE 08/21/2020 64109-OBUGDYY NAIL, 6 OR MORE 11/20/2020 91395-Yyrm Destruction, 14 11/20/2020 20546-Apmu Destruction, 14 03/10/2018 84650-Ivwi Destruction, -14 08/21/2020 91792-Jyvl Destruction, -14 02/12/2020 33495-Nhsd Destruction, 14 09/28/2019 30914-Szhx Destruction, 14 06/28/2019 20758-Wmgn Destruction, 14 03/09/2019 58802-Mwwf Destruction, 14 12/08/2018 26462-Ukcz Destruction, -14 09/08/2018 37064-Fska Destruction, 14 06/09/2018 04957-Qyad Destruction, 14 12/29/2017 45800-Klqm Destruction, 14 10/06/2017 27460-Ksbj Destruction, 14 07/26/2017 63938-Bnsr Destruction, 14 09/07/2016 50320-Mmre Destruction, 14 12/07/2016 02026-Uryj Destruction, 14 03/08/2017 40595-Zjfs Destruction, -14 05/17/2017 05700-Tlsenpte Plate 03/10/2018 Insurance Providers Payer Name Payer Address Payer Phone Subscriber Number Group Number Insured Name Patient Relationship to Insured Coverage Start Date Coverage End Date Medicare [facility] [address] [place] [address] [id number] Lukasz Roberts Self - patient is the insured [address] [place], [place] [id number] [address] [place] [id number] [phone] [id number] Lukasz Roberts Self - patient is the insured Medical (General) History Medical History History ICD Code Anxiety disorder asthma Back pain Depression Joint implants/screws Measles Thyroid disorder Surgical History Surgery Date(Month/Year) knee surgery, left 2008 tonsillectomy appendectomy Hospitalization History Reason Date(Month/Year) [facility] 07/15/16-07/27/16
--- OUTSIDE RECORDS SUMMARY | 2025-02-28 14:26 | XMS_ITS | Clinical Summary ---
Author Organization [facility] Address [address] [place] [address] Care Team Providers Care Shelf Filler Name Role Phone Mario Alberto Isaac MD Primary Care Provider [phone] Allergies Active Allergy Reactions Criticality Noted Date Comments Animal Dander Shortness Of Breath High 09/27/2023 cats [place]-Containing Products 12/02/2023 Dust Shortness Of Breath High 09/27/2023 Grass Shortness Of Breath High 09/27/2023 Seasonal 12/02/2023 Medications Medication Sig Dispensed Refills Start Date End Date Status Multiple Vitamin (multi-vitamin) Take 1 tablet by mouth daily. 0 08/18/2021 Active temazepam (RESTORIL) 15 MG capsule Take 2 capsules (30 mg total) by mouth every night at bedtime as needed. 0 09/25/2021 Active FLUoxetine (PROzac) 40 MG capsule Take 2 capsules (80 mg total) by mouth daily. 0 01/20/2022 Active Cyanocobalamin (VITAMIN B-12 PO) Take 1 tablet by mouth daily. 0 Active carbidopa-levodopa (Sinemet) 25-100 MG per tablet Take 1.5 tablets by mouth 4 (four) times a day. 0 07/10/2023 Active levothyroxine (SYNTHROID) tablet 150 mcg Take 1 tablet (150 mcg total) by mouth every morning. Take 150mcg Wednesday-Wednesday, 300mcg Wednesday and Wednesday 0 06/09/2023 Active tamsulosin (FLOMAX) 0.4 MG CAPS Take 1 capsule (0.4 mg total) by mouth every night at bedtime. 0 06/24/2023 Active aspirin EC 81 MG tablet Take 1 tablet (81 mg total) by mouth daily. 0 Active buPROPion (WELLBUTRIN XL) 300 MG 24 hr tablet Take 1 tablet (300 mg total) by mouth daily. 0 Active acetaminophen (TYLENOL) 325 MG tablet Take 2 tablets (650 mg total) by mouth every 6 (six) hours as needed. 120 tablet 0 10/11/2023 Active metoprolol tartrate (LOPRESSOR) 25 MG tablet Take 1 tablet (25 mg total) by mouth 2 (two) times a day. 60 tablet 1 10/11/2023 Active warfarin (COUMADIN) 5 MG tablet Take 1 tablet (5 mg total) by mouth daily. 30 tablet 1 10/11/2023 Active vitamin D3 (cholecalciferol) 25 MCG (1000 UT) tablet Take 1 tablet (25 mcg total) by mouth daily. 0 Active albuterol (Proventil HFA) 108 (90 Base) MCG/ACT inhaler Inhale 2 puffs into the lungs every 6 (six) hours as needed for wheezing. 0 Active amLODIPine (NORVASC) tablet 2.5 mg Take 1 tablet (2.5 mg total) by mouth daily. 0 Active ascorbic acid (VITAMIN C) 500 MG tablet Take 1 tablet (500 mg total) by mouth daily. 0 Active Active Problems Problem Noted Date Diagnosed Date Other specified anemias 12/02/2023 S/P MVR (mitral valve repair) 10/05/2023 Acute on chronic diastolic CHF (congestive heart failure) 10/05/2023 Acute blood loss anemia 10/05/2023 Mitral regurgitation 09/17/2023 Status post revision of total knee replacement, left 08/02/2023 History of hypertension 07/21/2023 History of hypothyroidism 07/21/2023 Renal cyst 07/21/2023 Urinary urgency 07/21/2023 JUANI (obstructive sleep apnea) 07/21/2023 Asthma 07/21/2023 Frequent falls 07/21/2023 Spinal stenosis 07/21/2023 Bipolar affective disorder, current episode depr essed 07/21/2023 Severe mitral regurgitation 07/21/2023 Tremor 07/21/2023 Hypokalemia 07/21/2023 Osteoarthritis of left knee 03/13/2022 Primary hypertension 11/19/2021 Immunizations Name Administration Dates Next Due Covid-19 (esolidar) Dilution Required 03/14/2022 Family History Medical History Relation Name Comments COPD Father Cancer Mother Leukemia Neuropathy Sister Demylinating Po lyneuropathy Other Sister ; MGUS Raynaud syndrome Sister Liver disease Son fatty liver Osteoarthritis Son Relation Name Status Comments Father (Age 67) COPD Mother (Age 67) LEUKEMIA Sister Alive Unknown hx Son Alive Social History Tobacco Use Types Packs/Day Years Used Date Smoking Tobacco: Former Cigarettes 2 3 1 960 - 1963 Smokeless Tobacco: Never Tobacco Cessation:Counseling Given: Not Answered Alcohol Use Standard Drinks/Week Comments Not Currently 0 (1 standard drink = 0.6 oz pur e alcohol) Quit 07/15/2023 Sex and Gender Information Value Date Recorded Sex Assigned at Male 11/10/2021 4:19 PM EDT Gender Identity Male 11/10/2021 4:19 PM EDT Sexual Orientation Not on file Job Start Date Occupation Industry Not on file Not on file Not on file Last Filed Vital Signs Vital Sign Reading Time Taken Comments Blood Pressure 134/68 12/02/2023 3:08 PM EDT Pulse 74 12/02/2023 3:08 PM EDT Temperature 36.6 C (97.9 F) 12/02/2023 3:08 PM EDT Respiratory Rate 18 10/28/2023 3:46 PM EDT Oxygen Saturation 98% 12/02/2023 3:08 PM EDT Inhaled Oxygen Concentration - - Weight 76.1 kg (167 lb 12.8 oz) 12/02/2023 3:08 PM EDT Height 177.8 cm (5' 10 ) 12/02/2023 3:08 PM EDT Body Mass Index 24.08 12/02/2023 3:08 PM EDT Plan of Treatment Health Maintenance Due Date Last Done Comments Depression Screening 1955 Preventative Health Evaluation 1961 Shingrix-Zoster Vaccine (1 of 2) 1993 Fall Risk Assessment 02/28/2008 RSV Adult > 60+ Yrs or (1 - 1-dose 75+ series) 2018 COVID-19 Vaccine ( season) 2024 03/14/2022, 10/30/2020, 10/09/2020 BMI Counseling 07/20/2024 07/20/2023 Influenza Vaccine (#1) 2025 2, 08/25/2021, 06/03/2020, Additional history exists DTap / Tdap / Td (2 - Td or Tdap) 09/18/2026 09/18/2016 Pneumococcal Vaccine Completed 05/24/2019, 03/22/20 18 Hepatitis B Vaccines Aged Out No long er eligible based on patient's age to complete this topic RSV Ped < 20 months Aged Out No longe r eligible based on patient's age to complete this topic Medical Devices Implanted Type Area Language Path Device Identifier Shelf Expiration Date Model / Serial / Lot ++Dnu+Disc Use [id number] Hemostat Absorb 2x14in Surgicel [facility] 1950-420188 - [id number] Implanted:Qt y: 1 on 10/04/2023 by Howard Young MD at [facility] Hemostatic Agent N/A: Heart [facility] [employer] 10/14/20271950 / / [id number] Cement Bone Surg Simplex Radiopq Stry-Howm 8546-0-094-1 28095 - [id number] Implanted:Qt y: 1 on 12/05/2021 by Nura Otero MD at [facility] Right: Knee [facility] [id number] 01/14/2024 6191-1-0 10 / / [id number] Cement Bone Surg Simplex Radiopq Stry-Howm 2854-5-854-1 60065 - [id number] Implanted:Qt y: 1 on 12/05/2021 by Nura Otero MD at [facility] Right: Knee [facility] [id number] 01/14/2024 6191-1-0 10 / / [id number] Knee Insrt Tib Baseplate Sz 5 Stry-How 9671-C-208-5 79066 - [id number] Implanted:Qt y: 1 on 12/05/2021 by Nura Otero MD at [facility] Right: Knee [facility] [id number] 09/04/2026 5521-B-5 00 / / [id number] Knee Compon Fem Cmnt Sz5 R Stry-Howm 6549-J-887-1 41410 - [id number] Implanted:Qt y: 1 on 12/05/2021 by Nura Otero MD at [facility] [place] [facility] Right: Knee [facility] [id number] 06/18/2026 5510-F-5 02 / / [id number] Knee Tib Insrt Cr-X3 0u7w64uc Stry-Howm 7401-S-243-5 44467 - [id number] Implanted:Qt y: 1 on 12/05/2021 by Nura Otero MD at [facility] Right: Knee [facility] [id number] 04/06/2024 5530-G-5 11 / / [id number] Knee Tib Insrt Ps X3 5x11mm Stry-Howm 8422-S-674-5 94505 - [id number] Implanted:Qt y: 1 on 03/12/2022 by Nura Otero MD at [facility] [place] [facility] Left: Tibia [facility] [id number] 09/25/2026 5531-G-5 11 / / [id number] Knee Stem Cmnt Triathlon 12x50 Stry-Howm 9549-H-848-2 40407 - [id number] Implanted:Qt y: 1 on 03/12/2022 by Nura Otero MD at [facility] Left: Tibia [facility] [id number] 01/13/2027 5560-S-1 12 / [id number] Knee Insrt Tib Baseplate Sz 5 Stry-Howm 2886-L-713-5 29022 - [id number] Implanted:Qt y: 1 on 03/12/2022 by Nura Otero MD at [facility] Left: Tibia [facility] [id number] 12/07/2026 5521-B-5 00 / / [id number] Knee Cmpnt Fem Cr Armando Sz 5 Stry-Howm 9117-H-213-6 24832 - [id number] Implanted:Qt y: 1 on 03/12/2022 by Nura Otero MD at [facility] Left: Tibia [facility] [id number] 09/19/2026 5510-F-5 01 / / [id number] Cement Bone Surg Simplex Radiopq Stry-Howm 7547-5-220-1 82493 - [id number] Implanted:Qt y: 1 on 03/12/2022 by Nura Otero MD at [facility] Left: Tibia [facility] 07/15/2023 6191-1-0 10 / / [id number] Cement Bone Surg Simplex Radiopq Stry-Howm 9132-5-869-1 53528 - [id number] Implanted:Qt y: 1 on 03/12/2022 by Nura Otero MD at [facility] Left: Tibia [facility] 07/15/2023 6191-1-0 10 / / [id number] Plug Bone Sm Stry-How 0398-7-233-1 41828 - [id number] Implanted:Qt y: 1 on 03/12/2022 by Nura Otero MD at [facility] Left: Tibia [facility] [id number] 11/19/2026 6215-5-0 01 / / [id number] Cement Bone Surg Simplex Radiopq Stry-How 8962-2-747-1 15601 - [id number] Implanted:Qt y: 1 on 08/02/2023 by Nura Otero MD at [facility] Left: Knee [facility] [id number] 6191-1-0 10 / / [id number] Tibial Bearing Insert Cs 12mm Stry-How 6483-G-501-E -616124 - [id number] Implanted:Qt y: 1 on 08/02/2023 by Nura Otero MD at [facility] Left: Knee [facility] [id number] 09/10/2027 5531-G-5 12-E / / [id number] Knee Pat Asymmetric 47s51oj Stry-Howm 1736-O-036-E -403139 - [id number] Implanted:Qt y: 1 on 08/02/2023 by Nura Otero MD at [facility] Left: Knee [facility] [id number] 09/13/2027 5551-G-3 50-E / / [id number] Ring Attune 18in 31mm 2 Romana Flores Rcd-71-93724 6 - [id number] Implanted:Qt y: 1 on 10/04/2023 by Howard Young MD at [facility] N/A: Heart [facility] 08/23/2027 AFR-31 / [id number] / Plate X Stry-Cran 7760917-2317 80 - [id number] Implanted:Qt y: 2 on 10/04/2023 by Howard Young MD at [facility] N/A: Sternum [facility]Y [employer] [id number] / / Plate Manubrium Stry-Cran 8550140-8350 86 - [id number] Implanted:Qt y: 1 on 10/04/2023 by Howard Young MD at [facility] [place] [facility] N/A: Sternum EDY [employer] [id number] / / Screw Sd Locking 2.3x14mm Stry-Cran 0024645-5610 95 - [id number] Implanted:Qt y: 2 on 10/04/2023 by Howard Young MD at [facility] N/A: Sternum [employer]Y [employer] [id number] / / Screw Sd Locking 2.3x16mm Stry-Cran 9401988-3232 97 - [id number] Implanted:Qt y: 20 on 10/04/2023 by Howard Young MD at [facility] [place] [facility] N/A: Sternum EDY [employer] [id number] / / Explanted Type Area Language Path Device Identifier Shelf Expiration Date Model / Serial / Lot Tibial Bone Screws Explanted:Qty: 2 on 03/12/2022 by Nura Otero MD at [facility] Left: Tibia Advance Directives For more information, please contact: [phone] Latest Code Status on File Code Status Date Activated Date Inactivated Comments Full Code 10/04/2023 5:43 AM 10/11/2023 10:46 PM This code status was ascertained in the following way: discussion with patient. Code Status History Code Status Date Activated Date Inactivated Comments Full Code 08/02/2023 2:43 PM 08/05/2023 9:43 PM Thi s code status was ascertained in the following way: discussion with patient. Full Code 08/02/2023 6:09 AM 08/02/2023 2:43 PM Thi s code status was ascertained in the following way: discussion with patient . Full Code 03/12/2022 1:25 PM 03/17/2022 1:34 AM This c ode status was ascertained in the following way: discussion with patient . Full Code 03/12/2022 9:07 AM 03/12/2022 1:25 PM This code status was ascertained in the following way: discussion with patient . Care Teams Shelf Filler Relationship Specialty Start Date End Date Mario Alberto Isaac MD [address] [place] [id number] PCP - General Internal Medicine 09/11/21
--- OUTSIDE RECORDS SUMMARY | 2025-02-28 14:26 | XMS_ITS | Encounter Summary ---
Author Organization [facility] Address [address] [place] [address] Care Team Providers Care Materials Buyer Name Role Phone Mario Alberto Isaac MD Primary Care Provider [phone] Reason for Visit * Reason Onset Date Comments Faxed Order 02/28/2025 [facility] Encounter Details Date Type Department Care Team (Late st Contact Info) Description 02/28/2025 [facility] [address] [place] [phone] Mario Alberot Isaac MD [address] [place] [phone] Faxed Order ([facility] ) Social History Tobacco Use Types Packs/Day Years Used Date Smoking Tobacco: Former Cigarettes Smokeless Tobacco: Never Alcohol Use Standard Drinks/Week Comments Not Currently 0 (1 standard drink = 0.6 oz pur e alcohol) Sex and Gender Information Value Date Recorded Sex Assigned at Not on file Legal Sex Male 6:03 PM EDT Gender Identity Not on file Sexual Orientation Not on file documented as of this encounter Progress Notes * Dee Montoya - 02/28/2025 9:41 AM EDT Orders from [facility] placed in Mario Alberto Isaac MD bin. Please complete and fax back to [phone]. Thank you documented in this encounter Plan of Treatment Upcoming Encounters Date Type Department Care Team (Late st Contact Info) Description 03/28/2025 11:00 AM EDT Office Visit Internal Medicine - [address] [phone] Mario Alberto Isaac MD [address] [place] [address] 05/10/2025 3:40 PM EDT Office Visit Endocrinology - [address] [phone] Dahlia Hernandez PA [address] [place] [address] documented as of this encounter Visit Diagnoses Not on filedocumented in this encounter Care Teams Materials Buyer Relationship Specialty Start Date End Date Mario Alberto Isaac MD [address] [place] [id number] PCP - General Internal Medicine 05/27/16 documented as of this encounter
== END 2025-02-28 14:21 | disposition home or self-care (01) ==
LOC: HO.HSMS 13:36
PROVIDERS: PCP Internal Medicine; Visit Provider Psychiatry & Neurology Neurology
DX: R26.89 Other abnormalities of gait and mobility (principal)
CPT/HCPCS: 99214; G2211

== ENCOUNTER → 2025-02-28 13:35 | Outpatient (BNVA) | payer MEDICARE, OTHER, SELFPAY | PROVIDERS: PCP Internal Medicine; Visit Provider Psychiatry & Neurology Neurology | DX: R26.89 Other abnormalities of gait and mobility (principal); Z79.899 Other long term (current) drug therapy | CPT/HCPCS: 99212 ==